=== PATIENT | male | born 1950 | race Caucasian/White ===

== ENCOUNTER 2024-04-28 09:52 | Outpatient (OUT) | payer MEDICARE, SELFPAY ==
--- NOTE | 2024-04-28 10:03 | ECG_ITS ---
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
--- NOTE | 2024-04-28 10:50 | PM.PRESUREVA ---
History of Present Illness History of Present Illness Chief complaint: prostate cancer Narrative: Patient presents for preadmission testing. The patient states he has prostate cancer. He reports incomplete bladder emptying, but denies dysuria, hematuria, abdominal pain, or any other complaints. Review of Systems ROS Narrative REVIEW OF SYSTEMS: Negative except as stated in HPI, ten or more systems reviewed. 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 - Nodules of vocal cords (ICD-10) Encephalitis (1960) ?G04.90 - Encephalitis and encephalomyelitis, unspecified (ICD-10) Seizures ?R56.9 - Unspecified convulsions (ICD-10) Elevated PSA ?R97.20 - Elevated prostate specific antigen [PSA] (ICD-10) BPH (benign prostatic hyperplasia) ?N40.0 - Benign prostatic hyperplasia without lower urinary tract symptoms (ICD-10) Kidney stones ?N20.0 - Calculus of kidney (ICD-10) Hypertension ?I10 - Essential (primary) hypertension (ICD-10) High cholesterol ?E78.00 - Pure hypercholesterolemia, unspecified (ICD-10) Prostate cancer ?C61 - Malignant neoplasm of prostate (ICD-10) Surgical History (Updated 04/28/24 @ 10:48 by Dolores Connell NP) S/P excision of vocal cord nodule ?Z98.890 - Other specified postprocedural states (ICD-10) History of tonsillectomy ?Z90.89 - Acquired absence of other organs (ICD-10) History of arthroplasty of knee ?Z96.659 - Presence of unspecified artificial knee joint (ICD-10) History of colonoscopy ?Z98.890 - Other specified postprocedural states (ICD-10) Hx of prostate biopsy ?Z98.890 - Other specified postprocedural states (ICD-10) Family History (Updated 04/28/24 @ 10:26 by Dolores Connell NP) Other Family history of diabetes mellitus Family history of heart disease Family history of hypertension Family history of myocardial infarction Family history of prostate cancer Social History (Updated 04/28/24 @ 10:18 by Dolores Connell NP) Within the past year, how often did you have a drink containing alcohol: 2-3 times a week Smoking status: Former smoker Non-prescribed substance use: denies use Highest level of school completed/degree received: Master's degree Meds Home Medications and Allergies Home Medications ?Medication ?Instructions ?Recorded ?Confirmed ?Type atorvastatin 20 mg tablet 20 mg PO DAILY 04/28/24 04/28/24 History carbamazepine 200 mg tablet 200 mg PO Q12H 04/28/24 04/28/24 History doxycycline hyclate 20 mg tablet 20 mg PO Q12H 04/28/24 04/28/24 History fosinopril 20 mg tablet 20 mg PO DAILY 04/28/24 04/28/24 History hydrochlorothiazide 25 mg tablet 25 mg PO DAILY 04/28/24 04/28/24 History latanoprost 0.005 % eye drops 1 drp ophthalmic (eye) QPM 04/28/24 04/28/24 History multivitamin (Daily Multi-Vitamin 1 tab PO DAILY 04/28/24 04/28/24 History tablet) tamsulosin 0.4 mg capsule 0.4 mg PO Q24H 04/28/24 04/28/24 History Allergies Allergy/AdvReac Type Severity Reaction Status Date / Time No Known Drug Allergies Allergy Verified 04/28/24 10:15 Exam Narrative Exam Narrative: Constitutional: Awake, alert, comfortable, well-appearing, nontoxic, interactive, vital signs as charted Head: Normocephalic, atraumatic Neck: Supple, normal appearance, normal range of motion, no meningeal signs, no lymphadenopathy Respiratory: No respiratory distress, breath sounds clear Cardiovascular: Regular rate and rhythm, strong and regular heart tones Abdomen: Nontender, normal bowel sounds, soft, no CVA tenderness Musculoskeletal: Normal gait, no swelling or edema Skin: No rashes or induration, no lesions, only visible skin inspected Neuro: No neurological deficits, normal sensation Psychiatric: Oriented ?3, normal affect Assessment and Plan Assessment and Plan (1) Prostate cancer: (2) BPH (benign prostatic hyperplasia): (3) Elevated PSA: Plan [place] seed implant scheduled with Dr. Pacheco May 12, 2024.
--- NOTE | 2024-04-28 11:00 | XR_ITS ---
The [address] [address] Patient Name: LIAM MONTAGUE MRN: [id number] date: 1950 Sex: M Assigned Patient Location: [facility] Current Patient Location: [facility] Accession/Order Number: [id number] Exam Date: 04/28/2024 10:55 Report Date: 04/28/2024 11:13 At the request of: SUJIT VALVERDE Procedure: XR chest 2V PROCEDURE: XR chest 2V DATE: 04/28/2024 9:55 AM CDT COMPARISONS: 06/19/2021 CLINICAL INDICATION: 73 years Male Preop exam FINDINGS: The cardiomediastinal silhouette and pulmonary vasculature are within normal limits. The lungs are clear. There is no evidence of pleural effusion or pneumothorax. XR/XR chest 2V IMPRESSION: Chest radiograph is within normal limits. Electronically authenticated by: PATRICIA GOLDSTEIN Date: 04/28/2024 11:13
[2024-04-28 11:04] LABS: Basophils Percent Auto 0.2 % (0.2-2.0); Eosinophils Absolute Auto 0.1 10^3/uL (0.0-0.7); Eosinophils Percent Auto 3.2 % (0.9-7.0); Hematocrit 39.3 % (42.0-54.0); Hemoglobin 13.4 g/dL (14.0-18.0); Immature Granulocytes Abs Auto 0.01 10^3/uL (0.00-0.03); Immature Granulocytes Pct Auto 0.2 % (0.0-0.5); Lymphocytes Absolute Auto 0.4 10^3/uL (1.2-3.8); Lymphocytes Percent Auto 8.7 % (20.5-60.0); Mean Corpuscular HGB Conc 34.1 g/dL (29.9-35.2); Mean Corpuscular Hemoglobin 31.4 pg (25.9-34.0); Mean Platelet Volume 9.4 fL (9.5-13.5); Monocytes Absolute Auto 0.5 10^3/uL (0.3-0.8); Monocytes Percent Auto 12.6 % (1.7-12.0); Neutrophils Absolute Auto 3.1 10^3/uL (1.4-6.5); Neutrophils Percent Auto 75.1 % (43.0-75.0); Platelet Count 163 10^3/uL (150-450); Red Blood Count 4.27 10^6/uL (4.70-6.10); White Blood Count 4.1 10^3/uL (4.0-11.0)
[2024-04-28 11:11] LABS: INR 1.05; Partial Thromboplastin Time 26.2 sec (22.3-36.2); Prothrombin Time 11.1 sec (9.0-11.6)
[2024-04-28 12:17] LABS: Anion Gap 13.7; Carbon Dioxide 29.7 mmol/L (21.0-32.0); Chloride 100 mmol/L (98-107); Estimated GFR (African America >60 (>=60); Estimated GFR (Non-African Ame >60 (>=60); Glucose 116 mg/dL (74-106); Potassium 3.4 mmol/L (3.5-5.1); Sodium 140 mmol/L (136-145)
== END 2024-04-28 09:53 | disposition home or self-care (01) ==
LOC: PST 09:56
PROVIDERS: PCP Internal Medicine; Visit Provider Urology
DX: Z01.810 Encounter for preprocedural cardiovascular examination (principal); Z01.812 Encounter for preprocedural laboratory examination; Z01.818 Encounter for other preprocedural examination; C61 Malignant neoplasm of prostate
CPT/HCPCS: 71046; 80048; 85025; 85610; 85730; 93005; G0463

== ENCOUNTER 2024-05-12 06:34 | Day surgery (SDC) | payer MEDICARE, SELFPAY ==
[2024-04-28 10:42] VITALS: BP 133/83; PULSE 68; TEMP 36.4; O2SAT 95; BMI 34.7
[2024-05-12] VITALS (8 sets, daily range): BP systolic 123–155; BP diastolic 69–107; PULSE 60–84; TEMP 36.3; O2SAT 95–97; BMI 34.5
--- NOTE | 2024-05-12 | XR_ITS ---
[address] [address] Patient Name: LIAM MONTAGUE MRN: [id number] date: 1950 Sex: M Assigned Patient Location: [facility] Current Patient Location: Accession/Order Number: [id number] Exam Date: 05/12/2024 09:00 Report Date: 05/13/2024 07:58 At the request of: SUJIT VALVERDE Procedure: XR pelvis 1-2V EXAMINATION: XR pelvis 1-2V HISTORY: Prostate seed implant COMPARISON: No relevant comparison available. FINDINGS: 14.09 mgy. A single image BOWEL GAS PATTERN: No abnormal dilation or deviation. CALCIFICATIONS: None significant. OTHER: Prostate brachytherapy implants, normally positioned over the pubic symphysis. Contrast opacification of the urinary bladder XR/XR pelvis 1-2V IMPRESSION: Prostate brachytherapy implants Electronically authenticated by: MISSY OLIVER Date: 05/13/2024 07:58
--- OUTSIDE RECORDS SUMMARY | 2024-05-12 06:39 | XMS_ITS | CCD ---
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 Role Phone MD MATIAS YODER Primary Care MD RAFAEL Berger Attending Unavail MD RAFAEL Chau Attending Unavail MD MATIAS FelicianoONY Primary Care MD MATIAS Cruz [place] Primary Care MD RAFAEL Berger Attending Unavail MD MATIAS Feliciano Consulting MD MATIAS Cruz [place] Primary Care MD RAFAEL Berger Attending Unavail MD MATIAS Feliciano [place] Primary Care MD RAFAEL Berger Attending Unavail MD RAFAEL Chau Admitting Unavail Mady Gilmore Consulting Unavailable MD MATIAS YODERONY Primary Care MD RAFAEL Berger Attending Unavail able MD MATIAS YODER [place] Primary Care MD RAFAEL Berger Admitting Unavail able Anusha Gabriel Consulting Un available MD RAFAEL AVALOS Attending Unavail MD MATIAS Feliciano Consulting MD MATIAS Cruz Consulting MD RAFAEL Berger Attending Unavail able MD MATIAS YODER ROXANNE Primary Care REED Gordillo Primary Care Physician Unavail MD James Antonio Attending Provider [phone] NON STAFF Primary Care Provider UnavailREED Diane Attending Unavailable REED FRITZ Referring Unavailable REED FRITZ Referring Unavailable CHRISTIN BAPTISTE Attending Unavailable MD James Valverde Attending Provider DO Reed Fritz Primary Care Provider [phone] James Valverde Admitting Unavailable Reed Fritz Primary Care Unavailable Valverde, James Attending Unavailable Reed Fritz Primary Care Unavailable Valverde, James Attending Unavailable Valverde, James Admitting Unavailable Valverde, James Admitting Unavailable Reed Fritz Primary Care Unavailable Valverde, James Attending Unavailable Unavailable Primary Care Provider Unavailabl e VALVERDE, James R Attending Unavailable VALVERDE, James R Attending Unavailable VALVERDE, James R Attending Unavailable VALVERDE, James R Attending Unavailable VALVERDE, James R Attending Unavailable VALVERDE, James R Attending Unavailable VALVERDE, James R Attending Unavailable VALVERDE, James R Attending Unavailable VALVERDE, James R Attending Unavailable VALVERDE, James R Attending Unavailable ENGELER, G YVES Attending Unavailable ENGELER, G YVES Referring Unavailable ENGELER, G YVES Attending Unavailable ENGELER, G YVES Referring Unavailable ENGELER, G YVES Referring Unavailable ENGELER, G YVES Referring Unavailable ENGELER, G YVES Referring Unavailable ENGELER, G YVES Referring Unavailable ENGELER, G YVES Referring Unavailable ENGELER, G YVES Referring Unavailable ENGELER, G YVES Referring Unavailable ENGELER, G YVES Referring Unavailable ENGELER, G YVES Referring Unavailable ENGELER, G YVES Referring Unavailable ENGELER, G YVES Referring Unavailable EDMUNDO ANGUIANO Attending Unavailable ENGELER, G YVES Referring Unavailable ENGELER, G YVES Referring Unavailable ENGELER, G YVES Attending Unavailable ENGELER, G YVES Attending Unavailable ENGELER, G YVES Referring Unavailable ENGELER, G YVES Referring Unavailable ENGELER, G YVES Attending Unavailable ENGELER, G YVES Referring Unavailable ENGELER, G YVES Attending Unavailable ENGELER, G YVES Referring Unavailable ENGELER, G YVES Referring Unavailable ENGELER, G YVES Referring Unavailable ENGELER, G YVES Attending Unavailable ENGELER, G YVES Referring Unavailable ENGELER, G YVES Referring Unavailable ENGELER, G YVES Attending Unavailable ENGELER, G YVES Referring Unavailable ENGELER, G VYES Attending Unavailable BOBBY KAT Referring Unavailable ENGELER, G YVES Referring Unavailable ENGELER, G YVES Referring Unavailable Allergies Allergy Classification Reported Allergen(s) Allergy Type Date of Onset Reaction(s) Facility (1 source) No Known Medication Allergies; Translations: [No Known Medication Allergies] Propensity to adverse reactions (disorder) [facility] Repository Medications Current Medications Medication Drug Class(es) Dates Sig (Normalized) Sig (Original) acetaminophen 325 mg / HYDROcodone bitartrate 7.5 mg oral tablet (1 source) Opioid Agonist Start: 05-29-2022 take 1 tablet by mouth once [place] 325 mg-7.5 mg oral tablet 1 tab(s), Oral, Once, 1 tab(s), Refill(s) 0, Take 1 hour prior to procedure, [facility] [id number], 183, cm, 04/23/22 12:16:00 EDT, Height/Length Dosing, 113.3, kg, 04/23/22 12:16:00 EDT, Weight Dosing Start Date: 05/29/22 Status: Ordered atorvastatin 20 mg oral tablet (20 sources) HMG-CoA Reductase Inhibitor Start: 04-23-2022 atorvastatin (LIPITOR) 20 mg tablet once daily. 04/23/2022 Active carBAMazepine 200 mg oral tablet (20 sources) Mood Stabilizer Start: 01-12-2023 take 1 tablet by mouth twice daily carBAMazepine (TEGRETOL) 200 mg tablet Take 200 mg by mouth two times a day. 01/12/2023 Active Start: 04-23-2022 carbamazepine Start Date: 04/23/22 Status: Ordered ciprofloxacin 500 mg oral tablet (2 sources) Quinolone Antimicrobial Start: 04-23-2022 take 1 tablet by mouth twice daily Cipro 500 mg Tab 500 mg = 1 tab(s), Oral, BID, Start 3 days prior to procedure., # 14 tab(s), Refills(s) 0, Pharmacy: [facility] [id number], 183, cm, 04/23/22 12:16:00 EDT, Height/Length Dosing, 113.3, kg, 04/23/22 12:16:00 EDT, Weight Dosing Start Date: 04/23/22 Status: Ordered doxycycline hyclate 20 mg oral tablet (20 sources) Tetracycline-class Drug Start: 01-25-2024 take 1 tablet by mouth twice daily doxycycline 20 mg tablet Take 20 mg by mouth two times a day. 01/25/2024 Active Start: 04-23-2022 take 1 tablet by yaritza th every twelve hours doxycycline 20 mg Tab 20 mg = 1 tab(s), Oral, q12hr Start Date: 04/23/22 Status: Ordered fosinopril sodium 20 mg oral tablet (20 sources) Angiotensin Converting Enzyme Inhibitor Start: 04-23-2022 take 1 tablet by mouth once daily Fosinopril Sodium (MONOPRIL) 20 mg tablet Take 1 tablet by mouth once daily. 06/05/2023 Active hydroCHLOROthiazide 25 mg oral tablet (20 sources) Thiazide Diuretic Start: 04-23-2022 End: 02-24-2024 take 1 tablet by mouth once daily hydroCHLOROthiazide 25 mg tablet Take 25 mg by mouth once daily. 04/23/2022 Active latanoprost 0.05 mg/ml ophthalmic solution (20 sources) Prostaglandin Analog Start: 01-25-2024 take 1 drop(s) into the eye(s) once daily at bedtime Latanoprost Active 1 DROPS EYE-BOTH Daily at bedtime January 25, 2024 12:00am Start: 04-23-2022 take 1 drop(s) into the eye(s) once daily at bedtime LATANOPROST, PF, OPHTHALMIC Use 1 Drop in both eyes daily at bedtime. 04/23/2022 Active Start: 04-23-2022 take 1 drop(s) into the eye(s) once daily at bedtime LATANOPROST, PF, OPHTHALMIC Use 1 Drop in both eyes daily at bedtime. 0 04/23/2022 Active Start: 04-23-2022 latanoprost op hthalmic qPM, Refill(s) 0 Start Date: 04/23/22 Status: Ordered tamsulosin hydrochloride 0.4 mg oral capsule (6 sources) alpha-Adrenergic Esthela Start: 04-11-2024 take 1 capsule by mouth once daily at bedtime tamsulosin (FLOMAX) 0.4 mg Take 1 capsule by mouth daily at bedtime. 30 capsule 2 04/11/2024 Active Problems Problem Classification Problem Date Documented Date Episodic/Chronic Cancer of prostate (13 sources) Malignant neoplasm of prostate; Translations: [Malignant tumor of prostate] Onset: 02-10-20 24 Chronic Disorders of lipid metabolism (7 sources) Hypercholesterolemia 04-23-2022 Chronic Epilepsy; convulsions (7 sources) Seizure 04-23-2022 Episodic Essential hypertension (7 sources) Hypertensive disorder 04-23-2022 Chronic Headache; including migraine (7 sources) Headache 04-23-2022 Episodic Hyperplasia of prostate (11 sources) Benign prostatic hypertrophy without outflow obstruction; Translations: [Benign prostatic hyperplasia without lower urinary tract symptoms] Onset: 04-23-20 Chronic Inflammatory conditions of male genital organs (4 sources) Prostatitis 05-27-2023 Episodic Other gastrointestinal disorders (6 sources) Incontinence of feces; Translations: [Full incontinence of feces] Onset: 05-27-20 Episodic Other screening for suspected conditions (not mental disorders or infectious disease) (10 sources) Raised prostate specific antigen; Translations: [Elevated prostate specific antigen [PSA]] Onset: 04-23-20 Episodic Residual codes; unclassified (6 sources) Family history of cancer; Translations: [Family history of malignant neoplasm of prostate] Onset: 04-23-20 Episodic Residual codes; unclassified (5 sources) Family history of prostate cancer 06-25-2022 Episodic Results Test Name Value Interpretation Reference Range Facil ity CNOVon 04-28-2024 CNOV Office Visit (RADTSA) JAYLEN MONTAGUE ([id number]) 1950 M Date Time Provider Department 04/28/24 9:00 AM Lisa RAUSCH During your visit today, we recorded the following information about you: Lisa Rausch MD 04/28/2024 9:34 AM Signed UNIVERSAL PROTOCOL / SAFETY CHECKLIST Procedure to be Performed: prostate volume study Sign In: A Moment of CARE was completed. Personnel directly involved with the procedure wore the appropriate PPE (Personal Protective Equipment). Patient/Surrogate Stated/Verified: PATIENT VERIFIED(optional for EMERGENT procedures): Patient name, Date of , Relevant allergies, and The intended procedure Time Out Communication: Intended patient and procedure match the source documents. Consent documented and matches the intended procedure. Sign Out: SIGN OUT (optional for EMERGENT procedures): No specimen collected. All instruments, equipment, possible retained foreign bodies accounted for. Lisa Rausch MD Allergies As of Date: 04/28/2024 (No Known Allergies) Date Reviewed: 04/18/2024 Reviewed by: Dolores Green, ARTURO - Fully Assessed Primary Visit Diagnosis:Malignant neoplasm of prostate (HCC) [C61] Prescriptions as of 04/28/2024 - tamsulosin (FLOMAX) 0.4 mg Take 1 capsule by mouth daily at bedtime. - carBAMazepine (TEGRETOL) 200 mg tablet Take 200 mg by mouth two times a day. - Fosinopril Sodium (MONOPRIL) 20 mg tablet Take 1 tablet by mouth once daily. - atorvastatin (LIPITOR) 20 mg tablet once daily. - doxycycline 20 mg tablet Take 20 mg by mouth two times a day. - hydroCHLOROthiazide 25 mg tablet Take 25 mg by mouth once daily. - LATANOPROST, PF, OPHTHALMIC Use 1 Drop in both eyes daily at bedtime. Problem List As Of Date: 04/28/2024 (None) Encounter Status:Closed by Lisa RAUSCH on 04/28/24 [facility] CNOVon 04-18-2024 CNOV Office Visit (RADTSA) JAYLEN MONTAGUE ([id number]) 1950 M Date Time Provider Department 04/18/24 2:30 PM EDMUNDO ANGUIANO During your visit today, we recorded the following information about you: Temperature Pulse Respiration Blood pressure 97.6 degrees 71/minute 16/minute 138/81 Weight 118 kg Edmundo Anguiano MD 04/26/2024 2:25 AM Signed Radiation Oncology - On Treatment Review (OTR) Note PATIENT NAME: Jaylen Montague PATIENT DIAGNOSIS: Prostate adenocarcinoma, initial PSA 12.1, biopsy Mil[place] score 4 + 3 = 7 (grade group 3), clinical stage T2a, N0, M0, stage IIC [T1-T2, N0, M0, PSA <20, GG 3] (AJCC 8th ed.), s/p TRUS Random and MR Targeted biopsy. COURSE: definitive Current dose: 3780 cGy in 21 fx Planned dose: 4500 cGy in 25 fx SUBJECTIVE: Tolerating XRT well denies any burning/discomfort urination and notes nocturia 1-2 times and no difficulty straining or starting his stream or hematuria or incontinence/leakage . He does note occasional incomplete emptying and denies any nausea. Some diarrhea recently and endorses fatigue without hot flashes and has good appetite and hydration with stable weight. PHYSICAL EXAM: KPS: 90 General Appearance: Alert and oriented. No acute distress. IMAGING/LAB RESULTS: None TOXICITY ASSESSMENT (CTC v4.0): Fatigue:grade 1 - Fatigue relieved by rest Radiation Dermatitis: grade 0 - No symptoms Diarrhea:grade 1 - Increase to >4 stools per day over baseline; mild increase in ostomy output compared to baseline Proctitis: grade 0 - No symptoms Urinary frequency: grade 1 - present Dysuria: grade 0 - No symptoms Urinary incontinence: grade 0 (No symptoms) Urinary retention: grade 1 - Urinary, suprapubic or intermittent catheter placement not indicated; able to void with some residual Treatment chart checked: Yes Patient treatment site reviewed and verified:Yes Port films reviewed and current:Yes Medications started: None ASSESSMENT/PLAN: Clinically stable. Toxicity within expected parameters. Continue radiation treatment as planned. Discussed the use of Imodium should his diarrhea persist. Edmundo Anguiano MD Allergies As of Date: 04/18/2024 (No Known Allergies) Date Reviewed: 04/18/2024 Reviewed by: Doloers Green RN - Fully Assessed Reason for Visit: Radiotherapy On-treatment Visit [1722] Primary Visit Diagnosis:Malignant neoplasm of prostate (HCC) [C61] Prescriptions as of 04/26/2024 - tamsulosin (FLOMAX) 0.4 mg Take 1 capsule by mouth daily at bedtime. - carBAMazepine (TEGRETOL) 200 mg tablet Take 200 mg by mouth two times a day. - Fosinopril Sodium (MONOPRIL) 20 mg tablet Take 1 tablet by mouth once daily. - atorvastatin (LIPITOR) 20 mg tablet once daily. - doxycycline 20 mg tablet Take 20 mg by mouth two times a day. - hydroCHLOROthiazide 25 mg tablet Take 25 mg by mouth once daily. - LATANOPROST, PF, OPHTHALMIC Use 1 Drop in both eyes daily at bedtime. Problem List As Of Date: 04/18/2024 (None) Encounter Status:Closed by EDMUNDO ANGUIANO on 04/26/24 [facility] CNOVon 04-11-2024 CNOV Office Visit (RADTSA) JAYLEN MONTAGUE ([id number]) 1950 M Date Time Provider Department 04/11/24 2:30 PM Lisa RAUSCH During your visit today, we recorded the following information about you: Temperature Pulse Respiration Blood pressure 97.4 degrees 64/minute 18/minute 158/93 Weight 112.7 kg Lisa Rausch MD 04/11/2024 2:39 PM Signed Radiation Oncology - On Treatment Review (OTR) Note PATIENT NAME: Jaylen Montague PATIENT DIAGNOSIS: Prostate adenocarcinoma, initial PSA 12.1, biopsy Milford score 4 + 3 = 7 (grade group 3), clinical stage T2a, N0, M0, stage IIC [T1-T2, N0, M0, PSA <20, GG 3] (AJCC 8th ed.), s/p TRUS Random and MR Targeted biopsy. COURSE: definitive Current dose: 2880 cGy in 16 fx Planned dose: 4500 cGy in 25 fx SUBJECTIVE: Doing well, still with mild obstructive issues. No significant bowel issues. PHYSICAL EXAM: 04/11/24 1431 BP: 158/93 Pulse: 64 Resp: 18 Temp: 36.3 ?C (97.4 ?F) SpO2: 99% Weight: 112.7 kg (248 lb 7.3 oz) KPS: 100 General Appearance: Alert and oriented. No acute distress. IMAGING/LAB RESULTS: Hemoglobin (g/dL) Date Value 03/31/2024 14.5 Hematocrit (%) Date Value 03/31/2024 41.6 WBC (k/uL) Date Value 03/31/2024 3.85 Platelet Count (k/uL) Date Value 03/31/2024 173 TOXICITY ASSESSMENT (CTC v4.0): Fatigue:grade 1 - Fatigue relieved by rest Radiation Dermatitis: grade 0 - No symptoms Diarrhea:grade 1 Proctitis: grade 0 - No symptoms Urinary frequency: grade 1 Dysuria: grade 0 - No symptoms Urinary incontinence: grade 0 (No symptoms) Urinary retention: grade 1 Treatment chart checked: Yes Patient treatment site reviewed and verified:Yes Port films reviewed and current:Yes Medications started: None ASSESSMENT/PLAN: Patient doing well. Recommend starting Flomax . Chart and imaging reviewed. Continue radiation as outlined. Lisa Rausch MD Allergies As of Date: 04/11/2024 (No Known Allergies) Date Reviewed: 04/11/2024 Reviewed by: Dolores Green RN - Fully Assessed Reason for Visit: Radiotherapy On-treatment Visit [1722] Primary Visit Diagnosis:Malignant neoplasm of prostate (HCC) [C61] Order(s):tamsulosin (FLOMAX) 0.4 mgTake 1 capsule by mouth daily at bedtime.Disp: 30 capsuleRfl: 2 Prescriptions as of 04/11/2024 - tamsulosin (FLOMAX) 0.4 mg Take 1 capsule by mouth daily at bedtime. - carBAMazepine (TEGRETOL) 200 mg tablet Take 200 mg by mouth two times a day. - Fosinopril Sodium (MONOPRIL) 20 mg tablet Take 1 tablet by mouth once daily. - atorvastatin (LIPITOR) 20 mg tablet once daily. - doxycycline 20 mg tablet Take 20 mg by mouth two times a day. - hydroCHLOROthiazide 25 mg tablet Take 25 mg by mouth once daily. - LATANOPROST, PF, OPHTHALMIC Use 1 Drop in both eyes daily at bedtime. Problem List As Of Date: 04/11/2024 (None) Prescriptions ordered this encounter Disp Refills Start End TAMSULOSIN 0.4 MG CAPSULE 30 c* 2 04/11/2024 Route: ORAL Sig: Take 1 capsule by mouth daily at bedtime. Encounter Status:Closed by Lisa RAUSCH on 04/11/24 [facility] CNOVon 04-04-2024 CNOV Office Visit (RADTSA) JAYLEN MONTAGUE ([id number]) 1950 M Date Time Provider Department 04/04/24 2:45 PM Lisa RAUSCH During your visit today, we recorded the following information about you: Temperature Pulse Respiration Blood pressure 97.4 degrees 66/minute 18/minute 150/86 Weight 117.3 kg Lisa Rausch MD 04/04/2024 3:12 PM Signed Radiation Oncology - On Treatment Review (OTR) Note PATIENT NAME: Jaylen Montague PATIENT DIAGNOSIS: Prostate adenocarcinoma, initial PSA 12.1, biopsy Milford score 4 + 3 = 7 (grade group 3), clinical stage T2a, N0, M0, stage IIC [T1-T2, N0, M0, PSA <20, GG 3] (AJCC 8th ed.), s/p TRUS Random and MR Targeted biopsy. COURSE: definitive Current dose: 1980 cGy in 11 fx Planned dose: 4500 cGy in 25 fx SUBJECTIVE: Doing well, mild issues with obstructive symptoms most of the time emptying well. No dysuria or hematuria. PHYSICAL EXAM: 04/04/24 1441 BP: 150/86 Pulse: 66 Resp: 18 Temp: 36.3 ?C (97.4 ?F) SpO2: 99% Weight: 117.3 kg (258 lb 9.6 oz) KPS: 100 General Appearance: Alert and oriented. No acute distress. IMAGING/LAB RESULTS: Hemoglobin (g/dL) Date Value 03/31/2024 14.5 Hematocrit (%) Date Value 03/31/2024 41.6 WBC (k/uL) Date Value 03/31/2024 3.85 Platelet Count (k/uL) Date Value 03/31/2024 173 TOXICITY ASSESSMENT (CTC v4.0): Fatigue:grade 1 - Fatigue relieved by rest Radiation Dermatitis: grade 0 - No symptoms Diarrhea:grade 1 Proctitis: grade 0 - No symptoms Urinary frequency: grade 1 Dysuria: grade 0 - No symptoms Urinary incontinence: grade 0 (No symptoms) Urinary retention: grade 1 Treatment chart checked: Yes Patient treatment site reviewed and verified:Yes Port films reviewed and current:Yes Medications started: None ASSESSMENT/PLAN: Patient doing well. Discussed adding Flomax patient wants to hold off for now. Chart and imaging reviewed. Continue radiation as outlined. Lisa Rausch MD Allergies As of Date: 04/04/2024 (No Known Allergies) Date Reviewed: 04/04/2024 Reviewed by: Dolores Green RN - Fully Assessed Reason for Visit: Radiotherapy On-treatment Visit [1722] Primary Visit Diagnosis:Malignant neoplasm of prostate (HCC) [C61] Prescriptions as of 04/04/2024 - carBAMazepine (TEGRETOL) 200 mg tablet Take 200 mg by mouth two times a day. - Fosinopril Sodium (MONOPRIL) 20 mg tablet Take 1 tablet by mouth once daily. - atorvastatin (LIPITOR) 20 mg tablet once daily. - doxycycline 20 mg tablet Take 20 mg by mouth two times a day. - hydroCHLOROthiazide 25 mg tablet Take 25 mg by mouth once daily. - LATANOPROST, PF, OPHTHALMIC Use 1 Drop in both eyes daily at bedtime. Problem List As Of Date: 04/04/2024 (None) Encounter Status:Closed by Lisa RAUSCH on 04/04/24 Normal [facility] CBC W Auto Differential pane l (Bld)on 03-31-2024 Basophils (Bld) [#/Vol] [facility] Basophils/100 WBC (Bld) 0.3 % [facility] Differential cell count method Nom (Bld) Auto [facility] Eosinophils (Bld) [#/Vol] 0.07 10*3/uL [facility] Eosinophils/100 WBC (Bld) 1.8 % [facility] Erythrocyte distribution width (RBC) [Ratio] 12.3 % 11.5 - 15.0 % [facility] Hematocrit (Bld) [Volume fraction] 41.6 % 39.0 - 51.0 % [facility] Hemoglobin (Bld) [Mass/Vol] 14.5 g/dL 13.0 - 17.0 g/dL [facility] Immature granulocytes (Bld) [#/Vol] [facility] Immature granulocytes/100 WBC (Bld) 0.3 % [facility] Interpretation and review of laboratory results Abnormal [facility] Lymphocytes (Bld) [#/Vol] 0.59 10*3/uL Low [facility] Lymphocytes/100 WBC (Bld) 15.3 % [facility] MCH (RBC) [Entitic mass] 32.2 pg 26.0 - 34.0 pg [facility] MCHC (RBC) [Mass/Vol] 34.9 g/dL 30.5 - 36.0 g/dL [facility] MCV (RBC) [Entitic vol] 92.2 fL 80.0 - 100.0 fL [facility] Monocytes (Bld) [#/Vol] 0.26 10*3/uL NINF [facility] Monocytes/100 WBC (Bld) 6.8 % [facility] Neutrophils (Bld) [#/Vol] 2.91 10*3/uL [facility] Neutrophils/100 WBC (Bld) 75.5 % [facility] Nucleated RBC (Bld) [#/Vol] NINF [facility] Nucleated RBC/100 WBC (Bld) [Ratio] 0.0 % /100 WBC [facility] Platelet mean volume (Bld) [Entitic vol] 10.5 fL 9.0 - 12.7 fL [facility] Platelets (Bld) [#/Vol] 173 10*3/uL [facility] RBC (Bld) [#/Vol] 4.51 10*6/uL 4.20 - 6.00 m/uL [facility] WBC (Bld) [#/Vol] 3.85 10*3/uL [facility] Basophils (Bld) [#/Vol] 10*3/uL Normal <0.11 [facility] Comment on above: Order Comment: Speci men Type: BLOOD SPECIMENOrdering Facility: [facility] Address: [address] [place] [address] Performed By: #### 5 7021-8 ####[facility] LABCLIA [id number] [place] [address] Basophils/100 WBC (Bld) 0.3 % Normal [facility] Comment on above: Order Comment: Speci men Type: BLOOD SPECIMENOrdering Facility: [facility] Address: [address] [place] [address] Performed By: #### 5 7021-8 ####[facility] LABCLIA [id number] [place] [address] Differential cell count method Nom (Bld) Auto Normal [facility] Comment on above: Order Comment: Speci men Type: BLOOD SPECIMENOrdering Facility: [facility] Address: [address] [place] [address] Performed By: #### 5 7021-8 ####[facility] LABCLIA [id number] [place] [address] Eosinophils (Bld) [#/Vol] 0.07 10*3/uL Normal <0.46 [facility] Comment on above: Order Comment: Speci men Type: BLOOD SPECIMENOrdering Facility: [facility] Address: [address] [place] [address] Performed By: #### 5 7021-8 ####[facility] LABCLIA [id number] [place] [address] Eosinophils/100 WBC (Bld) 1.8 % Normal [facility] Comment on above: Order Comment: Speci men Type: BLOOD SPECIMENOrdering Facility: [facility] Address: [address] [place] [address] Performed By: #### 5 7021-8 ####[facility] LABCLIA [id number] [place] [address] Erythrocyte distribution width (RBC) [Ratio] 12.3 % Normal 11.5-15.0 [facility] Comment on above: Order Comment: Speci men Type: BLOOD SPECIMENOrdering Facility: [facility] Address: [address] [place] [address] Performed By: #### 5 7021-8 ####[facility] LABIA [id number] [place] [address] Hematocrit (Bld) [Volume fraction] 41.6 % Normal 39.0-51.0 [facility] Comment on above: Order Comment: Speci men Type: BLOOD SPECIMENOrdering Facility: [facility] Address: [address] [place] [address] Performed By: #### 5 7021-8 ####[facility] LABCLIA [id number] [place] [address] Hemoglobin (Bld) [Mass/Vol] 14.5 g/dL Normal 13.0-17.0 [facility] Comment on above: Order Comment: Speci men Type: BLOOD SPECIMENOrdering Facility: [facility] Address: [address] [place] [address] Performed By: #### 5 7021-8 ####[facility] LABCLIA [id number] [place] [address] Immature granulocytes (Bld) [#/Vol] 10*3/uL Normal <0.10 [facility] Comment on above: Order Comment: Speci men Type: BLOOD SPECIMENOrdering Facility: [facility] Address: [address] [place] [address] Performed By: #### 5 7021-8 ####[facility] LABCLIA [id number] [place] [address] Immature granulocytes/100 WBC (Bld) 0.3 % Normal [facility] Comment on above: Order Comment: Speci men Type: BLOOD SPECIMENOrdering Facility: [facility] Address: [address] [place] [address] Performed By: #### 5 7021-8 ####[facility] LABCLIA [id number] [place] [address] Lymphocytes (Bld) [#/Vol] 0.59 10*3/uL Low 1.00-4.00 [facility] Comment on above: Order Comment: Speci men Type: BLOOD SPECIMENOrdering Facility: [facility] Address: [address] [place] [address] Performed By: #### 5 7021-8 ####[facility] LABCLIA [id number] [place] [address] Lymphocytes/100 WBC (Bld) 15.3 % Normal [facility] Comment on above: Order Comment: Speci men Type: BLOOD SPECIMENOrdering Facility: [facility] Address: [address] [place] [address] Performed By: #### 5 7021-8 ####[facility] LABCLIA [id number] [place] [address] MCH (RBC) [Entitic mass] 32.2 pg Normal 26.0-34.0 [facility] Comment on above: Order Comment: Speci men Type: BLOOD SPECIMENOrdering Facility: [facility] Address: [address] [place] [address] Performed By: #### 5 7021-8 ####[facility] LABCLIA [id number] [place] [address] MCHC (RBC) [Mass/Vol] 34.9 g/dL Normal 30.5-36.0 [facility] Comment on above: Order Comment: Speci men Type: BLOOD SPECIMENOrdering Facility: [facility] Address: [address] [place] [address] Performed By: #### 5 7021-8 ####[facility] LABCLIA [id number] [place] [address] MCV (RBC) [Entitic vol] 92.2 fL Normal 80.0-100.0 [facility] Comment on above: Order Comment: Speci men Type: BLOOD SPECIMENOrdering Facility: [facility] Address: [address] [place] [address] Performed By: #### 5 7021-8 ####[facility] LABIA [id number] [place] [address] Monocytes (Bld) [#/Vol] 0.26 10*3/uL Normal <0.87 [facility] Comment on above: Order Comment: Speci men Type: BLOOD SPECIMENOrdering Facility: [facility] Address: [address] [place] [address] Performed By: #### 5 7021-8 ####[facility] LABCLIA [id number] [place] [address] Monocytes/100 WBC (Bld) 6.8 % Normal [facility] Comment on above: Order Comment: Speci men Type: BLOOD SPECIMENOrdering Facility: [facility] Address: [address] [place] [address] Performed By: #### 5 7021-8 ####[facility] LABCLIA [id number] [place] [address] Neutrophils (Bld) [#/Vol] 2.91 10*3/uL Normal 1.45-7.50 [facility] Comment on above: Order Comment: Speci men Type: BLOOD SPECIMENOrdering Facility: [facility] Address: [address] [place] [address] Performed By: #### 5 7021-8 ####[facility] LABCLIA [id number] [place] [address] Neutrophils/100 WBC (Bld) 75.5 % Normal [facility] Comment on above: Order Comment: Speci men Type: BLOOD SPECIMENOrdering Facility: [facility] Address: [address] [place] [address] Performed By: #### 5 7021-8 ####[facility] LABCLIA [id number] [place] [address] Nucleated RBC (Bld) [#/Vol] 10*3/uL Normal <0.01 [facility] Comment on above: Order Comment: Speci men Type: BLOOD SPECIMENOrdering Facility: [facility] Address: [address] [place] [address] Performed By: #### 5 7021-8 ####[facility] LABCLIA [id number] [place] [address] Nucleated RBC/100 WBC (Bld) [Ratio] 0.0 /100 WBC Normal [facility] Comment on above: Order Comment: Speci men Type: BLOOD SPECIMENOrdering Facility: [facility] Address: [address] [place] [address] Performed By: #### 5 7021-8 ####[facility] LABCLIA [id number] [place] [address] Platelet mean volume (Bld) [Entitic vol] 10.5 fL Normal 9.0-12.7 [facility] Comment on above: Order Comment: Speci men Type: BLOOD SPECIMENOrdering Facility: [facility] Address: [address] [place] [address] Performed By: #### 5 7021-8 ####[facility] LABCLIA [id number] [place] [address] Platelets (Bld) [#/Vol] 173 10*3/uL Normal 150-400 [facility] Comment on above: Order Comment: Speci men Type: BLOOD SPECIMENOrdering Facility: [facility] Address: [address] [place] [address] Performed By: #### 5 7021-8 ####[facility] LABCLIA [id number] [place] [address] RBC (Bld) [#/Vol] 4.51 10*6/uL Normal 4.20-6.00 [facility] Comment on above: Order Comment: Speci men Type: BLOOD SPECIMENOrdering Facility: [facility] Address: [address] [place] [address] Performed By: #### 5 7021-8 ####[facility] LABCLIA [id number] [place] [address] WBC (Bld) [#/Vol] 3.85 10*3/uL Normal 3.70-11.00 [facility] Comment on above: Order Comment: Speci men Type: BLOOD SPECIMENOrdering Facility: [facility] Address: [address] [place] [address] Performed By: #### 5 7021-8 ####[facility] LABCLIA [id number] [place] [address] FLORAOVon 03-31-2024 CNOV Office Visit (RADTSA) CLARIJAYLEN ([id number]) 1950 M Date Time Provider Department 03/31/24 1:45 PM LAB/PORT RADT SANDY NAVEEN During your visit today, we recorded the following information about you: Jorge Raygoza LPN 03/31/2024 2:14 PM Signed Jaylen Montague presents in office today for: Lab Draw only . Ordering Provider: Yves Rausch M.D. Test (s) ordered: CBC Method for obtaining blood: Phlebotomy was performed, accessing left antecubital vein. Needle removed intact. Dressing secured. Patient denies discomfort, dizziness, light-headedness or weakness and left the department without assist. Jorge Raygoza LPN Allergies As of Date: 03/31/2024 (No Known Allergies) Date Reviewed: 03/28/2024 Reviewed by: Jorge Raygoza LPN - Fully Assessed Visit Diagnosis:Malignant neoplasm of prostate (HCC) [C61] Order(s):COMPLETE BLOOD COUNT AND DIFFERENTIAL [SQCBCDIF] Order #: [id number]. #:[id number] Prescriptions as of 03/31/2024 - carBAMazepine (TEGRETOL) 200 mg tablet Take 200 mg by mouth two times a day. - Fosinopril Sodium (MONOPRIL) 20 mg tablet Take 1 tablet by mouth once daily. - atorvastatin (LIPITOR) 20 mg tablet once daily. - doxycycline 20 mg tablet Take 20 mg by mouth two times a day. - hydroCHLOROthiazide 25 mg tablet Take 25 mg by mouth once daily. - LATANOPROST, PF, OPHTHALMIC Use 1 Drop in both eyes daily at bedtime. Problem List As Of Date: 03/31/2024 (None) Visit Notes: >> Jaret Jorge WENCESLAO Vidya Mar 31, 2024 2:14 PM Status: Signed Jaylen Montague presents in office today for: Lab Draw only . Ordering Provider: Yves Rausch M.D. Test (s) ordered: CBC Method for obtaining blood: Phlebotomy was performed, accessing left antecubital vein. Needle removed intact. Dressing secured. Patient denies discomfort, dizziness, light-headedness or weakness and left the department without assist. Jorge Raygoza WENCESLAO Encounter Status:Closed by JORGE RAYGOZA on 03/31/24 Normal [facility] CNOVon 03-28-2024 CNOV Office Visit (RADTSA) JAYLEN MONTAGUE ([id number]) 1950 M Date Time Provider Department 03/28/24 3:30 PM Lisa RAUSCH During your visit today, we recorded the following information about you: Temperature Pulse Respiration Blood pressure 97.6 degrees 60/minute 16/minute 128/83 Weight 117 kg Lisa Rausch MD 03/28/2024 4:14 PM Signed Radiation Oncology - On Treatment Review (OTR) Note PATIENT NAME: Jaylen Montague PATIENT DIAGNOSIS: Prostate adenocarcinoma, initial PSA 12.1, biopsy Vernon score 4 + 3 = 7 (grade group 3), clinical stage T2a, N0, M0, stage IIC [T1-T2, N0, M0, PSA <20, GG 3] (AJCC 8th ed.), s/p TRUS Random and MR Targeted biopsy. COURSE: definitive Current dose: 1080 cGy in 6 fx Planned dose: 4500 cGy in 25 fx SUBJECTIVE: Doing well mild increased bladder and bowel frequency. PHYSICAL EXAM: 03/28/24 1558 BP: 128/83 Pulse: 60 Resp: 16 Temp: 36.4 ?C (97.6 ?F) SpO2: 98% Weight: 117 kg (257 lb 15 oz) KPS: 100 General Appearance: Alert and oriented. No acute distress. IMAGING/LAB RESULTS: None TOXICITY ASSESSMENT (CTC v4.0): Fatigue:grade 1 - Fatigue relieved by rest Radiation Dermatitis: grade 0 - No symptoms Diarrhea:grade 1 Proctitis: grade 0 - No symptoms Urinary frequency: grade 1 Dysuria: grade 0 - No symptoms Urinary incontinence: grade 0 (No symptoms) Urinary retention: grade 0 - No symptoms Treatment chart checked: Yes Patient treatment site reviewed and verified:Yes Port films reviewed and current:Yes Medications started: None ASSESSMENT/PLAN: Patient doing well. Chart and imaging reviewed. Continue radiation as outlined. Lisa Rausch MD Allergies As of Date: 03/28/2024 (No Known Allergies) Date Reviewed: 03/28/2024 Reviewed by: Jorge Raygoza LPN - Fully Assessed Reason for Visit: Radiotherapy On-treatment Visit [1722] Primary Visit Diagnosis:Malignant neoplasm of prostate (HCC) [C61] Prescriptions as of 03/28/2024 - carBAMazepine (TEGRETOL) 200 mg tablet Take 200 mg by mouth two times a day. - Fosinopril Sodium (MONOPRIL) 20 mg tablet Take 1 tablet by mouth once daily. - atorvastatin (LIPITOR) 20 mg tablet once daily. - doxycycline 20 mg tablet Take 20 mg by mouth two times a day. - hydroCHLOROthiazide 25 mg tablet Take 25 mg by mouth once daily. - LATANOPROST, PF, OPHTHALMIC Use 1 Drop in both eyes daily at bedtime. Problem List As Of Date: 03/28/2024 (None) Encounter Status:Closed by Lisa RAUSCH on 03/28/24 [facility] CNOVon 03-21-2024 CNOV Office Visit (RADTSA) JAYLEN MONTAGUE ([id number]) 1950 M Date Time Provider Department 03/21/24 2:15 PM Lisa RAUSCH During your visit today, we recorded the following information about you: Temperature Pulse Respiration Blood pressure 98 degrees 67/minute 16/minute 136/85 Weight 116.6 kg Lisa Rausch MD 03/21/2024 2:51 PM Signed Radiation Oncology - On Treatment Review (OTR) Note PATIENT NAME: Jaylen Montague PATIENT DIAGNOSIS: Prostate adenocarcinoma, initial PSA 12.1, biopsy Vernon score 4 + 3 = 7 (grade group 3), clinical stage T2a, N0, M0, stage IIC [T1-T2, N0, M0, PSA <20, GG 3] (AJCC 8th ed.), s/p TRUS Random and MR Targeted biopsy. COURSE: definitive Current dose: 180 cGy in 1 fx Planned dose: 4500 cGy in 25 fx SUBJECTIVE: Here to start radiation, doing much better after recent COVID infection. PHYSICAL EXAM: KPS: 100 General Appearance: Alert and oriented. No acute distress. IMAGING/LAB RESULTS: None TOXICITY ASSESSMENT (CTC v4.0): Fatigue:grade 1 - Fatigue relieved by rest Radiation Dermatitis: grade 0 - No symptoms Diarrhea:grade 0 - No symptoms Proctitis: grade 0 - No symptoms Urinary frequency: grade 0 - No symptoms Dysuria: grade 0 - No symptoms Urinary incontinence: grade 0 (No symptoms) Urinary retention: grade 0 - No symptoms Treatment chart checked: Yes Patient treatment site reviewed and verified:Yes Port films reviewed and current:Yes Medications started: None ASSESSMENT/PLAN: Patient starting radiation today. Plan of care and expectations again reviewed. Plan, MU calculations and qa report reviewed. Initial imaging including cone beam ct and verification reviewed and approved. First treatment given. Continue radiation as prescribed. Lisa Rausch MD Allergies As of Date: 03/21/2024 (No Known Allergies) Date Reviewed: 03/21/2024 Reviewed by: Jorge Raygoza LPN - Fully Assessed Reason for Visit: Radiotherapy On-treatment Visit [1722] Primary Visit Diagnosis:Malignant neoplasm of prostate (HCC) [C61] Prescriptions as of 03/21/2024 - carBAMazepine (TEGRETOL) 200 mg tablet Take 200 mg by mouth two times a day. - Fosinopril Sodium (MONOPRIL) 20 mg tablet Take 1 tablet by mouth once daily. - atorvastatin (LIPITOR) 20 mg tablet once daily. - doxycycline 20 mg tablet Take 20 mg by mouth two times a day. - hydroCHLOROthiazide 25 mg tablet Take 25 mg by mouth once daily. - LATANOPROST, PF, OPHTHALMIC Use 1 Drop in both eyes daily at bedtime. Problem List As Of Date: 03/21/2024 (None) Encounter Status:Closed by Lisa RAUSCH on 03/21/24 [facility] 03-21-20[facility] JAYLEN MONTAUGE ([id number]) 1950 M Date Time Provider Department 03/21/24 Lisa RAUSCH [employer] During your visit today, we recorded the following information about you: Jorge Raygoza LPN 03/21/2024 10:04 AM Signed CBC order pending your approval. Jorge Raygoza RN Allergies As of Date: 03/21/2024 (No Known Allergies) Date Reviewed: 02/24/2024 Reviewed by: Coby Rae RN - Fully Assessed Reason for Visit: Orders [681] Primary Visit Diagnosis:Malignant neoplasm of prostate (HCC) [C61] Order(s):COMPLETE BLOOD COUNT AND DIFFERENTIAL [SQCBCDIF] Order #: [id number] FUTURE Prescriptions as of 03/21/2024 - carBAMazepine (TEGRETOL) 200 mg tablet Take 200 mg by mouth two times a day. - Fosinopril Sodium (MONOPRIL) 20 mg tablet Take 1 tablet by mouth once daily. - atorvastatin (LIPITOR) 20 mg tablet once daily. - doxycycline 20 mg tablet Take 20 mg by mouth two times a day. - hydroCHLOROthiazide 25 mg tablet Take 25 mg by mouth once daily. - LATANOPROST, PF, OPHTHALMIC Use 1 Drop in both eyes daily at bedtime. Problem List As Of Date: 03/21/2024 (None) Encounter Status:Closed by JORGE RAYGOZA on 03/21/24 [facility] CNOVon 03-09-2024 CNOV Office Visit (RADTSA) CLARIJAYLEN ([id number]) 1950 M Date Time Provider Department 03/09/24 11:00 AM Lisa RAUSCH During your visit today, we recorded the following information about you: Allergies As of Date: 03/09/2024 (No Known Allergies) Date Reviewed: 02/24/2024 Reviewed by: Coby Rae RN - Fully Assessed Reason for Visit: Simulation Request Form [4065] Primary Visit Diagnosis:Malignant neoplasm of prostate (HCC) [C61] Order(s):RADIATION TREATMENT PER RADIATION ONCOLOGIST PLAN [4155839] Order #: [id number]: 1 CT SIM PLANNING RADIATION ONCOLOGY [2701226] Order #: [id number] PT ED CANCER [9861474] Order #: [id number]: 1 Prescriptions as of 03/14/2024 - carBAMazepine (TEGRETOL) 200 mg tablet Take 200 mg by mouth two times a day. - Fosinopril Sodium (MONOPRIL) 20 mg tablet Take 1 tablet by mouth once daily. - atorvastatin (LIPITOR) 20 mg tablet once daily. - doxycycline 20 mg tablet Take 20 mg by mouth two times a day. - hydroCHLOROthiazide 25 mg tablet Take 25 mg by mouth once daily. - LATANOPROST, PF, OPHTHALMIC Use 1 Drop in both eyes daily at bedtime. Problem List As Of Date: 03/09/2024 (None) Encounter Status:Closed by Lisa RAUSCH on 03/14/24 [facility] CNPAnita 03-08-2024 CNPN Telephone (RADTSA) JAYLEN MONTAGUE ([id number]) 1950 M Date Time Provider Department 03/08/24 Lisa RAUSCH During your visit today, we recorded the following information about you: Dolores Green, ARTURO 03/08/2024 11:58 AM Signed Pt called in to let us know that he tested positive for Covid today. He has a SIM appt today and wanted to let us know as he wasn't sure he was allowed to come in. I did inform him he is able to come in and that we just require him to wear a mask. I also offered the option to postpone simulation for a week. Pt prefers to keep appt and will be seen as scheduled on 03/09. Dolores Green RN Allergies As of Date: 03/08/2024 (No Known Allergies) Date Reviewed: 02/24/2024 Reviewed by: Coby Rae, ARTURO - Fully Assessed Reason for Visit: Covid Positive [4049] Prescriptions as of 03/10/2024 - carBAMazepine (TEGRETOL) 200 mg tablet Take 200 mg by mouth two times a day. - Fosinopril Sodium (MONOPRIL) 20 mg tablet Take 1 tablet by mouth once daily. - atorvastatin (LIPITOR) 20 mg tablet once daily. - doxycycline 20 mg tablet Take 20 mg by mouth two times a day. - hydroCHLOROthiazide 25 mg tablet Take 25 mg by mouth once daily. - LATANOPROST, PF, OPHTHALMIC Use 1 Drop in both eyes daily at bedtime. Problem List As Of Date: 03/08/2024 (None) Encounter Status:Closed by DOLORES GREEN on 03/10/24 [facility] CNOVon 02-24-2024 CNOV Office Visit (RADTSA) JAYLEN MONTAGUE ([id number]) 1950 M Date Time Provider Department 02/24/24 2:00 PM Lisa RAUSCH During your visit today, we recorded the following information about you: Temperature Pulse Respiration Blood pressure 98.1 degrees 63/minute 18/minute 134/82 Weight 120.6 kg Lisa Rausch MD 02/24/2024 2:51 PM Signed Radiation Oncology - Prostate Cancer New Patient/Consult Note PATIENT NAME: Jaylen Montague PATIENT REQUESTING PROVIDER: Dr. Valverde DIAGNOSIS: 73 year old male with prostate adenocarcinoma, initial PSA 12.1, biopsy Vernon score 4 + 3 = 7 (grade group 3), clinical stage T2a, N0, M0, stage IIC [T1-T2, N0, M0, PSA <20, GG 3] (AJCC 8th ed.), s/p TRUS Random and MR Targeted biopsy. HPI: 73 year old male with prostate adenocarcinoma who presents for an opinion regarding the role of radiation therapy in the management of the patient's disease. Final recommendations will be communicated back to the requesting physician by way of the shared medical record, or letter to requesting physician via US mail. The patient was diagnosed with prostate cancer and comes in today to discuss treatment options. Patient presented with an elevated PSA 22 years ago, 6.4. He underwent transrectal ultrasound-guided biopsy May 2022 without obvious findings. He has undergone further surveillance. PSA 04/10/2023 12.3, repeated 12/08/2023 11.56 PSA history: 03/18/2022 6.4 He underwent MRI prostate on 01/20/2024 demonstratin cc gland. No obvious skeletal seminal vesicle or lymph node involvement. Within the prostate and the area of T2 hypointensity involving the posterior right peripheral zone, mid gland, measuring 15 x 10 mm with extracapsular extension described. Prostate biopsy using MRI guidance on February 15, 2024 revealed: Adenocarcinoma, [place] 4+3, left mid, right base lateral, right base medial, right mid medial, right apex lateral, right apex medial. Evidence of extraprostatic extension as well as perineural invasion described Total # of positive biopsy cores: 9 Total # of biopsy cores sampled: 16 Greatest % cancer in any single core: Greater than 50% Staging Studies: MR Results: See HPI PET Scan Results: 02/23/2024:HEAD/NECK: * No PSMA expressing neoplastic process. CHEST: * No PSMA expressing neoplastic process. * Few punctate left pulmonary nodules, below PET resolution and can be followed on subsequent imaging. ABDOMENS/PELVIS: * Intense uptake at the right mid gland posterior peripheral zone, with smaller foci of uptake within the left mid gland posterior peripheral zone and apex, compatible with known malignancy. * No PSMA expressing yi metastases. MUSCULOSKELETAL: * No PSMA expressing neoplastic process. Previous Treatment for Prostate Cancer: None Genomic Testing: None The patient reports the following pertinent history: Urinary frequency (D/N): 4-6/1 Dysuria: No Incontinence: 1- No pads Hematuria: No - Total AUA Score: 5 Bowel Movement Frequency: 1/day Bowel Movement Quality: Normal Blood per Rectum: No Last Colonoscopy: 2014, no polyps at the time, 10-year interval colonoscopy recommended Androgen Deprivation: Yes he was started Lupron Prior Radiation Therapy, Collagen Vascular Disease, or Inflammatory Bowel Disease: No Any implanted or external electric devices? No Currently on Anticoagulation: No History of Hip Replacement: No History of Prior TURP: No ALLERGIES No Known Allergies carBAMazepine (TEGRETOL) 200 mg tablet Take 200 mg by mouth two times a day. Fosinopril Sodium (MONOPRIL) 20 mg tablet Take 1 tablet by mouth once daily. atorvastatin (LIPITOR) 20 mg tablet once daily. doxycycline 20 mg tablet Take 20 mg by mouth two times a day. hydroCHLOROthiazide 25 mg tablet Take 25 mg by mouth once daily. LATANOPROST, PF, OPHTHALMIC Use 1 Drop in both eyes daily at bedtime. No past medical history on file. No past surgical history on file. No family history on file. REVIEW OF SYSTEMS: GENERAL: feeling well without fatigue, no recent change in weight NECK: denies swelling or pain in neck RESPIRATORY: no cough, no wheezing or shortness of breath CARDIOVASCULAR: no chest pain, no palpitations SKIN: no rash NEURO: no numbness or paresthesias and no weakness of the extremities As noted in HPI PHYSICAL EXAM: VS: BP 134/82 Pulse 63 Temp 36.7 ?C (98.1 ?F) Resp 18 Wt 120.6 kg (265 lb 14 oz) SpO2 95% KARNOFSKY PERFORMANCE STATUS: 100 General Appearance: Alert and oriented. No acute distress. HEENT: NCAT. Sclera anicteric. PERRL. EOMI. Neck: Normal ROM. No palpable cervical or supraclavicular adenopathy. Chest: No respiratory distress. Lungs clear to auscultation bilaterally. Heart: Regular rate and rhythm. Abdomen: Soft. Nontender. Nondistended. Musculoskeletal: (more content not included)... Normal [facility] PET/CT PROSTATE WBon 07-0 IA PET/CT PROSTATE WB * * *Final Report* * * DATE OF EXAM: Feb 23 2024 3:31PM NRN 0093 - IA PET/CT PROSTATE WB / PROCEDURE REASON: prostate cancer * * * * Physician Interpretation * * * * RESULT: EXAMINATION: PSMA PET-CT CLINICAL HISTORY: 73 year old man with a history of prostate cancer. TECHNIQUE: Radiopharmaceutical was administered IV followed about 60 minutes later by PET imaging from proximal thighs to skull vertex. Free breathing, low dose CT of the same body region was acquired without IV contrast for attenuation correction and anatomic localization. * CT Dose-Length Product (DLP): 376 mGy*cm * CT Dose Reduction Employed: Yes * Radiopharmaceutical Activity: 8.8 mCi * Radiopharmaceutical: F-18 PSMA (Posluma) * All reported standardized uptake values represent maximum SUV (SUVmax) per body weight, unless otherwise specified. COMPARISON: No previous PSMA PET/CT available CORRELATION: No relevant imaging available RESULT: REFERENCES: SUV reference values: * Background salivary gland activity: SUVmax 18.7 * Blood pool (descending aorta) activity: SUVmax 2.1 * Background liver activity: SUVmax 7.9 Appeals Examiner (topogram) images: No additional findings. Notes and limitations: * Standardized uptake values indicate the highest activity concentration (SUVmax) at a given location but can be variable and are not absolute. * Physiologic/non-path ologic uptake is common in salivary glands, lacrimal glands, neural ganglia, liver, spleen, GI tract, and urinary tract. Certain organ systems can have more intense activity, which could confound or obscure some pathology. * Unenhanced imaging is limited for the evaluation of some pathology and the acquired CT was not designed to produce or replace diagnostic CT quality. * PET-CT is often not sensitive for solid pulmonary nodules less than 8 mm. HEAD AND NECK: Head: No abnormal uptake. Bilateral maxillary sinus mucosal thickening. Neck and Lymph Nodes: No abnormal uptake. Thyroid: No abnormal uptake. CHEST: Lungs and Airways: No abnormal uptake. Few punctate left pulmonary nodules, below PET resolution. Pleura and Pericardium: No abnormal uptake. Cardiovascular: No abnormal uptake. Mediastinum and Lymph Nodes: No abnormal uptake. ABDOMEN AND PELVIS: Hepatobiliary: No abnormal uptake. Cholelithiasis. Spleen: No abnormal uptake. Pancreas: No abnormal uptake. Adrenals: No abnormal uptake. Urinary Tract: No abnormal uptake. GI Tract: No abnormal uptake. No dilated bowel. Colonic diverticulosis. Peritoneum: No abnormal uptake. Vasculature: No abnormal uptake. Mild atherosclerotic calcifications. Lymph Nodes: * Abdomen (including common iliac): No abnormal uptake. * Pelvis (below common iliac): No abnormal uptake. Prostate and Seminal Vesicles: Intense uptake at the right mid gland posterior peripheral zone measures SUV max 18.9, with smaller foci of uptake within the left mid gland posterior peripheral zone (SUV max 3.5) and apex (SUV max 7.0). No abnormal uptake in the bilateral seminal vesicles. Pelvis (other): No abnormal uptake. MUSCULOSKELETAL: Osseous: No abnormal uptake. Degenerative changes, including degenerative/inflamm atory uptake localizing to a prominent L4 vertebral body anterior osteophyte. 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 Soft Tissues: No abnormal uptake. IMPRESSION: HEAD/NECK: * No PSMA expressing neoplastic process. CHEST: * No PSMA expressing neoplastic process. * Few punctate left pulmonary nodules, below PET resolution and can be followed on subsequent imaging. ABDOMENS/PELVIS: * Intense uptake at the right mid gland posterior peripheral zone, with smaller foci of uptake within the left mid gland posterior peripheral zone and apex, compatible with known malignancy. * No PSMA expressing yi metastases. MUSCULOSKELETAL: * No PSMA expressing neoplastic process. Transcribe Date/Time: Feb 23 2024 3:51P Dictated by: PINEDA MARTIN MD This examination was interpreted and the report reviewed and electronically signed by: PINEDA MARTIN MD on Feb 23 2024 4:08PM EST Thank you for allowing us to participate in the care of your patient. Should there be any questions regarding this interpretation, please call [phone]. If you are unable to reach us at the number above, please feel free to contact [facility] at [phone]. [id number] CN [facility] CNPNon 02-18-2024 CNPN Telephone (NCCAP) JAYLEN MONTAGUE ([id number]) 1950 M Date Time Provider Department 02/18/24 Lisa RAUSCH [facility] During your visit today, we recorded the following information about you: Alexia Cai 02/18/2024 7:27 AM Signed This form is used for MAIN CAMPUS APPOINTMENTS ONLY. Is this request for a [facility] [place] PET scan appointment? Yes: Chair Springer: Alexia Aparicio Requesting Person (Last Name, First Name): Dr Valverde Area Code + Phone/Pager: [phone] Who do we call to schedule this appointment? Other Contact: [facility] please route to Juliane gan in [place] Requesting Staff Dr Valverde Area Code + Phone/Pager: [phone] PET Orders (A delay in scheduling will result if the orders are not present at time of review): External. Has the External Clinical Order been scanned into [facility]? Yes ADDITIONAL ACTION MAY BE REQUIRED IF PATIENTS OON INSURANCE OR SELF PAY COVERAGE HAS NOT BEEN CLEARED FOR REQUESTED APPOINTMENT. Scheduling: GEMMA: As soon as insurance will allow What account will this PET appointment be linked to? P/F Type of PET: Oncology: Are there additional diagnostic CT scans required to be done at time of PET scan? No Is the request for a PET MR ? No What account will diagnostic testing appointment be linked to? P/F Will the patient need anesthesia? 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 Primary Insurance: [employer] Diagnosis: Prostate Cancer C61 Initial/Subsequent: Initial Pathology: 01-29-24 OSH Adenocarcinoma 3+4= 7 GS Labs: 10 months ago PSA 12.1 1 year ago PSA 6.49 Clinical Notes Reviewed: 02-10-24 OSH Date of last: na Additional Information/Imaging: na REV 02.08.24 Initial: Yes if yes, please schedule as requested by patient or office. Subsequent: No If yes, Date of Last Image: Positive Scan: or Negative Scan: , Please answer Yes or No. Isotope used: Positive or Negative Scan? (+) = Schedule at Place of last DOS (-) =Schedule at ANY PSMA site Isotope used: 18F / F18: Please schedule in the Region. GA68: Please schedule at . Auth#: [id number] Date Range 02-10-24 to 08-08-24 for 1 dos NPI: Member ID: Online: Case/Ref#: Notes: Called mesha Lawler corrected place of service and removed name Dr Antelmo Hyman as site name, changed to [facility]. PSMA PET 43403/ Locametz (GALLIUM GA-68 GOZETOTIDE) (6 mCi), A9800- Posluma (FLOTUFOLASTAT F18) (8 mCi), U2696-Trefvv Alexia Cai 02/18/2024 1:54 PM Signed Patient is scheduled. Allergies As of Date: 02/18/2024 (Not on File) Date Reviewed: Never Reviewed Reason for Visit: Nm Pet Request [6473] Problem List As Of Date: 02/18/2024 (None) Encounter Status:Closed by ALEXIA CAI on 02/19/24 [facility] Ambulatory Visit Summaryon 0 02-17-2024 Ambulatory Visit Summary JAYLEN MONTAGUE :1950 Visit Date:02/17/2024 Ambulatory Visit Instructions Your Diagnosis Prostate cancer BPH (benign prostatic hyperplasia) Family history of prostate cancer in father Your Care Team Attending Physician - James VALVERDE MD Primary Care Physician - REED FRITZ DO This Is Your Medications List Contact prescribing physician if questions or concerns atorvastatin (atorvastatin 20 mg Tab) carbamazepine fosinopril (fosinopril 20 mg Tab) hydrochlorothiazide (hydrochlorothiazide 25 mg Tab) latanoprost ophthalmic Procedures Performed MRI-US fusion guided transperineal biopsy of prostate (06/11/2022), Colonoscopy, Knee replacement, Tonsillectomy. Discharge Vitals Temperature (Temporal Artery) 37 ?C Heart Rate (Peripheral) 63 Respiratory Rate 16 Blood Pressure 137/76 Height 183 cm Height 72 in Weight 113 kg Weight 248.6 lb BMI 33.74 What to do next Scheduled Follow-Up Appointments Thursday 2:45 PM EST With: James VALVERDE MD Where: [facility] [address] [place] [address]- \.br\ You Need to Schedule the Following Appointments\.br\ Follow Up with James VALVERDE MD, URL When: \.br\ Where:\.br\ [facility] [address]\.br\ [place] [address]-\.br\ Medications\.br\ What How Much When Instructions\.br\ Unchanged atorvastatin (atorvastatin 20 mg Tab) 1 Tablets By Mouth Every day Contact prescribing physician if questions or concerns \.br\ Unchanged carbamazepine Contact prescribing physician if questions or concerns \.br\ Unchanged fosinopril (fosinopril 20 mg Tab) 1 Tablets By Mouth Every day Contact prescribing physician if questions or concerns \.br\ Unchanged hydrochlorothiazide (hydrochlorothiazide 25 mg Tab) 1 Tablets By Mouth Every day Contact prescribing physician if questions or concerns \.br\ Unchanged latanoprost ophthalmic Once a day (in the evening) Contact prescribing physician if questions or concerns \.br\ Medications and Immunizations Administered\.br\ Given\.br\ Eligard 45 mg/6 months subcutaneous injection, extended release, 45 mg, SubCutaneous. For: Prostate cancer\.br\ Allergies\.br\ No Known Medication Allergies\.br\ Problems\.br\ Ongoing - Any problem that you are currently receiving treatment for.\.br\ BPH (benign prostatic hyperplasia)\.br\ Elevated PSA\.br\ Family history of prostate cancer in father\.br\ Fecal incontinence\.br\ Headache\.br\ High cholesterol\.br\ Hypertension\.br\ Prostate cancer\.br\ Prostatitis\.br\ Seizures\.br\ Patient Survey\.br\ You may receive a survey via text or e-mail asking about your office visit. Please share your experience with us by completing your survey. We appreciate your feedback and thank you for choosing us for your care.\.br\ Education Materials\.br\ Hormone Suppression Therapy for Prostate Cancer\.br\ \.br\ Hormone suppression therapy is a treatment for prostate cancer that can help slow the growth of cancer cells in the prostate gland. It is also called androgen deprivation therapy (ADT) or androgen suppression therapy. Hormone suppression therapy targets male sex hormones (androgens) in the body that help cancer cells grow.\.br\ Hormone suppression therapy alone will not cure prostate cancer, but it can slow the growth of cancer cells and may shrink tumors over time. Your health care provider can help you find the best treatment that fits your lifestyle. Hormone suppression therapy may be used in the following cases:\.br\ ? \.br\ When prostate cancer has spread too far to other places in the body and cannot be cured by surgery or radiation.\.br\ ? \.br\ When a person has health problems that prevent the use of surgery or radiation.\.br\ ? \.br\ Before radiation to help shrink the size of the cancer and make the radiation treatment more effective.\.br\ ? \.br\ If the prostate cancer remains or comes back following treatment with surgery or radiation.\.br\ What are the types of hormone suppression therapy?\.br\ Orchiectomy\.br\ Orchiectomy, also called surgical castration, is a surgery to remove one or both testicles. The testicles make the two main androgens?testostero ne and dihydrotestosterone (DHT). This surgery reduces the levels of testosterone in the blood, leading to decreased androgen production.\.br\ Medicine therapy\.br\ Medicine therapy, also called medical or chemical castration, involves taking medicines to keep your body from making or using androgens. Medicines can do this in one of three ways:\.br\ 1. \.br\ Reducing androgen production by the testicles.\.br\ ? \.br\ Luteinizing hormone-releasing hormone (LHRH) agonists. These medicines are injected or implanted under your skin to lower the amount of androgens that your testicles make. Depending on the medicine, they can be given monthly or up to every 3 to 6 months. If you take these medicines, you may also be prescribed other medicines to help with side effects.\.br\ ? \.br\ LHRH antagonists. These medicines also work to lower the amount of androgens made in the testicles, but they work faster than LHRH agonist medicines and have less severe side effects. They are given as a monthly injection under the skin, and they are used when prostate cancer is in an advanced stage.\.br\ ? \.br\ Estrogens. These medicines are female hormones that help to reduce androgen production by the testicles. Estrogens are not used as commonly as other types of hormone suppression therapy due to their side effects. However, they may be used if other treatments do not work.\.br\ 2. \.br\ Blocking androgen attachment throughout the body.\.br\ ? \.br\ Anti-androgen medicines, also called androgen receptor antagonists, block areas on the body where androgens attach. These are pills that are usually used in combination with other types of hormone suppression therapy, like orchiectomy and other medicines.\.br\ 3. \.br\ Blocking androgen production throughout the body.\.br\ ? \.br\ Androgen synthesis inhibitor medicines. These medicines help to stop other areas of the body from making androgens. They are taken as pills. They may be used if the prostate cancer is advanced and has not gotten better with surgery or other medicines. A steroid medicine may be given with this type of medicine to help with side effects.\.br\ What are the risks?\.br\ Hormone suppression therapy may cause side effects, including:\.br\ ? \.br\ Hot flashes.\.br\ ? \.br\ Diarrhea and nausea.\.br\ ? \.br\ Itching.\.br\ ? \.br\ Sexual side effects, such as:\.br\ ? \.br\ Decrease or lack of sexual desire.\.br\ ? \.br\ Decrease in size of the penis or testicles.\.br\ ? \.br\ Inability to get an erection (erectile dysfunction, or impotence).\.br\ ? \.br\ Breast tenderness or increase in breast size.\.br\ ? \.br\ Fatigue.\.br\ ? \.br\ Weight gain.\.br\ ? \.br\ Anemia.\.br\ ? \.br\ Thinning of the bones (osteoporosis) and loss of muscle mass.\.br\ ? \.br\ Depression, mood swings, and trouble with thinking or focusing.\.br\ Hormone suppression therapy may also increase your risk of high blood pressure, increased cholesterol levels, stroke, heart attack, or diabetes.\.br\ What are the benefits?\.br\ One of the main benefits of hormone suppression therapy is having additional treatment options. You may have only one type of treatment, or two or more types at the same time. Treatments may be combined to:\.br\ ? \.br\ Help with side effects.\.br\ ? \.br\ Treat advanced cancer.\.br\ Where to find more information\.br\ ? \.br\ [place] [employer] Society: www.cancer.org\.br\ ? \.br\ National Cancer [place]: www.cancer.gov\.br\ Contact a health care provider if:\.br\ ? \.br\ You have pain or side effects that do not get better with treatment.\.br\ ? \.br\ You have trouble urinating.\.br\ ? \.br\ You have new side effects that do not go away.\.br\ Get help right away if:\.br\ ? \.br\ You have severe chest pain.\.br\ ? \.br\ You have trouble breathing.\.br\ ? \.br\ You have an irregular heartbeat.\.br\ ? \.br\ You have numbness or paralysis in the lower half of your body.\.br\ ? \.br\ You are confused.\.br\ ? \.br\ You have trouble talking or understanding speech.\.br\ These symptoms may be an emergency. Do not wait to see if the symptoms will go away. Get medical help right away. Call your local emergency services (911 in the [place] Do not drive yourself to the hospital.\.br\ Summary\.br\ [facility] Patient Educationon 02-17-20 Patient Education Oncology Hormone Suppression Therapy for Prostate Cancer Hormone suppression therapy is a treatment for prostate cancer that can help slow the growth of cancer cells in the prostate gland. It is also called androgen deprivation therapy (ADT) or androgen suppression therapy. Hormone suppression therapy targets male sex hormones (androgens) in the body that help cancer cells grow. Hormone suppression therapy alone will not cure prostate cancer, but it can slow the growth of cancer cells and may shrink tumors over time. Your health care provider can help you find the best treatment that fits your lifestyle. Hormone suppression therapy may be used in the following cases: ? When prostate cancer has spread too far to other places in the body and cannot be cured by surgery or radiation. ? When a person has health problems that prevent the use of surgery or radiation. ? Before radiation to help shrink the size of the cancer and make the radiation treatment more effective. ? If the prostate cancer remains or comes back following treatment with surgery or radiation. What are the types of hormone suppression therapy? Orchiectomy Orchiectomy, also called surgical castration, is a surgery to remove one or both testicles. The testicles make the two main androgens?testostero ne and dihydrotestosterone (DHT). This surgery reduces the levels of testosterone in the blood, leading to decreased androgen production. Medicine therapy Medicine therapy, also called medical or chemical castration, involves taking medicines to keep your body from making or using androgens. Medicines can do this in one of three ways: 1. Reducing androgen production by the testicles. ? Luteinizing hormone-releasing hormone (LHRH) agonists. These medicines are injected or implanted under your skin to lower the amount of androgens that your testicles make. Depending on the medicine, they can be given monthly or up to every 3 to 6 months. If you take these medicines, you may also be prescribed other medicines to help with side effects. ? LHRH antagonists. These medicines also work to lower the amount of androgens made in the testicles, but they work faster than LHRH agonist medicines and have less severe side effects. They are given as a monthly injection under the skin, and they are used when prostate cancer is in an advanced stage. ? Estrogens. These medicines are female hormones that help to reduce androgen production by the testicles. Estrogens are not used as commonly as other types of hormone suppression therapy due to their side effects. However, they may be used if other treatments do not work. 2. Blocking androgen attachment throughout the body. ? Anti-androgen medicines, also called androgen receptor antagonists, block areas on the body where androgens attach. These are pills that are usually used in combination with other types of hormone suppression therapy, like orchiectomy and other medicines. 3. Blocking androgen production throughout the body. ? Androgen synthesis inhibitor medicines. These medicines help to stop other areas of the body from making androgens. They are taken as pills. They may be used if the prostate cancer is advanced and has not gotten better with surgery or other medicines. A steroid medicine may be given with this type of medicine to help with side effects. What are the risks? Hormone suppression therapy may cause side effects, including: ? Hot flashes. ? Diarrhea and nausea. ? Itching. ? Sexual side effects, such as: ? Decrease or lack of sexual desire. ? Decrease in size of the penis or testicles. ? Inability to get an erection (erectile dysfunction, or impotence). ? Breast tenderness or increase in breast size. ? Fatigue. ? Weight gain. ? Anemia. ? Thinning of the bones (osteoporosis) and loss of muscle mass. ? Depression, mood swings, and trouble with thinking or focusing. Hormone suppression therapy may also increase your risk of high blood pressure, increased cholesterol levels, stroke, heart attack, or diabetes. What are the benefits? One of the main benefits of hormone suppression therapy is having additional treatment options. You may have only one type of treatment, or two or more types at the same time. Treatments may be combined to: ? Help with side effects. ? Treat advanced cancer. Where to find more information ? [place] [employer]: www.cancer.org ? National Cancer [place]: www.cancer.gov Contact a health care provider if: ? You have pain or side effects that do not get better with treatment. ? You have trouble urinating. ? You have new side effects that do not go away. Get help right away if: ? You have severe chest pain. ? You have trouble breathing. ? You have an irregular heartbeat. ? You have numbness or paralysis in the lower half of your body. ? You are confused. ? You have trouble talking or understanding speech. These symptoms may be an emergenc (more content not included)... [facility] Urology Office/Clinic Noteon 02-17-2024 Urology Office/Clinic Note Chief Complaint prostate cancer HPI Staff Pt is here for 1st Eligard injection. Dx: prostate cancer, BPH and family hx of prostate cancer (father) PSA: 03/19/22 - 6.49 04/10/23 - 12.3 12/08/23 - 11.56 S/p MRI fusion TRUS bx 01/29/24 - Op note: 6 biopsies taken from [facility]. 6 biopsies were taken from L side base to apex. 6 biopsies were taken from R side base to apex. Total of 18 biopsies from 13 regions. Pathology: 9/16 cores, GG3, GS7 (4+3). PNI identified. EPE identified. All biopsies taken from [facility] are positive. No urinary complaints at this time. History of Present Illness Tests reviewed: reviewed UA I have reviewed the previous health record information and history for this patient from Dr. Valverde. I have reviewed and verified the staff HPI to be accurate for this encounter. There have been no associated fever, chills, flank pain, or blood in the urine. Denies any urinary infections since last encounter. Review of Systems PHQ Score Initial Depression Screen Score: 0 SCORE ROS - Provider Constitutional: denies weight loss, denies hot flashes. Eyes: denies eye problems. Gastrointestinal: denies nausea, denies vomiting. Cardiovascular: denies chest pain or angina. Integumentary: no dryness Musculoskeletal: denies musculoskeletal symptoms. ENMT: denies otolaryngeal symptoms. Respiratory: no shortness of breath. Heme/Lymph: denies easy bleeding tendency, denies easy bruising tendency. Psychiatric: no confusion, no anxiety. Genitourinary: See HPI. Physical Exam Vitals & Measurements T: 37 ?C(Temporal Artery) HR: 63(Peripheral) RR: 16 BP: 137/76 HT: 72 in HT: 183 cm WT: 113 kg WT: 248.6 lb BMI: 33.74 General Appearance: alert, no distress, well nourished, well developed male. Genitourinary: normal scrotum, normal testes, normal urethra, normal epididymis, normal vas deferens/spermatic cord. Flank Pain: none. Bladder: nonpalpable. Assessment/Plan 1. Prostate cancer (C61: Malignant neoplasm of prostate) PSA: 03/19/22 - 6.49 04/10/23 - 12.3 12/08/23 - 11.56 MRI prostate 05/13/22 [facility] [place] PI-RADS 4, posterior aspect of the R peripheral zone at the mid gland measuring 11 x 7 mm. No evidence of gross extraprostatic extension. Prostate volume 40 cc. S/p MRI prostate fusion bx 06/11/22 - All benign. FAY 12/23/23 35 g, no nodules. [1] MRI of prostate 01/20/24 - Previously id'd focal area involving the posterior aspect of the R peripheral zone at the level of the mid gland appears to have increased in size now measuring 15 x 10 mm, once measuring 11 x 7 mm. PI-RADS 5. There appears to be extracapsular extension present. Prostate volume 35 cc. S/p MRI fusion TRUS bx 01/29/24 - Op note: 6 biopsies taken from [facility]. 6 biopsies were taken from L side base to apex. 6 biopsies were taken from R side base to apex. Total of 18 biopsies from 13 regions. Pathology: 05/09 cores, GG3, GS7 (4+3). PNI identified. EPE identified. All biopsies taken from [facility]I are positive. PSMA PET was approved but pt is still waiting for a call to schedule it. Has appt with Dr. Rausch next Thu02/24/24. Discussed pt is expected to respond well to Eligard injections. First Eligard 45 mgIM injection given today with no complications. Left glute. Pt. denies side effects at this time. Follow up 6 mos Eligard, PSA or sooner if needed. Pt understands and agrees with plan. 2. BPH (benign prostatic hyperplasia) (N40.0: Benign prostatic hyperplasia without lower urinary tract symptoms) UA today negative for blood and infection. Not taking any BPH meds. IPSS not completed (7). 3. Family history of prostate cancer in father (Z80.42: Family history of malignant neoplasm of prostate) Follow-up With When Contact Information NICOLLE ALBERTS, James Valente, URL [facility] [address], [place] [address]- Additional Instructions: 6 mos Eligard, PSA Patient Education Hormone Suppression Therapy for Prostate Cancer I, Stephie Ontiveros, personally scribed for Dr. Valverde on 02/17/2024 15:39:04. . Documentation recorded by the scribe, Stephie Ontiveros, accurately reflects the services(s) I performed and decisions made by me. Authenticated by Dr. Valverde on 02/17/2024 15:42:38. Problem List/Past Medical History Ongoing BPH (benign prostatic hyperplasia) Elevated PSA Family history of prostate cancer in father Fecal incontinence Headache High cholesterol Hypertension Prostate cancer Prostatitis Seizures Historical No qualifying data Procedure/Surgical History MRI-US fusion guided transperineal biopsy of prostate (06/11/2022), Colonoscopy, Knee replacement, Tonsillectomy. Medications atorvastatin 20 mg Tab, 20 mg= 1 tab(s), Oral, Daily carbamazepine fosinopril 20 mg Tab, 20 mg= 1 tab(s), Oral, Daily hydrochlorothiazide 25 mg Tab, 25 mg= 1 tab(s), Oral, Daily latanoprost ophthalmic, qPM Allergies No Known Medication Allergies Social History (more content not included)... [facility] Comment on above: Result Comment: Elec tronically Signed By: NICOLLE ALBERTS, James Valente\.br\Date and Time Signed: 02/17/24 15:42 EDT\.br\Electronically Co-Signed By: Stephie Ontiveros\.br\Date and Time Co-Signed: 02/17/24 15:39 EDT Insurance Correspondenceon 0 02-11-2024 Insurance Correspondence [id number] 5#1.00TIFF [facility] Insurance Correspondence [id number] #1.00TIFF [facility] Physician Orderon 02-11-2024 Physician Order [id number] #1.00TIFF [facility] Screenson 02-11-2024 Screens [id number] 9#1.00TIFF [facility] Ambulatory Visit Summaryon 0 02-10-2024 Ambulatory Visit Summary JAYLEN MONTAGUE :1950 Visit Date:02/10/2024 Ambulatory Visit Instructions Your Diagnosis Prostate cancer BPH (benign prostatic hyperplasia) Family history of prostate cancer in father Your Care Team Attending Physician - James VALVERDE MD Primary Care Physician - REED FRITZ DO This Is Your Medications List Contact prescribing physician if questions or concerns atorvastatin (atorvastatin 20 mg Tab) carbamazepine fosinopril (fosinopril 20 mg Tab) hydrochlorothiazide (hydrochlorothiazide 25 mg Tab) latanoprost ophthalmic Procedures Performed MRI-US fusion guided transperineal biopsy of prostate (06/11/2022), Colonoscopy, Knee replacement, Tonsillectomy. Discharge Vitals Heart Rate (Peripheral) 62 Respiratory Rate 16 Blood Pressure 134/70 Height 183 cm Height 72 in Weight 113 kg Weight 248.6 lb BMI 33.74 What to do next Scheduled Follow-Up Appointments Thursday. 2024 1:15 PM EDT With: NICOLLE ALBERTS, James Valente Where: [facility] Insurance Correspondenceon 0 02-10-2024 Insurance Correspondence [id number] #1.00TIFF [facility] Patient Educationon 02-10-20 24 Patient Education Oncology Hormone Suppression Therapy for Prostate Cancer Hormone suppression therapy is a treatment for prostate cancer that can help slow the growth of cancer cells in the prostate gland. It is also called androgen deprivation therapy (ADT) or androgen suppression therapy. Hormone suppression therapy targets male sex hormones (androgens) in the body that help cancer cells grow. Hormone suppression therapy alone will not cure prostate cancer, but it can slow the growth of cancer cells and may shrink tumors over time. Your health care provider can help you find the best treatment that fits your lifestyle. Hormone suppression therapy may be used in the following cases: ? When prostate cancer has spread too far to other places in the body and cannot be cured by surgery or radiation. ? When a person has health problems that prevent the use of surgery or radiation. ? Before radiation to help shrink the size of the cancer and make the radiation treatment more effective. ? If the prostate cancer remains or comes back following treatment with surgery or radiation. What are the types of hormone suppression therapy? Orchiectomy Orchiectomy, also called surgical castration, is a surgery to remove one or both testicles. The testicles make the two main androgens?testostero ne and dihydrotestosterone (DHT). This surgery reduces the levels of testosterone in the blood, leading to decreased androgen production. Medicine therapy Medicine therapy, also called medical or chemical castration, involves taking medicines to keep your body from making or using androgens. Medicines can do this in one of three ways: 1. Reducing androgen production by the testicles. ? Luteinizing hormone-releasing hormone (LHRH) agonists. These medicines are injected or implanted under your skin to lower the amount of androgens that your testicles make. Depending on the medicine, they can be given monthly or up to every 3 to 6 months. If you take these medicines, you may also be prescribed other medicines to help with side effects. ? LHRH antagonists. These medicines also work to lower the amount of androgens made in the testicles, but they work faster than LHRH agonist medicines and have less severe side effects. They are given as a monthly injection under the skin, and they are used when prostate cancer is in an advanced stage. ? Estrogens. These medicines are female hormones that help to reduce androgen production by the testicles. Estrogens are not used as commonly as other types of hormone suppression therapy due to their side effects. However, they may be used if other treatments do not work. 2. Blocking androgen attachment throughout the body. ? Anti-androgen medicines, also called androgen receptor antagonists, block areas on the body where androgens attach. These are pills that are usually used in combination with other types of hormone suppression therapy, like orchiectomy and other medicines. 3. Blocking androgen production throughout the body. ? Androgen synthesis inhibitor medicines. These medicines help to stop other areas of the body from making androgens. They are taken as pills. They may be used if the prostate cancer is advanced and has not gotten better with surgery or other medicines. A steroid medicine may be given with this type of medicine to help with side effects. What are the risks? Hormone suppression therapy may cause side effects, including: ? Hot flashes. ? Diarrhea and nausea. ? Itching. ? Sexual side effects, such as: ? Decrease or lack of sexual desire. ? Decrease in size of the penis or testicles. ? Inability to get an erection (erectile dysfunction, or impotence). ? Breast tenderness or increase in breast size. ? Fatigue. ? Weight gain. ? Anemia. ? Thinning of the bones (osteoporosis) and loss of muscle mass. ? Depression, mood swings, and trouble with thinking or focusing. Hormone suppression therapy may also increase your risk of high blood pressure, increased cholesterol levels, stroke, heart attack, or diabetes. What are the benefits? One of the main benefits of hormone suppression therapy is having additional treatment options. You may have only one type of treatment, or two or more types at the same time. Treatments may be combined to: ? Help with side effects. ? Treat advanced cancer. Where to find more information ? [place] [employer]: www.cancer.org ? National Cancer [place]: www.cancer.gov Contact a health care provider if: ? You have pain or side effects that do not get better with treatment. ? You have trouble urinating. ? You have new side effects that do not go away. Get help right away if: ? You have severe chest pain. ? You have trouble breathing. ? You have an irregular heartbeat. ? You have numbness or paralysis in the lower half of your body. ? You are confused. ? You have trouble talking or understanding speech. These symptoms may be an emergenc (more content not included)... Normal [facility] Urology Office/Clinic Noteon 02-10-2024 Urology Office/Clinic Note Chief Complaint Follow up to MRI fusion bx HPI Staff F/u to fusion bx. MRI of prostate 01/20/24. Previous DX: BPH, elevated PSA, family history of prostate cancer. S/P MRI fusion biopsy 06/11/22. S/p MRI fusion TRUS bx 01/29/24 - 05/09 cores, GG3, GS7 (4+3). Dysuria: denies pain or burning Incomplete bladder emptying: denies Hematuria: denies visible blood Frequency: denies Urgency: denies Nocturia: denies Stream: denies hesitancy, denies weak stream Leaking: denies Post void dripping: denies Wearing pads/ Depends: denies Urge incontinence: denies Stress incontinence: denies Incontinence without Sensory Awareness: denies Abdominal pain: denies Flank pain: denies Sexual complaints: denies History of Present Illness Tests reviewed: reviewed UA I have reviewed the previous health record information and history for this patient from Dr. Valverde. I have reviewed and verified the staff HPI to be accurate for this encounter. There have been no associated fever, chills, flank pain, or blood in the urine. Denies any urinary infections since last encounter. Review of Systems PHQ Score Initial Depression Screen Score: 0 SCORE ROS - Provider Constitutional: denies weight loss, denies hot flashes. Eyes: denies eye problems. Gastrointestinal: denies nausea, denies vomiting. Cardiovascular: denies chest pain or angina. Integumentary: no dryness Musculoskeletal: denies musculoskeletal symptoms. ENMT: denies otolaryngeal symptoms. Respiratory: no shortness of breath. Heme/Lymph: denies easy bleeding tendency, denies easy bruising tendency. Psychiatric: no confusion, no anxiety. Genitourinary: See HPI. Physical Exam Vitals & Measurements HR: 62(Peripheral) RR: 16 BP: 134/70 HT: 72 in HT: 183 cm WT: 113 kg WT: 248.6 lb BMI: 33.74 General Appearance: alert, no distress, well nourished, well developed male. Genitourinary: normal scrotum, normal testes, normal urethra, normal epididymis, normal vas deferens/spermatic cord. Flank Pain: none. Bladder: nonpalpable. Assessment/Plan Pt accompanied by an adult female today. 1. Prostate cancer (C61: Malignant neoplasm of prostate) PSA: 03/19/22 - 6.49 04/10/23 - 12.3 12/08/23 - 11.56 MRI prostate 05/13/22 [facility] [place] PI-RADS 4, posterior aspect of the R peripheral zone at the mid gland measuring 11 x 7 mm. No evidence of gross extraprostatic extension. Prostate volume 40 cc. S/p MRI prostate fusion bx 06/11/22 - All benign. FAY 12/23/23 35 g, no nodules. [1] MRI of prostate 01/20/24 - Previously id'd focal area involving the posterior aspect of the R peripheral zone at the level of the mid gland appears to have increased in size now measuring 15 x 10 mm, once measuring 11 x 7 mm. PI-RADS 5. There appears to be extracapsular extension present. Prostate volume 35 cc. S/p MRI fusion TRUS bx 01/29/24 - Op note: 6 biopsies taken from [facility]. 6 biopsies were taken from L side base to apex. 6 biopsies were taken from R side base to apex. Total of 18 biopsies from 13 regions. Pathology: 9/16 cores, GG3, GS7 (4+3). PNI identified. EPE identified. All biopsies taken from ERMI are positive. The pathology report, which shows the presence of prostate cancer, was disclosed to the patient in detail today. Explained Vernon scoring system. Though pt has mid-grade ca, he does have significant volume of ca present given all cores from REMI were positive, this does warrant tx. Given pt's advanced age, surgery is not recommended. Stressed the significance of this pathology, if ca is not treated, it will be fatal. Therefore, I discussed the radiation therapy options including a combination of prostate brachytherapy, EBRT, and ADT was also discussed. I went over the pros and cons of each therapy today. Discussed proceeding with PSMA PET scan for staging. [employer] prostate cancer book was provided. Follow up after below or sooner if needed. Pt understands and agrees with plan. -Schedule PSMA PET scan. -Refer to rad onc. 2. BPH (benign prostatic hyperplasia) (N40.0: Benign prostatic hyperplasia without lower urinary tract symptoms) No sample provided for UA today. Not taking any BPH meds. IPSS 7 (7). 3. Family history of prostate cancer in father (Z80.42: Family history of malignant neoplasm of prostate) Follow-up With When Contact Information NICOLLE ALBERTS, James Valente, URL [facility] [address] [place] [address]- Additional Instructions: schedule PSMA PET scan, f/u after scan and referral Patient Education Hormone Suppression Therapy for Prostate Cancer Brachytherapy for Prostate Cancer Prostate Cancer Stephie Allison, personally scribed for Dr. Valverde on 02/10/2024 11:36:37. . Documentation recorded by the scribe, Stephie Ontiveros, accurately reflects the services(s) I performed and decisions made by me. Authenticated by Dr. Valverde on 02/10/2024 11:45:17. Problem List/Past Medical Histo (more content not included)... Normal [facility] Comment on above: Result Comment: Elec tronically Signed By: NICOLLE ALBERTS, James Valente\natalia\Date and Time Signed: 02/10/24 11:45 EDT\.br\Electronically Co-Signed By: Stephie Ontiveros\.br\Date and Time Co-Signed: 02/10/24 11:37 EDT Pathology Noteon 02-04-2024 Pathology Note [id number]# 1.00TIFF Normal [facility] Operative Reporton Operative Report [id number] #1.00TIFF Normal [facility] [place] 01-29-2024 L Specimen: [id number] Received: 01/29/24 Status: YUDI Patiño Num: [id number] Spec Type: Surgical Subm Dr: James Valverde MD Tissues: A Prostate - Needle Biopsy (LT BASE LATERAL) B Prostate - Needle Biopsy (LT BASE MEDIAL) C Prostate - Needle Biopsy (LT MID LATERAL) D Prostate - Needle Biopsy (LT MID MEDIAL) E Prostate - Needle Biopsy (LT APEX LATERAL) F Prostate - Needle Biopsy (LT APEX MEDIAL) G Prostate - Needle Biopsy (RT BASE LATERAL) H Prostate - Needle Biopsy (RT BASE MEDIAL) I Prostate - Needle Biopsy (RT MID LATERAL) J Prostate - Needle Biopsy (RT MID MEDIAL) K Prostate - Needle Biopsy (RT APEX LATERAL) L Prostate - Needle Biopsy (RT APEX MEDIAL) M Prostate - Needle Biopsy (REMI #1) Procedures: HE/26, Gross/Micro L4/13, PIN Cocktail/4 Age/ Patient Sex Location Account Attending Physician Jaylen Montague 73/M [place] [id number] James Valverde MD SPEC NUM: [id number] RECD: 01/29/24 STATUS: YUDI PATIÑO NUM: [id number] [place]ED[place]: 01/29/24- SUBM DR: James Valverde MD ENTERED: 01/29/[address] [facility] [address]: SPEC TYPE: Surgical DEPT: S ORDERED: HE/26, Gross/Micro L4/13, PIN Cocktail/4 ORDERED: HE/26, Gross/Micro L4/13, PIN Cocktail/4, USS/22 Pathological Diagnosis Prostate Case Summary Result Summary Cores Involved Vernon Group Vernon Score Perineural Invasion (PNI) Extraprostatic Extension (EPE) Malignant 9 of 16 Group 3 4+3 identified identified Positive Core Summary Vernon Group Number of Cores Specimen: [id number] Received: 01/29/24 Status: YUDI Patiño Num: [id number] Spec Type: Surgical Subm Dr: James Valverde MD Tissues: A Prostate - Needle Biopsy (LT BASE LATERAL) B Prostate - Needle Biopsy (LT BASE MEDIAL) C Prostate - Needle Biopsy (LT MID LATERAL) D Prostate - Needle Biopsy (LT MID MEDIAL) E Prostate - Needle Biopsy (LT APEX LATERAL) F Prostate - Needle Biopsy (LT APEX MEDIAL) G Prostate - Needle Biopsy (RT BASE LATERAL) H Prostate - Needle Biopsy (RT BASE MEDIAL) I Prostate - Needle Biopsy (RT MID LATERAL) J Prostate - Needle Biopsy (RT MID MEDIAL) K Prostate - Needle Biopsy (RT APEX LATERAL) L Prostate - Needle Biopsy (RT APEX MEDIAL) M Prostate - Needle Biopsy (REMI #1) Procedures: HE/26, Gross/Micro L4/13, PIN Cocktail/4 Patient: Jaylen Montague [id number] (Continued) Specimen: [id number] Received: 01/29/24 (Continued) Pathological Diagnosis (Continued) Signed (signature on file) Rui Marte MD 02/03/241929 Specimen: [id number] Received: 01/29/24 Status: YUDI Patiño Num: [id number] Spec Type: Surgical Subm Dr: James Valverde MD Tissues: A Prostate - Needle Biopsy (LT BASE LATERAL) B Prostate - Needle Biopsy (LT BASE MEDIAL) C Prostate - Needle Biopsy (LT MID LATERAL) D Prostate - Needle Biopsy (LT MID MEDIAL) E Prostate - Needle Biopsy (LT APEX LATERAL) F Prostate - Needle Biopsy (LT APEX MEDIAL) G Prostate - Needle Biopsy (RT BASE LATERAL) H Prostate - Needle Biopsy (RT BASE MEDIAL) I Prostate - Needle Biopsy (RT MID LATERAL) J Prostate - Needle Biopsy (RT MID MEDIAL) K Prostate - Needle Biopsy (RT APEX LATERAL) L Prostate - Needle Biopsy (RT APEX MEDIAL) M Prostate - Needle Biopsy (REMI #1) Procedures: /, Gross/Micro L4/13, PIN Cocktail/4 Patient: Jaylen Montague [id number] (Continued) Specimen: [id number] Received: 01/29/24 (Continued) Pathological Diagnosis (Continued) I 0 of 16 II 5 of 16 III 4 of 16 IV 0 of 16 V 0 of 16 0 of 16 A, prostate biopsy, left base lateral -Benign prostate tissue with focal mild chronic atrophic change with associated glandular dilatation B, prostate biopsy, left base medial -Benign prostatic tissue with mild nodular glandular hyperplasia, and minute foci of low-grade PIN -PIN cocktail immunostain with appropriate control also show findings supporting the above interpretation C, prostate biopsy, left mid lateral -Benign prostate tissue with focal nodular glandular hyperplasia D, prostate biopsy, left mid medial Specimen: [id number] Received: 01/29/24 Status: YUDI Herreramilka Num: [id number] Spec Type: Surgical Subm Dr: James Valverde MD Tissues: A Prostate - Needle Biopsy (LT BASE (more content not included)... Normal [facility] Lab Reportson 01-26-2024 Lab Reports [id number]# 1.00TIFF Normal [facility] Lab Reports [id number]# 1.00TIFF Normal [facility] RAD - MISCon 01-26-2024 RAD - MISC [id number] #1.00TIFF Normal [facility] Activated partial thrombopla stin time (aPTT) in platelet poor plasma by coagulation aOrdered By: James Valverde on 01-25-2024 aPTT Coag (PPP) [Time] 28.7 s 25.1-36.5 [facility] Comment on above: A hematocrit value g reater than 55% may lead to inaccurate results in coagulation testing. Patients having hematocrit values >55% require a special collection tube for coagulation studies. Please contact the laboratory at [phone] for redraw instructions. Automated basophil %Ordered By: James Valverde on 01-25-2024 Basophils/100 WBC (Bld) 0.5 % Normal . [facility] Comment on above: Performed By: #### C BC, BMP, PTT, PT #### [facility] [address] [place] [address] Automated basophil countOrde red By: James Valverde on 01-25-2024 Basophils (Bld) [#/Vol] 0.0 10*3/uL Normal 0.0-0.2 [facility] Comment on above: Result Comment: PERF ORMED BY: [place] [address] PATHOLOGIST SCREEN EXAMINER IHSAN ZARAGOZA M.D. Performed By: #### C BC, BMP, PTT, PT #### [address] Automated blood monocyte cou ntOrdered By: James Valverde on 01-25-2024 Monocytes (Bld) [#/Vol] 0.4 10*3/uL Normal 0.0-0.8 [facility] Comment on above: Performed By: #### C BC, BMP, PTT, PT #### [facility] [address] [place] [address] Automated eosinophil %Ordere d By: James Valverde on 01-25-2024 Eosinophils/100 WBC (Bld) 3.6 % Normal . [facility] Comment on above: Performed By: #### C BC, BMP, PTT, PT #### [facility] [address] [place] [address] Automated eosinophil countOr dered By: James Valverde on 01-25-2024 Eosinophils (Bld) [#/Vol] 0.2 10*3/uL Normal 0.0-0.45 [facility] Comment on above: Performed By: #### C BC, BMP, PTT, PT #### [address] Automated monocyte %Ordered By: James Valverde on 01-25-2024 Monocytes/100 WBC (Bld) 9.1 % Normal . [facility] Comment on above: Performed By: #### C BC, BMP, PTT, PT #### [address] Automated neutrophil %Ordere d By: James Valverde on 01-25-2024 Neutrophils/100 WBC (Bld) 57.7 % Normal . [facility] Comment on above: Performed By: #### C BC, BMP, PTT, PT #### [address] Basic Metabolic Panelon 06 GFR/1.73 sq M.predicted MDRD (S/P/Bld) [Vol rate/Area] mL/min/{1.73_m2} Normal [facility] Comment on above: Performed By: #### C BC, BMP, PTT, PT #### [address] Calcium [Mass/volume] in Ser um or PlasmaOrdered By: James Valverde on 01-25-2024 Calcium [Mass/Vol] 9.0 mg/dL Normal 8.6-10.3 [facility] Comment on above: Result Comment: PERF ORMED BY: [place] [address] PATHOLOGIST SCREEN EXAMINER IHSAN ZARAGOZA M.D. Performed By: #### C BC, BMP, PTT, PT #### [address] Carbon dioxide, total [Moles /volume] in Serum or PlasmaOrdered By: James Valverde on 01-25-2024 CO2 [Moles/Vol] 27.4 mmol/L Normal 21.0-31.0 [facility] Comment on above: Performed By: #### C BC, BMP, PTT, PT #### [facility] [address] [place] [address] Chloride [Moles/volume] in S davon or PlasmaOrdered By: James Valverde on 01-25-2024 Chloride [Moles/Vol] 103 mmol/L Normal 98-107 [facility] Comment on above: Performed By: #### C BC, BMP, PTT, PT #### [facility] [address] [place] [address] Complete Blood Count Auto Di ffon 01-25-2024 Mean Corpuscular HGB Conc 34.0 g/dL Normal 32.5-35.6 [facility] Comment on above: Performed By: #### C BC, BMP, PTT, PT #### [address] NRBC% 0.1 /100{WBC} Normal 0-0.5 [facility] Comment on above: Performed By: #### C BC, BMP, PTT, PT #### [facility] [address] [place] [address] Creatinine [Mass/volume] in Serum or PlasmaOrdered By: James Valverde on 01-25-2024 Creatinine [Mass/Vol] 0.85 mg/dL Normal 0.70-1.30 [facility] Comment on above: Performed By: #### C BC, BMP, PTT, PT #### [facility] [address] [place] [address] ECG 12 lead ECGon 01-25-2024 ECG 12 lead ECG [facility] [place] [address] Electrocardiograph Report Signed Patient: Jaylen Montague MR#: [id number] : 1950 Acct:[id number] Age/Sex: 73 / M ADM Date: 01/25/24 Loc: Room: Type: [facility] Attending Dr: James Valverde MD Ordering Provider: James Valverde MD Date of Service: 01/25/2411/15/1255 ECG/ECG 12 lead ECG: PST urology orders/ HTN Copies to: Test Reason : Blood Pressure : / mmHG Vent. Rate : 056 BPM Atrial Rate : 056 BPM P-R Int : 182 ms QRS Dur : 082 ms QT Int : 422 ms P-R-T Axes : 054 008 013 degrees QTc Int : 407 ms Sinus bradycardia Low voltage QRS Borderline ECG No previous ECGs available Confirmed by SAY CHURCHILL MD ([id number]) on 01/25/2024 3:05:48 PM Referred By: NICOLLE Electronically Signed By:SAY CHURCHILL MD Transcribed By: MUS Signed By Say Churchill MD 0 01/25/24 1505 Normal [facility] Erythrocyte distribution wid th [Ratio] by Automated countOrdered By: James Valverde on 01-25-2024 Erythrocyte distribution width (RBC) [Ratio] 13.5 % Normal 12.0-14.8 [facility] Comment on above: Performed By: #### C BC, BMP, PTT, PT #### [facility] [address] Erythrocytes [#/volume] in B lood by Automated countOrdered By: James Valverde on 01-25-2024 RBC (Bld) [#/Vol] 4.81 10*6/uL Normal 3.90-5.60 [facility] Comment on above: Performed By: #### C BC, BMP, PTT, PT #### [facility] [address] [place] [address] [place] Glucose [Mass/volume] in Ser um or PlasmaOrdered By: James Valverde on 01-25-2024 Glucose [Mass/Vol] 105 mg/dL High 70-100 [facility] Comment on above: ADA recommended refe rence rangeRandom Glucose Reference Range is dependent on time and content of last meal. Glucose of more than 200 mg/dL in a nonstressed, ambulatory subject supports the diagnosis of Diabetes Mellitus. Result Comment: O'Brien om Glucose Reference Range is dependent on time and content of last meal. Glucose of more than 200 mg/dL in a nonstressed, ambulatory subject supports the diagnosis of Diabetes Mellitus. ADA recommended reference range Performed By: #### C BC, BMP, PTT, PT #### [address] Hematocrit [Volume Fraction] of Blood by Automated countOrdered By: James Valverde on 01-25-2024 Hematocrit (Bld) [Volume fraction] 44.2 % Normal 38.8-50.0 [facility] Comment on above: Performed By: #### C BC, BMP, PTT, PT #### [facility] [address] Hemoglobin [Mass/volume] in BloodOrdered By: James Valverde on 01-25-2024 Hemoglobin (Bld) [Mass/Vol] 15.0 g/dL Normal 13.0-17.0 [facility] Comment on above: Performed By: #### C BC, BMP, PTT, PT #### [address] INR in Platelet poor plasma by Coagulation assayOrdered By: James Valverde on 01-25-2024 INR Coag (PPP) [Relative time] 1.0 {INR} Normal [facility] Comment on above: INR Therapeutic Rang e A) Pre- and Peroperative OAT started two weeks before surgery. NOT HIP SURGERY: 1.5 - 2.5 HIP SURGERY: 2 - 3B) Primary and secondary prevention of venous THROMBOSIS: 2 - 3C) Active venous thrombosis, pulmonary embolismand prevention of recurrent venous thrombosis: 2 - 3D) Prevention of arterial thromboembolismincluding patients with mechanical heart valves: 3 - 4.5 Result Comment: INR Therapeutic Range A) Pre- and Peroperative OAT started two weeks before surgery. NOT HIP SURGERY: 1.5 - 2.5 HIP SURGERY: 2 - 3 B) Primary and secondary prevention of venous THROMBOSIS: 2 - 3 C) Active venous thrombosis, pulmonary embolism and prevention of recurrent venous thrombosis: 2 - 3 D) Prevention of arterial thromboembolism including patients with mechanical heart valves: 3 - 4.5 Performed By: #### C BC, BMP, PTT, PT #### [address] Leukocytes [#/volume] correc jaiden for nucleated erythrocytes in Blood by Automated counOrdered By: James Valverde on 01-25-2024 WBC corrected for nucl RBC Auto (Bld) [#/Vol] 4.3 10*3/uL 4.1-10.5 [facility] Leukocytes [#/volume] in Blo od by Automated countOrdered By: James Valverde on 01-25-2024 WBC (Bld) [#/Vol] 4.3 10*3/uL Normal 4.1-10.5 [facility] Comment on above: Performed By: #### C BC, BMP, PTT, PT #### [facility] [address] [place] [address] [place] Lymphocytes [#/volume] in Bl ood by Automated countOrdered By: James Valverde on 01-25-2024 Lymphocytes (Bld) [#/Vol] 1.3 10*3/uL Normal 1.00-4.8 [facility] Comment on above: Performed By: #### C BC, BMP, PTT, PT #### [facility] [address] [place] [address] [place] Lymphocytes/100 leukocytes i n Blood by Automated countOrdered By: James Valverde on 01-25-2024 Lymphocytes/100 WBC (Bld) 29.1 % Normal . [facility] Comment on above: Performed By: #### C BC, BMP, PTT, PT #### [facility] [address] [place] [address] [place] MCH [Entitic mass] by Automa jaiden countOrdered By: James Valverde on 01-25-2024 MCH (RBC) [Entitic mass] 31.2 pg Normal 27.5-35.2 [facility] Comment on above: Performed By: #### C BC, BMP, PTT, PT #### [facility] [address] [place] [address] MCHC Auto (RBC) [Mass/Vol]Or dered By: James Valverde on 01-25-2024 MCHC (RBC) [Mass/Vol] 34.0 g/dL 32.5-35.6 [facility] MCV [Entitic volume] by Auto mated countOrdered By: James Valverde on 01-25-2024 MCV (RBC) [Entitic vol] 92.0 fL Normal 83.5-101 [facility] Comment on above: Performed By: #### C BC, BMP, PTT, PT #### [facility] [address] [place] [address] Neutrophils [#/volume] in Bl ood by Automated countOrdered By: James Valverde on 01-25-2024 Neutrophils (Bld) [#/Vol] 2.5 10*3/uL Normal 1.8-7.7 [facility] Comment on above: Performed By: #### C BC, BMP, PTT, PT #### [facility] [address] [place] [address] No Panel InformationOrdered By: James Valverde on 01-25-2024 Estimated GFR (CKD-EPI) > 60.0 mL/Min [facility] Creatinine Clearance (Chem N/A [facility] Nucleated erythrocytes [Pres ence] in Blood by Automated countOrdered By: James Valverde on 01-25-2024 Nucleated RBC Auto Ql (Bld) 0.1 /100{WBC} 0-0.5 [facility] Partial Thromboplastin Timeo n 01-25-2024 aPTT Coag (Bld) [Time] 28.7 s Normal 25.1-36.5 [facility] Comment on above: Result Comment: A he matocrit value greater than 55% may lead to inaccurate results in coagulation testing. Patients having hematocrit values >55% require a special collection tube for coagulation studies. Please contact the laboratory at [phone] for redraw instructions. PERFORMED BY: [place] [address] PATHOLOGIST SCREEN EXAMINER IHSAN ZARAGOZA M.D. Performed By: #### C BC, BMP, PTT, PT #### [facility] [address] [place] [address] Platelet mean volume [Entiti c volume] in Blood by Automated countOrdered By: James Valverde on 01-25-2024 Platelet mean volume (Bld) [Entitic vol] 8.4 fL Normal 6.6-10.1 [facility] Comment on above: Performed By: #### C BC, BMP, PTT, PT #### [facility] [address] Platelets [#/volume] in Bloo d by Automated countOrdered By: James Valverde on 01-25-2024 Platelets (Bld) [#/Vol] 178 10*3/uL Normal 150-450 [facility] Comment on above: Performed By: #### C BC, BMP, PTT, PT #### [address] Potassium [Moles/volume] in Serum or PlasmaOrdered By: James Valverde on 01-25-2024 Potassium [Moles/Vol] 4.0 mmol/L Normal 3.5-5.1 [facility] Comment on above: Performed By: #### C BC, BMP, PTT, PT #### [address] Prothrombin time (PT)Ordered By: James Valverde on 01-25-2024 PT Coag (PPP) [Time] 11.2 s Normal 9.0-12.9 [facility] Comment on above: A hematocrit value g reater than 55% may lead to inaccurate results in coagulation testing. Patients having hematocrit values >55% require a special collection tube for coagulation studies. Please contact the laboratory at [phone] for redraw instructions. Result Comment: A he matocrit value greater than 55% may lead to inaccurate results in coagulation testing. Patients having hematocrit values >55% require a special collection tube for coagulation studies. Please contact the laboratory at [phone] for redraw instructions. Performed By: #### C BC, BMP, PTT, PT #### [address] Serum or plasma anion gap de terminationOrdered By: James Valverde on 01-25-2024 Anion gap [Moles/Vol] 10.6 mmol/L Normal 6.0-15.0 [facility] Comment on above: Performed By: #### C BC, BMP, PTT, PT #### [address] Sodium [Moles/volume] in Ser um or PlasmaOrdered By: James Valverde on 01-25-2024 Sodium [Moles/Vol] 137 mmol/L Normal 136-145 [facility] Comment on above: Performed By: #### C BC, BMP, PTT, PT #### [facility] [address] [place] [address] [place] Urea nitrogen [Mass/volume] in Serum or PlasmaOrdered By: James Valverde on 01-25-2024 Urea nitrogen [Mass/Vol] 14 mg/dL Normal 7-25 [facility] Comment on above: Performed By: #### C BC, BMP, PTT, PT #### [facility] [address] [place] [id number] [facility] XR chest 2V*on 01-25-2024 XR chest 2V* [facility] [place] [address] [place] [address] XRay Report Signed Patient: Jaylen Montague MR#: [id number] : 1950 Acct:[id number] Age/Sex: 73 / M ADM Date: 01/25/24 Loc: Room: Type: [facility] Attending Dr: James Valverde MD Copies to: James Valverde MD Ordering Provider: James Valverde MD Date of Service: 01/25/24 XR/XR chest 2V*: PST Urology orders Plain film chest 2 view HISTORY: Presurgical testing for prostate biopsy COMPARISON: None FINDINGS: SUPPORT DEVICES: None POSTSURGICAL CHANGES: None HEART: Within normal limits PULMONARY CHANELL: Within normal limits MEDIASTINUM: Unremarkable LUNGS AND PLEURA: No acute lung process, pleural effusion or pneumothorax identified. BONY STRUCTURES: Thoracic hyperostosis ADDITIONAL FINDINGS None XR/XR chest 2V* IMPRESSION: No acute process. Impression dictated by: Reed Prince M.D.01/25/2024 5:41 PM Dictation Location: [place] [address] Transcribed By: [facility] 01/25/241740 Dictated By: Reed Prince DO 01/25/241740 Signed By: 01/25/24 174 [facility] Consent for Procedure/Surger yon 01-22-2024 Consent for Procedure/Surgery [id number]# 1.00TIFF Normal [facility] MR prostate wo/w conon 01-20 MR prostate wo/w con [facility] [place] [address] [place], [place] [id number] MRI Report Signed Patient: Jaylen Montague MR#: [id number] : 1950 Acct:[id number] Age/Sex: 73 / M ADM Date: 01/20/24 Loc: MR Room: Type: [facility] Attending Dr: James Valverde MD Copies to: James Valverde MD Ordering Provider: James Valverde MD Date of Service: 01/20/24 MR/MR prostate wo/w con: R97.20, N40.0 EXAMINATION: MR prostate wo/w con HISTORY: Elevated PSA. COMPARISON: Prostate MRI 05/13/2022 TECHNIQUE: Multiparametric imaging of the prostate gland was performed with IV contrast. FINDINGS: Prostate Dimensions: 4.3 x 3.5 x 4.5 cm. Prostate Volume: 35 mL Peripheral Zone: Heterogenous inT2 signal suggestive of prior prostatitis. The previously identified focal area of T2 hypointensity involving the posterior aspect of the right peripheral zone at the level of the mid gland appears to have increased in size now measuring 15 x 10 mm, once measuring 11 x 7 mm. There appears to be extracapsular extension present. There is associated restricted diffusion and low ADC value. Please see series 5 image 20, series 650 image 20 and series 600 image 20. Central/Transitional Zone: BPH changes. Seminal Vesicles: Unremarkable Neurovascular bundles: Unremarkable. Lymphadenopathy: No evidence of lymphadenopathy. Bladder: No focal lesion. Bowel: The visualized bowel is without acute abnormality. Peritoneal Cavity: No free fluid. Bones: No suspicious bony lesion. MR/MR prostate wo/w con IMPRESSION: The previously identified focal area of T2 hypointensity involving the posterior aspect of the right peripheral zone at the level of the mid gland appears to have increased in size now measuring 15 x 10 mm, once measuring 11 x 7 mm. There appears to be extracapsular extension present. There is associated restricted diffusion and low ADC value. Please see series 5 image 20, series 650 image 20 and series 600 image 20.PI-RADS 5. If biopsy is being considered, targeting of this area is recommended. Impression dictated by: Trey Philippe Jr., D.O.01/21/2024 8:50 AM Dictation Location: [place] [address] Transcribed By: [facility] 01/21/24 0850 Dictated By: Trey Philippe Jr DO 01/21/24 0842 Signed By: 01/21/24 0850 Normal [facility] RAD - MRI Reporton RAD - MRI Report [id number] #1.00TIFF Normal [facility] ISTAT XRay CREon 01-20-2024 ISTAT GFR > 60.0 Normal [facility] Comment on above: Result Comment: PERF ORMED BY: [place] [address] PATHOLOGIST SCREEN EXAMINER IHSAN ZARAGOZA M.D. Performed By: #### I SCRE #### [facility] [address] [place] [address] No Panel InformationOrdered By: James Valverde on 01-20-2024 Bedside Estimated GFR (eGFR) > 60.0 [facility] Whole blood creatinine measu rementOrdered By: James Valverde on 01-20-2024 Creatinine [Mass/Vol] 0.9 mg/dL Normal 0.6-1.3 [facility] Comment on above: ER/ESD physician is notified/shown all ISTAT results.Critical values may be confirmed by laboratory testing ifdeemed necessary by ER attending doctor. Result Comment: ER/E SD physician is notified/shown all ISTAT results. Critical values may be confirmed by laboratory testing if deemed necessary by ER attending doctor. Performed By: #### I SCRE #### [facility] [address] [place] [address] [place] Insurance Correspondenceon 0 12-30-2023 Insurance Correspondence [id number] #1.00TIFF Normal [facility] Screenson 12-24-2023 Screens [id number] 1#1.00TIFF [facility] Ambulatory Visit Summaryon 0 12-23-2023 Ambulatory Visit Summary JALYEN MONTAGUE :1950 Visit Date:12/23/2023 Ambulatory Visit Instructions Your Diagnosis Elevated PSA BPH (benign prostatic hyperplasia) Fecal incontinence Family history of prostate cancer in father Tests Performed MRI Pelvis (Soft Tissue) w/ + w/o contrast -- Results Pending -- Please visit your patient portal for your results or contact your primary care physician. Your Care Team Attending Physician - James VALVERDE MD Primary Care Physician - REED FRITZ DO This Is Your Medications List Contact prescribing physician if questions or concerns atorvastatin (atorvastatin 20 mg Tab) carbamazepine fosinopril (fosinopril 20 mg Tab) hydrochlorothiazide (hydrochlorothiazide 25 mg Tab) latanoprost ophthalmic Procedures Performed MRI-US fusion guided transperineal biopsy of prostate (06/11/2022), Colonoscopy, Knee replacement, Tonsillectomy. Discharge Vitals Temperature (Temporal Artery) 37 ?C Respiratory Rate 14 Blood Pressure 130/74 Height 183 cm Height 72 in Weight 113 kg Weight 248.6 lb BMI 33.74 What to do next Scheduled Follow-Up Appointments Thursday. 2024 1:15 PM EDT With: NICOLLE ALBERTS, James Valente Where: [facility] Patient Educationon 12-23-19 24 Patient Education Oncology Prostate Cancer Screening Prostate cancer screening is testing that is done to check for the presence of prostate cancer in men. The prostate gland is a walnut-sized gland that is located below the bladder and in front of the rectum in males. The function of the prostate is to add fluid to semen during ejaculation. Prostate cancer is one of the most common types of cancer in men. Who should have prostate cancer screening? Screening recommendations vary based on age and other risk factors, as well as between the professional organizations who make the recommendations. In general, screening is recommended if: ? You are age 50 to 70 and have an average risk for prostate cancer. You should talk with your health care provider about your need for screening and how often screening should be done. Because most prostate cancers are slow growing and will not cause , screening in this age group is generally reserved for men who have a 10- to 15-year life expectancy. ? You are younger than age 50, and you have these risk factors: ? Having a father, brother, or uncle who has been diagnosed with prostate cancer. The risk is higher if your family member's cancer occurred at an early age or if you have multiple family members with prostate cancer at an early age. ? Being a male who is Black or is of [place] or sub-Saharan descent. In general, screening is not recommended if: ? You are younger than age 40. ? You are between the ages of 40 and 49 and you have no risk factors. ? You are 70 years of age or older. At this age, the risks that screening can cause are greater than the benefits that it may provide. If you are at high risk for prostate cancer, your health care provider may recommend that you have screenings more often or that you start screening at a younger age. How is screening for prostate cancer done? The recommended prostate cancer screening test is a blood test called the prostate-specific antigen (PSA) test. PSA is a protein that is made in the prostate. As you age, your prostate naturally produces more PSA. Abnormally high PSA levels may be caused by: ? Prostate cancer. ? An enlarged prostate that is not caused by cancer (benign prostatic hyperplasia, or BPH). This condition is very common in older men. ? A prostate gland infection (prostatitis) or urinary tract infection. ? Certain medicines such as male hormones (like testosterone) or other medicines that raise testosterone levels. A rectal exam may be done as part of prostate cancer screening to help provide information about the size of your prostate gland. When a rectal exam is performed, it should be done after the PSA level is drawn to avoid any effect on the results. Depending on the PSA results, you may need more tests, such as: ? A physical exam to check the size of your prostate gland, if not done as part of screening. ? Blood and imaging tests. ? A procedure to remove tissue samples from your prostate gland for testing (biopsy). This is the only way to know for certain if you have prostate cancer. What are the benefits of prostate cancer screening? ? Screening can help to identify cancer at an early stage, before symptoms start and when the cancer can be treated more easily. ? There is a small chance that screening may lower your risk of dying from prostate cancer. The chance is small because prostate cancer is a slow-growing cancer, and most men with prostate cancer from a different cause. What are the risks of prostate cancer screening? The main risk of prostate cancer screening is diagnosing and treating prostate cancer that would never have caused any symptoms or problems. This is called overdiagnosisand overtreatment. PSA screening cannot tell you if your PSA is high due to cancer or a different cause. A prostate biopsy is the only procedure to diagnose prostate cancer. Even the results of a biopsy may not tell you if your cancer needs to be treated. Slow-growing prostate cancer may not need any treatment other than monitoring, so diagnosing and treating it may cause unnecessary stress or other side effects. Questions to ask your health care provider ? When should I start prostate cancer screening? ? What is my risk for prostate cancer? ? How often do I need screening? ? What type of screening tests do I need? ? How do I get my test results? ? What do my results mean? ? Do I need treatment? Where to find more information ? The [place] [employer]: www.cancer.org ? [place] [employer]: www.auanet.org Contact a health care provider if: ? You have difficulty urinating. ? You have pain when you urinate or ejaculate. ? You have blood in your urine or semen. ? You have pain in your back or in the area of your prostate. Summary ? Prostate cancer is a common type of cancer in men. The prostate gland is located below the bladder and in front of the rectum. This gland adds flu (more content not included)... Normal [facility] Urology Office/Clinic Noteon 12-23-2023 Urology Office/Clinic Note Chief Complaint 6 month follow up w/ PSA HPI Staff 6 month follow up w/PSA Previous DX: BPH, elevated PSA, family history of prostate cancer. S/P MRI fusion biopsy done on 06/11/22. PSA 03/19/22- 6.49 04/10/23 - 12.3 12/08/23 - 11.56 Dysuria: denies pain and burning Incomplete bladder emptying: denies Hematuria: denies visible blood Frequency: every few hours Urgency: denies Nocturia: not for a while Stream: denies hesitancy Leaking: denies Post void dripping: denies Wearing pads/ Depends: denies Urge incontinence: denies Stress incontinence: denies Incontinence without Sensory Awareness: denies Abdominal pain: denies Flank pain: denies Sexual complaints: _ History of Present Illness Tests reviewed: reviewed PSA I have reviewed the previous health record information and history for this patient from Dr. Valverde. I have reviewed and verified the staff HPI to be accurate for this encounter. There have been no associated fever, chills, flank pain, or blood in the urine. Denies any urinary infections since last encounter. Review of Systems PHQ Score Initial Depression Screen Score: 0 SCORE ROS - Provider Constitutional: denies weight loss, denies hot flashes. Eyes: denies eye problems. Gastrointestinal: denies nausea, denies vomiting. Cardiovascular: denies chest pain or angina. Integumentary: no dryness Musculoskeletal: denies musculoskeletal symptoms. ENMT: denies otolaryngeal symptoms. Respiratory: no shortness of breath. Heme/Lymph: denies easy bleeding tendency, denies easy bruising tendency. Psychiatric: no confusion, no anxiety. Genitourinary: See HPI. Physical Exam Vitals & Measurements T: 37 ?C(Temporal Artery) RR: 14 BP: 130/74 HT: 72 in HT: 183 cm WT: 113 kg WT: 248.6 lb BMI: 33.74 General Appearance: alert, no distress, well nourished, well developed male. Genitourinary: normal scrotum, normal testes, normal urethra, normal epididymis, normal vas deferens/spermatic cord. Flank Pain: none. Bladder: nonpalpable. Prostate: normal prostate, estimated weight 35 gms, no hard nodule observed. Assessment/Plan Pt accompanied by an adult female today. 1. Elevated PSA (R97.20: Elevated prostate specific antigen [PSA]) PSA: 03/19/22 - 6.49 04/10/23 - 12.3 12/08/23 - 11.56 MRI prostate 05/13/22 [facility] [place] PI-RADS 4, posterior aspect of the R peripheral zone at the mid gland measuring 11 x 7 mm. No evidence of gross extraprostatic extension. Prostate volume 40 cc. S/p MRI prostate fusion bx 06/11/22 - All benign. PSA relatively stable, still overall high. Will cont to monitor. Discussed repeating MRI of prostate since PSA remains very high. FAY 35 g, no nodules. Follow up pending MRI of prostate results or sooner if needed. Pt understands and agrees with plan. 2. BPH (benign prostatic hyperplasia) (N40.0: Benign prostatic hyperplasia without lower urinary tract symptoms) Pt unable to provide urine sample today. IPSS 7 (9). Not taking any BPH meds. 3. Fecal incontinence (R15.9: Full incontinence of feces) Shares that it takes him a while to clean himself and when he goes to the bathroom later he finds [place] in his underwear. Onset sometime after the bx. Sounds like a sphincter incompintence. Advised pt to see a general surgeon. 4. Family history of prostate cancer in father (Z80.42: Family history of malignant neoplasm of prostate) Cont screening above (see #1). Follow-up With When Contact Information NICOLLE ALBERTS, James Valente, URL [facility] [address], [place] [address]- Additional Instructions: f/u pending MRI of prostate results Patient Education Prostate Cancer Screening I, Stephie Ontiveros, personally scribed for Dr. Valverde on 12/23/2023 13:44:50. . Documentation recorded by the scribe, Stephie Ontiveros, accurately reflects the services(s) I performed and decisions made by me. Authenticated by Dr. Valverde on 12/23/2023 13:50:39. Problem List/Past Medical History Ongoing BPH (benign prostatic hyperplasia) Elevated PSA Family history of prostate cancer in father Fecal incontinence Headache High cholesterol Hypertension Prostatitis Seizures Historical No qualifying data Procedure/Surgical History MRI-US fusion guided transperineal biopsy of prostate (06/11/2022), Colonoscopy, Knee replacement, Tonsillectomy. Medications atorvastatin 20 mg Tab, 20 mg= 1 tab(s), Oral, Daily carbamazepine fosinopril 20 mg Tab, 20 mg= 1 tab(s), Oral, Daily hydrochlorothiazide 25 mg Tab, 25 mg= 1 tab(s), Oral, Daily latanoprost ophthalmic, qPM Allergies No Known Medication Allergies Social History Tobacco Former smoker, quit more than 30 days ago Tobacco Use:. Never Smokeless Tobacco Use:. Cigarettes, 12/23/2023 Family History Arthritis: Father. Diabetes: Father. Heart disease: Father. Hyperlipidemia: Father. Hypertension: Father. Prostate cance (more content not included)... Normal [facility] Comment on above: Result Comment: Elec tronically Signed By: NICOLLE ALBERTS, James Valente\.br\Date and Time Signed: 12/23/23 13:50 EDT\.br\Electronically Co-Signed By: Stephie Ontiveros\.br\Date and Time Co-Signed: 12/23/23 13:46 EDT Lab Reportson 12-11-2023 Lab Reports [id number] #1.00TIFF Normal [facility] XR CHEST 2 VIEWSon XR CHEST 2 VIEWS EXAMINATION/TECHNIQU E: XR CHEST 2 VIEWS HISTORY: Cough. COMPARISON: None RESULT: No consolidation. No pleural effusion. No pneumothorax. Normal cardiomediastinal silhouette. No acute osseous findings. Degenerative changes. IMPRESSION: No acute radiographic findings. ELECTRONICALLY SIGNED BY: aNzario Real MD Normal Not Available Physician Referralon 023 Physician Referral [id number] #1.00TIFF [facility] Lab Reportson 06-01-2023 Lab Reports [id number] 2#1.00TIFF [facility] 05-28-2023 Screens [id number] #1.00CD:127 Normal [facility] Ambulatory Visit Summaryon 1 Ambulatory Visit Summary JAYLEN MONTAGUE :1950 Visit Date:05/27/2023 Ambulatory Visit Instructions Your Diagnosis Elevated PSA BPH (benign prostatic hyperplasia) Fecal incontinence Family history of prostate cancer Your Care Team Attending Physician - NICOLLE ALBERTS, James Valente Primary Care Physician - REED FRITZ DO This Is Your Medications List Contact prescribing physician if questions or concerns atorvastatin (atorvastatin 20 mg Tab) carbamazepine fosinopril (fosinopril 20 mg Tab) hydrochlorothiazide (hydrochlorothiazide 25 mg Tab) latanoprost ophthalmic Procedures Performed MRI-US fusion guided transperineal biopsy of prostate (06/11/2022), Colonoscopy, Knee replacement, Tonsillectomy. Discharge Vitals Heart Rate (Peripheral) 60 Blood Pressure 128/73 Height 183 cm Height 72 in Weight 113 kg Weight 248.6 lb BMI 33.74 What to do next You Need to Schedule the Following Appointments Follow Up with NICOLLE ALBERTS, MARII Roland When: In 6 months Comments: w/ PSA Where: [facility] [address] [place] [address] [phone] Medications What How Much When Instructions Unchanged atorvastatin (atorvastatin 20 mg Tab) 1 Tablets By Mouth Every day Contact prescribing physician if questions or concerns Unchanged carbamazepine Contact prescribing physician if questions or concerns Unchanged fosinopril (fosinopril 20 mg Tab) 1 Tablets By Mouth Every day Contact prescribing physician if questions or concerns Unchanged hydrochlorothiazide (hydrochlorothiazide 25 mg Tab) 1 Tablets By Mouth Every day Contact prescribing physician if questions or concerns Unchanged latanoprost ophthalmic Once a day (in the evening) Contact prescribing physician if questions or concerns Allergies No Known Medication Allergies Problems Ongoing - Any problem that you are currently receiving treatment for. BPH (benign prostatic hyperplasia) Elevated PSA Family history of prostate cancer Fecal incontinence Headache High cholesterol Hypertension Prostatitis Seizures Education Materials Prostate Cancer Screening Prostate cancer screening is testing that is done to check for the presence of prostate cancer in men. The prostate gland is a walnut-sized gland that is located below the bladder and in front of the rectum in males. The function of the prostate is to add fluid to semen during ejaculation. Prostate cancer is one of the most common types of cancer in men. Who should have prostate cancer screening? Screening recommendations vary based on age and other risk factors, as well as between the professional organizations who make the recommendations. In general, screening is recommended if: ? You are age 50 to 70 and have an average risk for prostate cancer. You should talk with your health care provider about your need for screening and how often screening should be done. Because most prostate cancers are slow growing and will not cause , screening in this age group is generally reserved for men who have a 10- to 15-year life expectancy. ? You are younger than age 50, and you have these risk factors: ? Having a father, brother, or uncle who has been diagnosed with prostate cancer. The risk is higher if your family member's cancer occurred at an early age or if you have multiple family members with prostate cancer at an early age. ? Being a male who is Black or is of [place] or sub-Saharan descent. In general, screening is not recommended if: ? You are younger than age 40. ? You are between the ages of 40 and 49 and you have no risk factors. ? You are 70 years of age or older. At this age, the risks that screening can cause are greater than the benefits that it may provide. If you are at high risk for prostate cancer, your health care provider may recommend that you have screenings more often or that you start screening at a younger age. How is screening for prostate cancer done? The recommended prostate cancer screening test is a blood test called the prostate-specific antigen (PSA) test. PSA is a protein that is made in the prostate. As you age, your prostate naturally produces more PSA. Abnormally high PSA levels may be caused by: ? Prostate cancer. ? An enlarged prostate that is not caused by cancer (benign prostatic hyperplasia, or BPH). This condition is very common in older men. ? A prostate gland infection (prostatitis) or urinary tract infection. ? Certain medicines such as male hormones (like testosterone) or other medicines that raise testosterone levels. A rectal exam may be done as part of prostate cancer screening to help provide information about the size of your prostate gland. When a rectal exam is performed, it should be done after the PSA level is drawn to avoid any effect on the results. Depending on the PSA results, you may need more tests, such as: ? A physical (more content not included)... Normal [facility] Patient Educationon 05-27-20 Patient Education Oncology Prostate Cancer Screening Prostate cancer screening is testing that is done to check for the presence of prostate cancer in men. The prostate gland is a walnut-sized gland that is located below the bladder and in front of the rectum in males. The function of the prostate is to add fluid to semen during ejaculation. Prostate cancer is one of the most common types of cancer in men. Who should have prostate cancer screening? Screening recommendations vary based on age and other risk factors, as well as between the professional organizations who make the recommendations. In general, screening is recommended if: ? You are age 50 to 70 and have an average risk for prostate cancer. You should talk with your health care provider about your need for screening and how often screening should be done. Because most prostate cancers are slow growing and will not cause , screening in this age group is generally reserved for men who have a 10- to 15-year life expectancy. ? You are younger than age 50, and you have these risk factors: ? Having a father, brother, or uncle who has been diagnosed with prostate cancer. The risk is higher if your family member's cancer occurred at an early age or if you have multiple family members with prostate cancer at an early age. ? Being a male who is Black or is of [place] or sub-Saharan descent. In general, screening is not recommended if: ? You are younger than age 40. ? You are between the ages of 40 and 49 and you have no risk factors. ? You are 70 years of age or older. At this age, the risks that screening can cause are greater than the benefits that it may provide. If you are at high risk for prostate cancer, your health care provider may recommend that you have screenings more often or that you start screening at a younger age. How is screening for prostate cancer done? The recommended prostate cancer screening test is a blood test called the prostate-specific antigen (PSA) test. PSA is a protein that is made in the prostate. As you age, your prostate naturally produces more PSA. Abnormally high PSA levels may be caused by: ? Prostate cancer. ? An enlarged prostate that is not caused by cancer (benign prostatic hyperplasia, or BPH). This condition is very common in older men. ? A prostate gland infection (prostatitis) or urinary tract infection. ? Certain medicines such as male hormones (like testosterone) or other medicines that raise testosterone levels. A rectal exam may be done as part of prostate cancer screening to help provide information about the size of your prostate gland. When a rectal exam is performed, it should be done after the PSA level is drawn to avoid any effect on the results. Depending on the PSA results, you may need more tests, such as: ? A physical exam to check the size of your prostate gland, if not done as part of screening. ? Blood and imaging tests. ? A procedure to remove tissue samples from your prostate gland for testing (biopsy). This is the only way to know for certain if you have prostate cancer. What are the benefits of prostate cancer screening? ? Screening can help to identify cancer at an early stage, before symptoms start and when the cancer can be treated more easily. ? There is a small chance that screening may lower your risk of dying from prostate cancer. The chance is small because prostate cancer is a slow-growing cancer, and most men with prostate cancer from a different cause. What are the risks of prostate cancer screening? The main risk of prostate cancer screening is diagnosing and treating prostate cancer that would never have caused any symptoms or problems. This is called overdiagnosisand overtreatment. PSA screening cannot tell you if your PSA is high due to cancer or a different cause. A prostate biopsy is the only procedure to diagnose prostate cancer. Even the results of a biopsy may not tell you if your cancer needs to be treated. Slow-growing prostate cancer may not need any treatment other than monitoring, so diagnosing and treating it may cause unnecessary stress or other side effects. Questions to ask your health care provider ? When should I start prostate cancer screening? ? What is my risk for prostate cancer? ? How often do I need screening? ? What type of screening tests do I need? ? How do I get my test results? ? What do my results mean? ? Do I need treatment? Where to find more information ? The [place] [employer]: www.cancer.org ? [place] [employer]: www.auanet.org Contact a health care provider if: ? You have difficulty urinating. ? You have pain when you urinate or ejaculate. ? You have blood in your urine or semen. ? You have pain in your back or in the area of your prostate. Summary ? Prostate cancer is a common type of cancer in men. The prostate gland is located below the bladder and in front of the rectum. This gland adds flu (more content not included)... Normal [facility] Urology Office/Clinic Noteon 05-27-2023 Urology Office/Clinic Note Chief Complaint 11 month follow up w/ PSA [facility] Staff Jaylen is a 72 y.o. male here for 11 month follow up w/ PSA. Previous DX: BPH, elevated PSA, family history of prostate cancer. S/P MRI fusion biopsy done on 06/11/22. Current PSA 12.1 done 04/10/23. Previous PSA 6.49 done on 03/19/22. Pt unable to give urine sample today. IPSS SCORE 9. Dysuria: denies pain and burning Incomplete bladder emptying: denies Hematuria: denies visible blood Frequency: 4-5x a day Urgency: denies Nocturia: sometimes once a night Stream: sometimes hesitancy, medium stream Leaking: denies Post void dripping: denies Wearing pads/ Depends: denies Urge incontinence: denies Stress incontinence: denies Incontinence without Sensory Awareness: denies Abdominal pain: denies Flank pain: denies Sexual complaints: denies History of Present Illness Tests reviewed: reviewed UA, PSA I have reviewed the previous health record information and history for this patient from Dr. Valverde. I have reviewed and verified the staff HPI to be accurate for this encounter. There have been no associated fever, chills, flank pain, or blood in the urine. Denies any urinary infections since last encounter. Review of Systems PHQ Score Initial Depression Screen Score: 0 ROS - Provider Constitutional: denies weight loss, denies hot flashes. Eyes: denies eye problems. Gastrointestinal: denies nausea, denies vomiting. Cardiovascular: denies chest pain or angina. Integumentary: no dryness Musculoskeletal: denies musculoskeletal symptoms. ENMT: denies otolaryngeal symptoms. Respiratory: no shortness of breath. Heme/Lymph: denies easy bleeding tendency, denies easy bruising tendency. Psychiatric: no confusion, no anxiety. Genitourinary: See HPI. Physical Exam Vitals & Measurements HR: 60(Peripheral) BP: 128/73 HT: 72 in HT: 183 cm WT: 113 kg WT: 248.6 lb BMI: 33.74 General Appearance: alert, no distress, well nourished, well developed male. Genitourinary: normal scrotum, normal testes, normal urethra, normal epididymis, normal vas deferens/spermatic cord. Flank Pain: none. Bladder: nonpalpable. Prostate: normal prostate, estimated weight 35 gms, no hard nodule observed. Assessment/Plan 1. Elevated PSA (R97.20: Elevated prostate specific antigen [PSA]) MRI prostate 05/13/22 [facility] [place] 40mL prostate volume, PI-RADS 4. MRI prostate fusion bx 06/11/22 - neg. PSA 03/19/22- 6.49 04/10/23 - 12.[address] Busby had not been checking his PSA so he had it checked. Discussed recent PSA results. Likely increased due to chronic prostate inflammation. No sample provided for UA today. Pt to try to provide sample before he leaves our office. FAY: 35 gms, no hard nodules Follow up with PSA in 6 months or sooner if needed. All questions/concerns were discussed. Pt to call the office if he encounters any issues prior. Pt acknowledges understanding. -if PSA is elevated, will repeat MRI or possible repeat bx 2. BPH (benign prostatic hyperplasia) (N40.0: Benign prostatic hyperplasia without lower urinary tract symptoms) IPSS 9. Not currently taking any BPH medications. Denies any bothersome urinary sxs at this time. 3. Fecal incontinence (R15.9: Full incontinence of feces) Began since MRI fusion bx 06/11/22. States he wipes after a BM and will later have streaks in his underwear. Discussed that we are uncertain about the cause of his bowel streaing. Admits his BMs began to improve recently. 4. Family history of prostate cancer (Z80.42: Family history of malignant neoplasm of prostate) Father. Follow-up With When Contact Information NICOLLE ALBERTS, James Valente, URL In 6 months [facility] [address], [place] [address] [phone] Additional Instructions: w/ PSA Patient Education Prostate Cancer Screening I, Noemy Metz, personally scribed for Dr. Valverde on 05/27/2023 11:51:00. . Documentation recorded by the scribe, Noemy Metz, accurately reflects the services(s) I performed and decisions made by me. Authenticated by Dr. Valverde on 05/27/2023 11:55:10. Problem List/Past Medical History Ongoing BPH (benign prostatic hyperplasia) Elevated PSA Family history of prostate cancer Fecal incontinence Headache High cholesterol Hypertension Prostatitis Seizures Historical No qualifying data Procedure/Surgical History MRI-US fusion guided transperineal biopsy of prostate (06/11/2022), Colonoscopy, Knee replacement, Tonsillectomy. Medications atorvastatin 20 mg Tab, 20 mg= 1 tab(s), Oral, Daily carbamazepine fosinopril 20 mg Tab, 20 mg= 1 tab(s), Oral, Daily hydrochlorothiazide 25 mg Tab, 25 mg= 1 tab(s), Oral, Daily latanoprost ophthalmic, qPM Allergies No Known Medication Allergies Social History Tobacco Former smoker, quit more than 30 days ago Tobacco Use:. Never Smokeless Tobacco Use:. Cigarettes, 05/27/2023 Family History Arthritis: (more content not included)... Normal [facility] Comment on above: Result Comment: Elec tronically Signed By: James VALVERDE MD\.br\Date and Time Signed: 05/27/23 11:55 EDT\.br\Electronically Co-Signed By: Noemy Metz\.br\Date and Time Co-Signed: 05/27/23 11:51 EDT Creatinine (Bld) [Mass/Vol]O rdered By: James Valverde on 05-13-2022 Creatinine [Mass/Vol] 0.8 mg/dL 0.6-1.3 [facility] Comment on above: ER/ESD physician is notified/shown all ISTAT results. Critical values may be confirmed by laboratory testing if deemed necessary by ER attending doctor. No Panel InformationOrdered By: James Valverde on 05-13-2022 POC Estimated GFR > 60 [facility] Comment on above: GFR estimated refere nce range: According to KDOQI guidelines, <60 ml/min/1.73m2 is sufficient to diagnose a patient with chronic kidney disease. POC Estimated GFR Non- Amer > 60 [facility] OR Trackon 01-13-2022 Pl Red # 1 Normal [facility] Comment on above: Performed By: #### P TT #### [facility] [address] [place] [address] Tegretolon 01-13-2022 Tegretol Level 6.4 mcg/mL Normal 4.0-12.0 [facility] Comment on above: Performed By: #### P TT #### [facility] [address] [place] [address] Coding Summaryon 07-25-2021 Coding Summary HTMLBase 64 YdppycsoAXx2nEz+PGhl YWQ+OP1NQZZhW43fpPFd gF6UA0fMUS9YSYQNTUVV NV2RAY5iyFH8EUzpO2Nx biAv YszenBTlNY04ROm5SSZ7 eCtiZWwqoB2mgNVtY0q5 IdBcQN54uT86LRisHNUy UkK4OoNftbhatRHf A7wnQcLctDVlAmm+PHRh YmxlIHdpZHRoPScxMDAl UpYrfQmcOZ7aKp7kQIEp LWNvbGxhcHNlOiBj h8fyJOGsERwiCH4wfUqx D9MhgOT8JFKmn2v3Da50 dHI+ZPIrEMY2mKwzQUck y118TwWic9lgZKC3 tUXyJYpsXTC5Y30nf9C6 TZTqMMYfPZT2hTQ3bF6v vLfmnszmL5GxiBQrWlN4 FLV0iIXwkL2cxOlk bvkvtO1mAuc+E37ADP6K CTAGAC5ZDcp2P2YuLfif dHI+NK62ISWoQP71zHTo mISlm1bzyHs1ViWi RNUgIWR9gAqaFZvox7Gq YXHaR44dwXSue2M9QKNq qTmhbNFuSvLqyUP9yB6q KTnrvrzjh5bbtwes Lucec3oyds09gX79M82w VHlsBBQeOXK2XMUcAJOz kJgopu9axC5hLi3+IDxj p4rjy8kcrLp5QxKe THXmhtJqyXqrZDY6s0Go Nv59D2DeoLedh8KrZjd0 pb36dPSoc9V9nDS2OZrd VPTmuD9lEMyjQxG7 STOeOtOksN02qCKdLNze Up3oyBwolBryYV2qUXHd kfqoOPEajF2cWPXviYJk vDjaVY3pZXRhzjoy z684XvVwABM1KFWluLQq L0AwbR3xVeIlELNfROMm I2BulFCuUQvyZ491TStp AmS7LISrcrVrT7Xr SFYwkGwcLxT6x4K3Nl9T t9SjryzuPQA9XYwqRYOv FrHjWfLyRuP2M8UxIud2 QJXasIvmAS0fX0Nn FYSuqfybqbltcIY9UCSb KDUcjO06aEKtMMmgEz2o k1A5o392MEMiHDTtjV17 Wq6ngJbkXSRrnKPP zJ1bshffs2ljsrixJlNz LCOaNFe4GSn2TXOoyLvq WuLnFPY4HrL6FER3hDRb qJ3urLrqipmxhH3b Oyc+I50ocN5nLPS1BFK5 xtfsCGCafuNxBF92HP62 L7KuDknceWLtbBA+PGRp hcFrmGfhKO8hJmDx t2szu1JcENwuG5IiMGIt YMnkSiq2HGQxLFO8rSC8 cM5iKJUvMRrhf4P1aYM2 X4JwzjFmed7ir0cq BGTkJGxwV35eeUCzk9S9 LDQxqVF0MUXmlUbpOnWt vL15Txg+VMNjcOjmt2Ct Nqtyy8avl3gojBy9 IjMwJSIgdmFsaWduPSJ0 g8UmKr94L20vWYvdNAMw RIYsTUJrHIFqnAcjub6x qX6iTa5+PGNvbCB3 bTX7mP3ePZRpFsC6VXxu U716AnAtrKOgIonci6tz e6gmvFu3VvElCCNegnBf mYbpEHY6i7IbOt56 B57rNLbuGWGoSICwJBGy IPMlaVbqnh9lsH0bUi3+ SA8jy5ctot25mV99tJB+ HEKgCWG9qOuxLXoy TKHicJ2oLDxtDzJ0ILQs EvNmpB05zAVdIToiSr7r zCgxqXkpEV9lWCKpuqgq u641MtXrs7mxDMFt nKGeQNxnOOL4E04zh7G7 XKZyTLVtOJQ6cMF5lU2p bGlnbjogbGVmdDsgdmVy tRhoDLewRCwpL204 IHRvcDsnPlBhdGllbnQg ZiVlDLq4L4XwUhy0CHKk iVxwJT1gvIBvLXyoAa7s vXlxvRjtTF1tBZFq yzbbd146YnOve8yhOEEg sYAwDEgmAWE4L27dh4T3 ZVGdCAOzGFY7nKZ5kG4h bGlnbjogbGVmdDsg pvLqmIbcACcbRAehO532 IHRvcDsnPkJpcnRoIERh iBF9DG33AP18sLIxg0V7 eDF5J0HtYHQadwax poivqIQ1LQRkABIqoL30 Zf4tfLgiBe5iYIZlWWT0 IEDsiPTpC9AhzT3lYkWt NMVsBQEmI2QusXMg CJpaJ123LAdzSsG2DKBt joNxE3PxHFWtbBoaKfH0 s6Q7Qb9YG5G9GB93IF94 qCUbm4R9mXN9B1Or RYHmfnuvxehhcVE4BMOe ZNSkyF47Ni6ccBbzRr2o ESAbKHO6SGMzkEOpC3Um wX7lZuTxSAZmCYUf Q5KxdPPaYKjeC724BQjj ZmV5MTThlhHpS8CpVTUw jJtvMnU2c5J0Gx8KOJo5 NF09HH49kXIgl1M5 aXE6H6ObVGKenenkpdnm pMW1WTReMMMvcR56Cw2r xFcrWb2vXLBkYJZ7BAAh aAKcC8SngL7lWeWg XEGtBLGgH3CqaCBiRGtk D411GFfvIkD5NRFnzhGr Q2IaNDIkfAruTqY8n8C5 Vb1CQHEjWD17XGP5 dII6ZW15NA51L1SsMcbd dGFibGU+PHRhYmxlIHdp ZHRoPScxMDAlJyBzdHls SS4lKt6bJSZqWBPs mRsvfBYfVzCfp9dyDGPk FCesMQ1erPbaI7TuaID8 ZFIsc5r0Ll74N76mD4Lu dXA+XKXipTF9iXT1 qV9bPxTmGdS1PAzfE135 RiUyeWHdEwqyz5ohy8wo sDf6TmD9XQWczeNumCef JVI0b1QdUy34B73m IHdpZHRoPSIxNSUiIHZh yJtlzq9peF6wTn0+PGNv kHL8nJA8lG6cNyLoHbL1 EZmtM266JrYiaCSk Etofq6qwh7alnSr0MdUe SXHylhZnkGrdFLT2s1Hb Ly87X8WwbMrnr8VvSix2 ix48lTYpe0J5dPM3 K8RcKGFudfjnrMLbdIae VV8pFFAjkbfxKQOvsJ4t ZBUnK7b0RwNjPsX7EVku M6OgjcV9HUSwpCMt SPbiUOY7V75gu6C9CUIe UHHdWYT9vHZ3kY8csQtb bjogbGVmdDsgdmVydGlj UXkdCLdtV245CIPq yVjvBFSnhL2yONCgeJZu lCnlXI8rDHMkzavaUeKM RScjQKUJBUUDNM2lIQoc dGQ+ODPuKQO8tSub HTcaANBqbI2eMZGzL8w2 HxXkNaR2VShwW9IcOXRk rfedHz61bW0vKrCwDbW7 KMlvE4QcioO8SWJn yDWxIJfiBTJ8H23xn7Y7 FWKrCBAnTTB1gJE5pD0p bGlnbjogbGVmdDsgdmVy mOmfLBzjDWumG673 FDHuaJbpNnZuHbR4BxK0 RLj5P7XaAqt7KJUxcEef VL3tuSOiXFefEl4rqIzv dJnfZV7qADWnrobg WLKbhV5lHIZyvEUnoRmo UO9hJQDrvzlcg686VhUm XPM5DLHjjCTuK7OsmK2f RcLwVSLfHQXnS7Bl eDTdRIacZ798SVpsYnW9 OVZzxzGhC4HmGWCcgPiu YxY4y8Z1Eo67BsKOMZXy czwvdGQ+PHRkIHN0 eTpeKYuoNKKsbV6yYHAp K2e6BgQeBhO5QUqxE3Sv AFRkirzgDq04jP8eKvAm IoO6MDksY1EfvnM4 LNUfrYTqTEiaZYB2A98x l5L7SAGhGHHuHNL8jZZ7 mY3vkCicfunteEVevRxm dmVydGljYWwtYWxp D562WDHmyWvdEi4LNEB1 C4QuIpv1ZRWveMwaMT1p jTSfNYhiUy4ctFopfOye EI4zPPZvgkxuQFOk kR7pCINrpKBkaLckFY4p CQXilliit977QxWbPUC7 ZJGoqFSlM9QxmZ6bIqCn YLCdUDVxF2FtbXFu OStfT112FCjyAmW0FAAo gtHdA7RpRBDufCrdSjB0 z7E5Zo6YUOgpjGH+PC90 et69U2ZwDpgyWwq2 SRGfDUK2tBS4bH8wYMZa GJjlw6A3eRY0K6XwbmGh ft1kq4miFFAcQQoaF44a mXBai5B3HUTohZZ1 WTSfrPpqJrRdqI64Jyp+ TTOqaCslt3UcTlvwt7zi v2rpbKf0ZxXbFRIqjwQy qCrnOJN7y9MgJx72 X73rJSvkPFNeGQEaJVYq DVEmgGfjui4sxA6yKz7+ SQNqqDS0tCW0dR2pOnUa QhI0EJczI678VoWk cXOzNtxyc3dun9tehLv7 IjIwJSIgdmFsaWduPSJ0 z0AnOv38F7RihNucn5Wp Xbd7jm86kLDbp5M5 fET4S4ExWHBzapzclDSx sNqfNZ8hAKZfohppSTTp jQ4fQBEaQ0r0EnFoIpZ6 YMwxI3OmjtT2JIDx jJBuDUNzzNKYoF6gioaa j8xbdfgyInMdRYRxJPq2 RYc7GHEbtCseRwXjLNW6 TdL5YZF9pNOntY8i eZtzdlfjdR3wCzp+UGh5 l8btsJDiIT9xrFD6NT57 ZS86nLRel1W2wHE5E6Ag ZGRpbmctcmlnaHQ6 XQXrVUIaoV15Kh9imVsc Ki1gGIHqYAP2RUSzePCf U0OilK7kVnFeRRKnTAKf R9XguAXyYJkuP844 DEmjZwK8DQFawkFeC3Yv SPSynNzvZvW7e6R9Tq7E UT75VB85DS92eIUvd8B5 kFK1K2LgDKSzjtem ruwquDD1UUWtRINaiN52 Ds7lmUxwRa7fDQYoTXB2 WHGcxTCuS6IhlM7zKsTm UYQbIYMzU9YxdKEq UCewR100YQndSlO4ZCVx jsWjT5WcBOOgoLgvZnK0 t5L0Pe9DWr16PJ90JO88 tHXdl7X1iNG2Y2Fv EKIqyffjymqdbKO1KOYh ULDpgR07Ls8elOttGo4x RCKrHZM8EKQrxKPlH8Cr yV0qOfOcHFZtRSYj P8NadDMhDTotK441LHcc YrT2MTEfgiIuT5SuAGVa uYumRwV0r3A2Nt8UOYcw nbm5B6PfTrkijYW+ KJ28OVVsTI24eCEjrFOz g3trjFk9AiKeRDCrFOL4 jGntMLxre5YzJHIpD45s xGHbh0Z1MGCmgSrv cHN (more content not included)... [facility] .eGFRon 07-12-2021 eGFR AA >60 Normal >=60 [facility] Comment on above: Result Comment: See comment. Performed By: #### M RSAPC #### [address] [address] eGFR Non-AA >60 Normal >=60 [facility] Comment on above: Result Comment: Stag es of Chronic Kidney Disease GFR Stage 3a Mild to moderate loss of kidney function 59 to 45 Stage 3b Moderate to severe loss of kidney function 44 to 33 Stage 4 Severe loss of kidney function 29 to 15 Stage 5 Kidney failure Less than 15 GFR calculated using the CKD-EPI Creatinine Equation (2009): eGFR = 141 X min(SCr/?, 1)? X max(SCr /?, 1)-1.209 X 0.993Age X 1.018 [if female] X 1.159 [if Black] Abbreviations/Units: eGFR (estimated glomerular filtration rate) = mL/min/1.73 m2 SCr (standardized serum creatinine) = mg/dL ? = 0.7 (females) or 0.9 (males) ? = -0.329 (females) or -0.411 (males) min = indicates the minimum of SCr/? or 1 max = indicates the maximum of SCr/? or 1 age = years Performed By: #### M RSAPC #### [address] [address] Basic Metabolic Profileon Anion gap [Moles/Vol] 13 mmol/L Normal 7-17 [facility] Comment on above: Performed By: #### M RSAPC #### [address] [address] Calcium [Mass/Vol] 8.7 mg/dL Normal 8.5-10.3 [place] Comment on above: Performed By: #### M RSAPC #### [address] [address] Chloride [Moles/Vol] 103 mmol/L Normal 98-110 [facility] Comment on above: Performed By: #### M RSAPC #### [address] [address] CO2 [Moles/Vol] 29 mmol/L Normal 22-32 [facility] Comment on above: Performed By: #### M RSAPC #### [address] [address] Creatinine [Mass/Vol] 0.81 mg/dL Normal 0.61-1.24 [facility] Comment on above: Performed By: #### M RSAPC #### [address] [address] Glucose [Mass/Vol] 146 mg/dL High 70-99 [place] Comment on above: Performed By: #### M RSAPC #### [address] [address] Potassium [Moles/Vol] 4.1 mmol/L Normal 3.4-4.8 [facility] Comment on above: Performed By: #### M RSAPC #### [address] [address] Sodium [Moles/Vol] 141 mmol/L Normal 133-142 [place] Comment on above: Performed By: #### M RSAPC #### [address] [address] Urea nitrogen [Mass/Vol] 17 mg/dL Normal 8-26 [facility] Comment on above: Performed By: #### M RSAPC #### [address] [address] Urea nitrogen/Creatinine [Mass ratio] 21.0 mg/mg High 10.0-20.0 [facility] Comment on above: Performed By: #### M RSAPC #### [address] [address] Hgb & Hcton 07-12-2021 Hematocrit (Bld) [Volume fraction] 39.2 % Low 41.0-53.0 [facility] Comment on above: Performed By: #### P TT #### [address] [address] Hemoglobin (Bld) [Mass/Vol] 13.4 g/dL Low 13.5-17.5 [facility] Comment on above: Performed By: #### P TT #### [facility] [address] [place] [address] Inpatient Clinical Summaryon 07-12-2021 Inpatient Clinical Summary [facility] [address] [place] [address] [address] Clinical Summary Person Information Name: Jaylen Montague Age: 71 Years : 1950 Sex: Male PCP: Matias Yoder MD Marital Status: Phone: PCP: [phone] Race: White Ethnicity: Unknown/Declined Language: Salvadorean Visit Id: Visit Reason: Speciality: Acuity: Enc Type: Observation Med Service: Surgery Arrival: 07/11/2021 09:48:52 Discharge: Dispo Type: Address: [address] [place] [id number] Diagnosis: 1:Primary osteoarthritis of left knee Discharged To: Home Treatments: Devices/Equipment: Professional Skilled Services: Special Services and Community Resources: Mode of Discharge Transportation: Discharge Orders Activity Restrictions Weight bearing status as tolerated Activity Restrictions Continue to use your walker, crutches or cane as instructed by your physical therapist. Your therapist will tell you when you can discontinue use of walking aids. For many patients walking aids are needed only for the first few days after surgery. Activity Restrictions Exercise twice a day using the exercises on the therapy instructions sheet. It is good to continue this exercise regimen indefinitely. Activity Restrictions Gradually increase your activity. Swimming and bike riding are great forms of exercise and are encouraged 3 to 4 weeks after surgery. Activity Restrictions Walking is the best form of exercise. Begin with 15 minutes 3-4 times per day. Increase your walking time as tolerated. Activity Restrictions Elevate leg on pillow at the ankle, above the level of the heart. Do not place anything under the knee for elevation. Activity Restrictions Continue to wear the anti-embolic (JAIDEN) stockings 22-24 hours per day for 4 weeks as tolerable. Discharge Patient Education Review and attach ORTHO Discharge Instructions Inpatient Discharge Special Instructions Bruising may occur in the thigh for knee replacement patients. Do not be alarmed if this occurs. Discharge Special Instructions Common symptoms after total joint replacement surgery include: redness, bruising, drainage, or swelling at the incision site. If there symptoms progressively worsen and do not subside after rest, elevating and icing, please contact your doctor. Discharge Special Instructions Apply ice to operative area 20 minutes per hour while awake. Apply cloth between ice and skin for protection. Discharge Special Instructions Maintain a reasonable weight to avoid stress on your hip or knee and other joints. Discharge Special Instructions Inform all doctors who are treating you, including your dentist that you have a total joint implant. Some long-term precautions may need to be taken. Discharge Special Instructions Antibiotic therapy is needed when dental work and some surgical procedures are done. Call your doctor before any dental or surgical appointments for instructions and prescription antibiotic. Discharge Special Instructions Your total joint implant may set off metal detectors. Inform appropriate security personnel that you have an implant. You will be able to obtain an appropriate card from your doctor's office (ask the nurse at your follow-up appointment). Discharge Special Instructions Avoid all dental procedures and cleanings for 90 days after your surgery. Discharge Special Instructions If your dentist feels manipulation of your gum/teeth may introduce bacteria into your blood, they will need to prescribe antibiotics. Discharge Special Instructions Watch for these warning sign/symptoms and call your doctor if any occurs: Trouble breathing or shortness of breath; Prolonged nausea or vomiting; Chills or fever above 101 degrees F; Pain getting worse or not being helped by pain medication. Discharge Wound Care Leave the Aquacel bandage in place for one week after your surgery (replace only as necessary for drainage with the replacement from the hospital) Discharge Wound Care After 1 week apply a light dressing daily until your sutures/kathy have been removed Follow up 07/12/21 8:17:00 EST, Provider: Rafael Avalos MD, 1 to 2 weeks Allergies No Known Allergies Functional Status: Sensory Deficits: None History of Falls: None Mobility Assistance Prior to Admission: ADLs: Independent Gait: Steady Ambulation Assist: Assistive Device: Special Orthopedic Devices: Current Level of Assistance for Self-Care/Mobility: Cognitive Status: Orientation: Orientation Assessment Oriented x 4 Level of Consciousness: Alert Characteristics of Speech: Clear Aspiration Risk: None Affect/Behavior: Appropriate, Cooperative Laboratory or Other Results This Visit (last charted value for your 07/11/2021 visit) Hematology 07/12/2021 6:13 AM Hct: 39.2 % -- Normal range between ( 41.0 and 53.0 ) Hgb: 13.4 g/dL -- Adri (more content not included)... Normal [facility] XR Knee 1 or 2 Views Lefton 07-12-2021 XR Knee 1 or 2 Views Left KNEE RADIOGRAPHS CLINICAL HISTORY: Left total knee arthroplasty. COMPARISON: None. TECHNIQUE: Left knee 2 views. FINDINGS: There is a left total knee arthroplasty which is well seated without periprosthesis lucency or fracture. Alignment appears normal. Gas is present within the surgical bed. Skin kathy are present. IMPRESSION: Uncomplicated left total knee arthroplasty with expected postoperative change. Final Dictated by: Daiana Reyes DO Dictated DT/TM: 07/12/2021 9:25 am Signed by: Daiana Reyes DO Signed (Electronic Signature): 07/12/2021 9:27 am (If Report Is Signed, Electronically Signed in Other Vendor System) Normal [facility] Operative Reporton Operative Report Indication for Surgery The patient is a 71-year-old female with endstage tricompartmental arthritis of bilateral knees. Underwent R TKA over the summer. Doing well with this. Patient has failed conservative management in the form of physical therapy, bracing, nonsteroidal anti-inflammatory, and previous injections. Patient has been having significant difficulty with activities of daily living due to his bilateral knee pain. I had a long discussion with them about treatment including total knee arthroplasty and the risks, benefits, and alternatives to surgery. After consideration of the options the patient has elected to proceed with left total knee arthroplasty. Informed consent was obtained in clinic. Preoperative Diagnosis Left knee djd Postoperative Diagnosis Left knee djd Operation Arthroplasty Knee Total Replacement-MIS, Left Surgeon(s) Britney ALBERTS, Rafael Yadav (Surgeon - Primary) Header Boss Lulú JUSTIN, Mady Fagan (Stock Chaser) Anesthesia Spinal Christine ALBERTS, Veronica Rosario (Software Programmer) Nery Gutierrez (Provider) Jessy Lozano (Provider) Estimated Blood Loss 30.0 mL Findings Severe L knee djd Specimen(s) None Complications None Technique Procedure Note: The patient was seen in the preoperative holding area at that location the operative site was signed by an operative surgeon. Risks, benefits, and alternatives to surgery are again were reviewed and informed consent was ensured. The patient was seen by anesthesia and appropriate anesthesia was provided. The patient was taken into the operating room, spinal anesthesia was provided. All bony prominences were padded. After anesthesia was ready the left lower extremity was prepped and draped in the usual sterile fashion a timeout was performed, insuring correct patient and extremity, and preoperative antibiotics were given. The left lower extremity was elevated and Esmarch was used for exsanguination and the tourniquet was placed. Began with a standard anterior approach to the knee in flexion. Skin was incised followed by Bovie electrocautery for superficial bleeders. Full-thickness medial and lateral flaps were developed. The location of the medial parapatellar arthrotomy was then marked and was completed using Bovie electrocautery. The contents were suctioned out. Normal-appearing synovial fluid was seen. We then began with a proximal medial tibial peel using a Garcia and electrocautery. The knee was then placed in extension. We then proceeded up to the suprapatellar pouch where synovial tissue was excised. We then proceeded around laterally where the lateral patellofemoral ligament was released. We then proceeded up to the anterior fat pad which was and divided and then electrocautery used to excise. At that point the patella was everted and the knee was flexed. We began that the distal femur. The anterior cruciate ligament and PCL were removed. [place]'s line was marked. The visionaire cut block guide was then pinned dialing the appropriate resection and rotation based off preoperative MRI. This fit anatomically on the distal end of the femur. Soft tissues are protected using medial and lateral Homans. The distal femur was then cut. The femur was then measured to be a size 7. This coordinated with our preoperative templating. The size 7, 5 in 1 cut block was then placed with dialed and rotation. Soft tissues were protected and the cuts were made. After this was done we then proceeded to the proximal tibia. A 2 prong retractor was placed to sublux the tibia anteriorly. We then excised the remaining medial and lateral meniscus. We then placed the visionaire tibial guide and this fit anatomically over the tibia. This was pinned in place. A drop lindsay was then used to ensure excellent alignment. This was centered on the second metatarsal and divided the malleoli. Esmeralda was ensured to be correct. After this was done the soft tissues again were protected and a proximal tibial cut was completed. The soft tissue protection was removed and the knee was placed in extension. A symmetric flexion and extension gap was then measured. We then proceeded with a laminar upholsterer inside both on the medial and lateral side any excess bone was removed and posterior osteophytes are removed at that time. Local anesthetic was injected around the posterior capsule. The tibia was then trialed with the tibial tray lined up along the medial third of the tubercle in appropriate rotation. Initially a size 6 was trialed- excellent proximal tibial coverage. Once the size was deemed appropriate the tray was placed and pinned followed by a drop lindsay to ensure excellent alignment followed by application of the femoral trial. Femoral trial was placed followed by drill and mallet for the box cut. A trial articular insert was then placed and the knee was placed through range of motion. Full flexion and extension was achieved. Once we were happy with the size of the articular insert and stability of the kne (more content not included)... Normal [facility] CoV2 Agon 07-10-2021 Employed in healthcare? No [facility] Comment on above: Performed By: #### C [id number] #### [place] [address] Group care resident? Unknown [facility] Comment on above: Performed By: #### C [id number] #### [place] [address] In ICU? No Normal [facility] Comment on above: Performed By: #### C [id number] #### [place] [id number] status? Not Applicable [facility] Comment on above: Performed By: #### C [id number] #### [place] [address] SARS-CoV-2 (COVID-19) RNA KAYA+probe Ql (Unsp spec) Normal Negative [facility] Comment on above: Result Comment: * Ne gative (Non-Reactive) * Negative results from patients with symptom onset outside of one to six days should be treated as presumptive. A false-negative test result may occur if the level of viral antigen in a sample is below the detection limit of the test or if the sample was collected or transported improperly; therefore, a negative test result does not eliminate the possibility of SARS-CoV-2 infection. Negative results should not be used as the sole basis for treatment or patient management decisions, including infection control decisions. Negative results should be considered in the context of a patient?s recent exposures, history and the presence of clinical signs and symptoms consistent with COVID-19. Negative ADDITIONAL INFORMATION: Testing performed on the [employer]00 using the SARS-CoV-2 Antigen test. Results are for the identification of SARS-CoV-2 nucleocapsid antigen. The [employer] SARS-CoV-2 Antigen test can detect both viable and non-viable SARS-CoV-2 material. The [employer] SARS-CoV-2 Antigen test performance depends on antigen load and may not correlate with other diagnostic methods performed on the same specimen. The performance of this test has not been evaluated for use in patients without signs and symptoms of respiratory infection. Test results should be considered in the context of all available clinical and diagnostic information, including patient history and other test results. In the [place], the [employer] SARS-CoV-2 Antigen test is only for use under the Food and Drug Administration?s Emergency Use Authorization. HCP Fact Sheet: https://www.fda.gov/media/032525/download Patient Fact Sheet: https://www.fda.gov/media/920925/download Performed By: #### C [id number] #### [address] [address] SARS-CoV-2 (COVID-19) RNA KAYA+probe Ql (Unsp spec) No Normal [facility] Comment on above: Performed By: #### C [id number] #### [address] [address] SARS-CoV-2 (COVID-19) RNA KAYA+probe Ql (Unsp spec) Unknown Normal [facility] Comment on above: Performed By: #### C [id number] #### [facility] [address] [place] [address] Symptomatic as defined by CDC? No Normal [facility] Comment on above: Performed By: #### C [id number] #### [facility] [address] [place] [address] Outside Recordson 06-26-2021 Outside Records [id number] #1.00OTGTIFF Normal [facility] C MRSA Screenon 06-20-2021 C MRSA Screen Negative [facility] Comment on above: Performed By: #### 1 [id number] #### [facility] (DEFAULT) [address] [place] [address] Provider Orderson 06-20-2021 Provider Orders [id number] #1.00OTGTIFF Normal [facility] .Auto Diff 1on 06-19-2021 Auto Quay % 9 % Normal -[address] [facility] Comment on above: Performed By: #### 2 404004, 21314344, 2406497, 5887928577, 4269985735, 1735392, 9329104 #### [facility] (DEFAULT) [address] [place] [address] Baso Abs# 0.0 x10 Normal 0.0-0.[address] [facility] Comment on above: Performed By: #### 2 650911, 19495030, 5775335, 4588821781, 2068200159, 7123199, 3517685 #### [facility] (DEFAULT) [address] [place] [address] Basophils/100 WBC (Bld) 0.1 % Low 0.2-2.[address] [facility] Comment on above: Performed By: #### 2 102812, 31619763, 2994169, 2109458041, 1909461808, 5829839, 1753179 #### [facility] (DEFAULT) [address] [place] [address] Eos Abs# 0.1 x10 Normal 0.0-0.[address] [facility] Comment on above: Performed By: #### 2 128296, 78763997, 8716543, 8722137617, 8219686406, 1826237, 9818674 #### [facility] (DEFAULT) [address] [place] [address] Eosinophils/100 WBC (Bld) 1.0 % Normal 0.9-4.[address] [facility] Comment on above: Performed By: #### 2 063599, 16428526, 0600726, 8064155870, 4501680786, 5629042, 1763801 #### [facility] (DEFAULT) [address] [place] [address] Lymph Abs# 1.0 x10 Low 1.3-2.[address] [facility] Comment on above: Performed By: #### 2 304408, 71262724, 4390307, 5957540092, 4389482337, 7240508, 3965748 #### [facility] (DEFAULT) [address] [place] [address] Lymphocytes/100 WBC (Bld) 14 % Normal 14-[address] [facility] Comment on above: Performed By: #### 2 184320, 37779442, 4240607, 0229345969, 2708808751, 4907809, 4803197 #### [facility] (DEFAULT) [address] [place] [address] Quay Abs# 0.6 x10 Normal 0.0-0.[address] [facility] Comment on above: Performed By: #### 2 596986, 97154243, 4952672, 6937923752, 3276221653, 1565196, 7320795 #### [facility] (DEFAULT) [address] [place] [address] Neut Abs# 5.4 x10 Normal 1.5-9.[address] [facility] Comment on above: Performed By: #### 2 231864, 67329655, 4639562, 0989948959, 3453858568, 6141017, 5222737 #### [facility] (DEFAULT) [address] [place] [address] Neutrophils/100 WBC (Bld) 76 % Normal 44-[address] [facility] Comment on above: Performed By: #### 2 722509, 40630351, 2653057, 9824592685, 4002120266, 1598359, 9161363 #### [facility] (DEFAULT) [address] [place] [address] CBC w/ Auto Diffon Erythrocyte distribution width (RBC) [Ratio] 13.7 % Normal 11.5-15.[address] [facility] Comment on above: Performed By: #### 2 748193, 76384639, 8892623, 8245853932, 7858930251, 7365858, 1879824 #### [facility] (DEFAULT) [address] [place] [address] Hematocrit (Bld) [Volume fraction] 41.9 % Normal 34.8-51.[address] [facility] Comment on above: Performed By: #### 2 803205, 59970418, 2471138, 3966319136, 7184448554, 6683769, 5337521 #### [facility] (DEFAULT) [address] [place] [address] Hemoglobin (Bld) [Mass/Vol] 13.8 g/dL Normal 11.8-17.[address] [facility] Comment on above: Performed By: #### 2 721270, 20744820, 2899430, 1577999652, 8712692908, 5592157, 8836864 #### [facility] (DEFAULT) [address] [place] [address] Instr WBC 7.1 x10 Invalid Interpretation Code [facility] Comment on above: Performed By: #### 2 720046, 74137764, 9356826, 3456024243, 6304224508, 0980234, 6097057 #### [facility] (DEFAULT) [address] [place] [address] Man Diff? Auto Normal [facility] Comment on above: Performed By: #### 2 127595, 58429646, 7418218, 1702225155, 3081969819, 8476285, 8981085 #### [facility] (DEFAULT) [address] [place] [address] MCH (RBC) [Entitic mass] 30 pg Normal 24-[address] [facility] Comment on above: Performed By: #### 2 606873, 04208672, 9924261, 7020788822, 8158414139, 2020591, 7203242 #### [facility] (DEFAULT) [address] [place] [address] MCHC (RBC) [Mass/Vol] 33 g/dL Normal 26-[address] [facility] Comment on above: Performed By: #### 2 045501, 10039729, 4368961, 6711342873, 4122875392, 4707498, 6567882 #### [facility] (DEFAULT) [address] [place] [address] MCV (RBC) [Entitic vol] 92 fL Normal 81-[address] [facility] Comment on above: Performed By: #### 2 719272, 43314764, 8852116, 4912713039, 3555899439, 7260837, 2294162 #### [facility] (DEFAULT) [address] [place] [address] Platelet 201 x10 Normal 138-[address] [facility] Comment on above: Performed By: #### 2 800463, 13282176, 3795608, 4382909458, 0165739259, 7865261, 4292097 #### [facility] (DEFAULT) [address] [place] [address] Platelet mean volume (Bld) [Entitic vol] 9.7 fL Normal 6.3-10.[address] [facility] Comment on above: Performed By: #### 2 683793, 91093886, 1148568, 3578600821, 5546406473, 2885899, 1075451 #### [facility] (DEFAULT) [address] [place] [address] RBC 4.58 x10 Normal 3.70-5.[address] [facility] Comment on above: Performed By: #### 2 377900, 52847134, 0348137, 9772027807, 1333424302, 1642281, 2186233 #### [facility] (DEFAULT) [address] [place] [address] WBC 7.1 x10 Normal 3.5-10.[address] [facility] Comment on above: Performed By: #### 2 196777, 20250172, 8486496, 8231567029, 1669108039, 7432860, 6048081 #### [facility] (DEFAULT) [address] [place] [address] CMP Standardon 06-19-2021 eGFR Non AA >60 Invalid Interpretation Code [facility] Comment on above: Performed By: #### 2 324882, 85199302, 7299961, 9920889625, 4450047199, 5883221, 4043769 #### [facility] (DEFAULT) [address] [place] [address] eGFR AA >60 Invalid Interpretation Code [facility] Comment on above: Result Comment: Cafeteria Helper jesse Kidney disease could be indicated at eGFRs of less than 60 ml/min/1.73m2. Kidney Failure is indicated at less than 15 ml/min/1.73m2 Performed By: #### 2 365709, 77407512, 5724573, 3738361491, 0521690473, 5484360, 6838435 #### [facility] (DEFAULT) [address] [place], [place] [address] Albumin [Mass/Vol] 4.3 g/dL Normal 3.5-5.0 [facility] Comment on above: Performed By: #### 2 230542, 24999661, 3392151, 9799241637, 8905995915, 9359457, 4558047 #### [facility] (DEFAULT) [address] [place] [address] Albumin/Globulin [Mass ratio] 1.5 {ratio} Normal 1.4-2.[address] [facility] Comment on above: Performed By: #### 2 313004, 40020274, 2360291, 1952350475, 2294018970, 1664425, 4529645 #### [facility] (DEFAULT) [address] [place] [address] Alk Phos 91 IU/L Normal 32-[address] [facility] Comment on above: Performed By: #### 2 094219, 29491235, 7708806, 5107308802, 9932562909, 8872717, 7382979 #### [facility] (DEFAULT) [address] [place] [address] ALT [Catalytic activity/Vol] 20.0 U/L Normal 17.0-63.[address] [facility] Comment on above: Performed By: #### 2 241273, 34447767, 0287376, 8485050862, 8196658295, 4808385, 6772680 #### [facility] (DEFAULT) [address] [place] [address] Anion gap [Moles/Vol] 17.0 mmol/L Normal 5.0-19.[address] [facility] Comment on above: Performed By: #### 2 914533, 04861587, 9521597, 1692952639, 7667914083, 6498762, 0704492 #### [facility] (DEFAULT) [address] [place] [address] AST [Catalytic activity/Vol] 20 U/L Normal 15-[address] [facility] Comment on above: Performed By: #### 2 381753, 60288016, 4737079, 6592802688, 4814947747, 2049601, 4579924 #### [facility] (DEFAULT) [address] [place] [address] Bili Total 0.6 mg/dL Normal 0.3-1.[address] [facility] Comment on above: Performed By: #### 2 733540, 53768733, 3594805, 9748766068, 7746308211, 1059752, 1827822 #### [facility] (DEFAULT) [address] [place] [address] Calcium [Mass/Vol] 9.1 mg/dL Normal 8.9-10.3 [facility] Comment on above: Performed By: #### 2 411327, 55349873, 8766339, 5148978047, 6374158179, 9955984, 1377670 #### [facility] (DEFAULT) [address] [place] [address] Chloride [Moles/Vol] 98 mmol/L Low 101-111 [facility] Comment on above: Performed By: #### 2 815922, 57632466, 3763243, 0867619869, 6725261832, 7646327, 6307486 #### [facility] (DEFAULT) [address] [place] [address]91 CO2 [Moles/Vol] 26 mmol/L Normal 21-[address] [facility] Comment on above: Performed By: #### 2 286513, 66839048, 4797666, 4263005384, 5687034889, 1323824, 1560069 #### [facility] (DEFAULT) [address] [place] [address] Creatinine [Mass/Vol] 0.80 mg/dL Low 0.90-1.[address] [facility] Comment on above: Performed By: #### 2 494166, 42093467, 9410943, 1550676015, 5704908824, 0376156, 2445897 #### [facility] (DEFAULT) [address] [place] [address] Globulin (S) [Mass/Vol] 2.8 g/dL Normal 1.5-4.[address] [facility] Comment on above: Performed By: #### 2 125813, 08169355, 9698525, 2939195348, 7933730795, 8351534, 4690478 #### [facility] (DEFAULT) [address] [place] [address] Glucose [Mass/Vol] 121.0 mg/dL High 74.0-118.0 [facility] Comment on above: Performed By: #### 2 330170, 87855102, 3380061, 3452729596, 8780398295, 7527913, 7633579 #### [facility] (DEFAULT) [address] [place] [address] Osmolality 277 mOsm/L Invalid Interpretation Code [facility] Comment on above: Performed By: #### 2 020004, 42794170, 9463895, 1039644246, 9884892545, 6963842, 7998834 #### [facility] (DEFAULT) [address] [place] [address] Potassium [Moles/Vol] 3.6 mmol/L Normal 3.6-5.[address] [facility] Comment on above: Performed By: #### 2 810870, 53545852, 9469713, 1888080261, 3510890217, 3101306, 8600483 #### [facility] (DEFAULT) [address] [place] [address] Protein [Mass/Vol] 7.1 g/dL Normal 6.5-8.1 [facility] Comment on above: Performed By: #### 2 876373, 44150905, 0935919, 5872147992, 1265683183, 1933469, 9967006 #### [facility] (DEFAULT) [address] [place] [address] Sodium [Moles/Vol] 137.0 mmol/L Normal 136.0-144.0 [facility] Comment on above: Performed By: #### 2 667261, 87062267, 4604154, 1364876559, 9597210465, 4129678, 9434725 #### [facility] (DEFAULT) [address] [place] [address] 50591 Urea nitrogen [Mass/Vol] 17 mg/dL Normal 8-[address] [facility] Comment on above: Performed By: #### 2 114447, 30809483, 0474464, 2936083624, 5992008795, 2945937, 6474786 #### [facility] (DEFAULT) [address] [place] [address] 96681 Urea nitrogen/Creatinine [Mass ratio] 21.0 mg/mg High 4.6-16.[address] [facility] Comment on above: Performed By: #### 2 889068, 26920968, 3051296, 9572624228, [id number], [id number], [id number] #### [facility] (DEFAULT) [address] [place] [address] CRPon 06-19-2021 CRP 2.2 mg/dL High <=0.[address] [facility] Comment on above: Performed By: #### 2 118071, [id number], 7660592, [id number], [id number], 8209195, 3188439 #### [facility] (DEFAULT) [address] [place] [address] HgbA1c Standardon 06-19-2021 .Hb 13.9 Invalid Interpretation Code [facility] Comment on above: Performed By: #### 2 410307, 38163143, 8044244, [id number], [id number], 2535542, 8216283 #### [facility] (DEFAULT) [address] [place] [address] .Hgb A1c 0.55 g/dL Invalid Interpretation Code [facility] Comment on above: Performed By: #### 2 781201, 54769825, 8327895, 9121770079, 1689332465, 3287203, 5560868 #### [facility] (DEFAULT) [address] [place] [address] Glucose [Mass/Vol] 119 mg/dL Invalid Interpretation Code [facility] Comment on above: Performed By: #### 2 964570, 24033606, 5093997, 1623922236, 3768256189, 5583214, 8319375 #### [facility] (DEFAULT) [address] [place] [address] HbA1c (Bld) [Mass fraction] 5.8 % Normal 4.6-6.[address] [facility] Comment on above: Performed By: #### 2 142465, 22309034, 9716642, 4129279677, 2248345921, 6968602, 1078384 #### [facility] (DEFAULT) [address] [place] [address] PT/PTTon 06-19-2021 INR Coag (PPP) [Relative time] 0.98 {INR} Normal 0.91-1.[address] [facility] Comment on above: Performed By: #### 2 300494, 35777577, 3028408, 3747749404, 4156985589, 8528624, 6239840 #### [facility] (DEFAULT) [address] [place] [address] PT 10.6 second(s) Normal 9.7-11.[address] [facility] Comment on above: Performed By: #### 2 982002, 70308100, 6110403, 9706284490, 4750208621, 9439445, 6961091 #### [facility] (DEFAULT) [address] [place] [address] PTT 25 second(s) Normal 25-[address] [facility] Comment on above: Performed By: #### 2 298425, 97006278, 6005302, 2381517884, 4900088863, 2199852, 9229317 #### [facility] (DEFAULT) [address] [place] [address] Sed Rateon 06-19-2021 Sed Rate 10 mm/hr Normal 0-[address] [facility] Comment on above: Performed By: #### 2 386287, 14192426, 3830878, 6710153995, 1303359526, 8828344, 9214350 #### [facility] (DEFAULT) [address] [place] [address] UA Standardon 06-19-2021 Breakpoint UA Normal [facility] Comment on above: Performed By: #### 2 842089, 01927009, 0070722, 3000956151, 0628492553, 4610065, 1737712 #### [facility] (DEFAULT) [address] [place] [address] Color (U) Yellow Normal [facility] Comment on above: Performed By: #### 2 473162, 51279911, 9890967, 4083092652, 0252576795, 2385551, 4483072 #### [facility] (DEFAULT) [address] [place] [address] Glucose (U) [Mass/Vol] Negative Normal [facility] Comment on above: Performed By: #### 2 958789, 38220966, 4533634, 1939527840, 5235040414, 5983404, 0551092 #### [facility] (DEFAULT) [address] [place] [address] Ketones Ql (U) TRACE Normal [facility] Comment on above: Performed By: #### 2 039794, 49886217, 5995581, 0306232999, 8837916286, 3891489, 3472725 #### [facility] (DEFAULT) [address] [place] [address] UA Bilirubin Negative [facility] Comment on above: Performed By: #### 2 605206, 08691038, 8147308, 8908122151, 4187179115, 9508566, 4541043 #### [facility] (DEFAULT) [address] [place] [address] UA Blood Negative Normal NEGATIVE [facility] Comment on above: Performed By: #### 2 121627, 56769622, 5655513, 7084606288, 2525332665, 2404715, 7948679 #### [facility] (DEFAULT) [address] [place] [address] UA Clarity CLEAR Normal CLEAR [facility] Comment on above: Performed By: #### 2 260518, 63600250, 4538024, 2341292203, 2838127794, 3575615, 1359126 #### [facility] (DEFAULT) [address] [place] [address] UA Leuk Est Negative Normal NEGATIVE [facility] Comment on above: Performed By: #### 2 967210, 38624733, 0026242, 9258274070, 2614770042, 8088938, 9000429 #### [facility] (DEFAULT) [address] [place] [address] UA Nitrite Negative Normal NEGATIVE [facility] Comment on above: Performed By: #### 2 747466, 13768415, 7634961, 2347441062, 6281133827, 4357291, 4974289 #### [facility] (DEFAULT) [address] [place] [address] UA pH 5.5 Normal 5-[address] [facility] Comment on above: Performed By: #### 2 079481, 16067505, 1630748, 9613527443, 0204660310, 1491387, 9273409 #### [facility] (DEFAULT) [address] [place] [address] UA Protein Negative Normal NEGATIVE [facility] Comment on above: Performed By: #### 2 734059, 26835733, 1681531, 1255267356, 5119473061, 4814948, 6516779 #### [facility] (DEFAULT) [address] [place] [address] UA Spec Grav 1.025 Normal 1.001-1.[address] [facility] Comment on above: Performed By: #### 2 383207, 86530224, 2579785, 5223162021, 8076929494, 9541958, 1968731 #### [facility] (DEFAULT) [address] [place] [address] UA Urobilinogen 0.2 mg/dL Normal 0.2-1.[address] [facility] Comment on above: Performed By: #### 2 010228, 08588357, 2531678, 2345056661, 2679620206, 7288954, 6242925 #### [facility] (DEFAULT) [address] [place] [address] Urine Source Voided Normal [facility] Comment on above: Performed By: #### 2 519946, 20106496, 9359207, 2603781259, 8508931313, 8260461, 8213031 #### [facility] (DEFAULT) [address] [place] [address] XR Chest 2 Viewson 1 XR Chest 2 Views EXAM: XR CHEST 2 VIEWS HISTORY: Unilateral primary osteoarthritis, left knee COMPARISON: None. TECHNIQUE: Frontal and lateral films are done chest. FINDINGS: Trachea, mediastinum and heart size are unremarkable. The lungs are clear and well aerated. No infiltrate or nodule or effusion or pneumothorax is noted. Mild degenerative changes noted of the lower thoracic spine. IMPRESSION: Nonacute two-view chest. Final Dictated by: Harry Brown Dictated DT/TM: 06/19/21 3:48 Signed (Electronic Signature): Harry Brown 06/19/21 3:49 pm Technologist: KODAK [facility] .eGFRon 03-01-2021 eGFR Non-AA >60 Normal >=60 [facility] Comment on above: Result Comment: Stag es of Chronic Kidney Disease GFR Stage 3a Mild to moderate loss of kidney function 59 to 45 Stage 3b Moderate to severe loss of kidney function 44 to 33 Stage 4 Severe loss of kidney function 29 to 15 Stage 5 Kidney failure Less than 15 GFR calculated using the CKD-EPI Creatinine Equation (2009): eGFR = 141 X min(SCr/?, 1)? X max(SCr /?, 1)-1.209 X 0.993Age X 1.018 [if female] X 1.159 [if Black] Abbreviations/Units: eGFR (estimated glomerular filtration rate) = mL/min/1.73 m2 SCr (standardized serum creatinine) = mg/dL ? = 0.7 (females) or 0.9 (males) ? = -0.329 (females) or -0.411 (males) min = indicates the minimum of SCr/? or 1 max = indicates the maximum of SCr/? or 1 age = years Performed By: #### E GFR #### [address] [address] eGFR AA >60 Normal >=60 [facility] Comment on above: Result Comment: See comment. Performed By: #### E GFR #### [address] [address] Basic Metabolic Profileon Anion gap [Moles/Vol] 14 mmol/L Normal 7-17 [facility] Comment on above: Performed By: #### M RSAPC #### [address] [address] Calcium [Mass/Vol] 8.2 mg/dL Low 8.5-10.3 [place] Comment on above: Performed By: #### M RSAPC #### [address] [address] Chloride [Moles/Vol] 100 mmol/L Normal 98-110 [facility] Comment on above: Performed By: #### M RSAPC #### [address] [address] CO2 [Moles/Vol] 26 mmol/L Normal 22-32 [facility] Comment on above: Performed By: #### M RSAPC #### [address] [address] Creatinine [Mass/Vol] 0.72 mg/dL Normal 0.61-1.24 [facility] Comment on above: Performed By: #### M RSAPC #### [address] [address] Glucose [Mass/Vol] 134 mg/dL High 70-99 [place] Comment on above: Performed By: #### M RSAPC #### [address] [address] Potassium [Moles/Vol] 4.2 mmol/L Normal 3.4-4.8 [facility] Comment on above: Performed By: #### M RSAPC #### [address] [address] Sodium [Moles/Vol] 136 mmol/L Normal 133-142 [place] Comment on above: Performed By: #### M RSAPC #### [address] [address] Urea nitrogen [Mass/Vol] 12 mg/dL Normal 8-26 [facility] Comment on above: Performed By: #### M RSAPC #### [address] [address] Urea nitrogen/Creatinine [Mass ratio] 16.7 mg/mg Normal 10.0-20.0 [facility] Comment on above: Performed By: #### M RSAPC #### [place] [id number] Hgb & Hcton 03-01-2021 Hematocrit (Bld) [Volume fraction] 37.5 % Low 41.0-53.0 [facility] Comment on above: Performed By: #### M RSAPC #### [place] [address]5340 Hemoglobin (Bld) [Mass/Vol] 13.1 g/dL Low 13.5-17.5 [facility] Comment on above: Performed By: #### M RSAPC #### [place] [id number] Inpatient Clinical Summaryon 03-01-2021 Inpatient Clinical Summary [address] [address] [place] [address] Clinical Summary Person Information Name: Jaylen Montague Age: 70 Years : 1950 Sex: Male PCP: Matias Yoder MD Marital Status: Phone: PCP: [phone] Race: White Ethnicity: Unknown/Declined Language: Salvadorean Visit Id: Visit Reason: Speciality: Acuity: Enc Type: Observation Med Service: Surgery Arrival: 02/28/2021 09:25:14 Discharge: Dispo Type: Address: [address] [place] [address] Diagnosis: Unilateral primary osteoarthritis, right knee Discharged To: Home Treatments: Devices/Equipment: Professional Skilled Services: Special Services and Community Resources: Mode of Discharge Transportation: Discharge Orders Activity Restrictions Weight bearing status as tolerated. Activity Restrictions Continue to use your walker, crutches or cane as instructed by your physical therapist. Your therapist will tell you when you can discontinue use of walking aids. For many patients walking aids are needed only for the first few days after surgery. Activity Restrictions Exercise twice a day using the exercises on the therapy instructions sheet. It is good to continue this exercise regimen indefinitely. Activity Restrictions Gradually increase your activity. Swimming and bike riding are great forms of exercise and are encouraged 3 to 4 weeks after surgery. Activity Restrictions Walking is the best form of exercise. Begin with 15 minutes 3-4 times per day. Increase your walking time as tolerated. Activity Restrictions Elevate leg on pillow at the ankle, above the level of the heart. Do not place anything under the knee for elevation. Activity Restrictions Continue to wear the anti-embolic (JAIDEN) stockings 22-24 hours per day for 4 weeks as tolerable. Discharge Patient Education Review and attach ORTHO Discharge Instructions Inpatient Discharge Special Instructions Bruising may occur in the thigh for knee replacement patients. Do not be alarmed if this occurs. Discharge Special Instructions Common symptoms after total joint replacement surgery include: redness, bruising, drainage, or swelling at the incision site. If there symptoms progressively worsen and do not subside after rest, elevating and icing, please contact your doctor. Discharge Special Instructions Apply ice to operative area 20 minutes per hour while awake. Apply cloth between ice and skin for protection. Discharge Special Instructions Maintain a reasonable weight to avoid stress on your hip or knee and other joints. Discharge Special Instructions Inform all doctors who are treating you, including your dentist that you have a total joint implant. Some long-term precautions may need to be taken. Discharge Special Instructions Antibiotic therapy is needed when dental work and some surgical procedures are done. Call your doctor before any dental or surgical appointments for instructions and prescription antibiotic. Discharge Special Instructions Your total joint implant may set off metal detectors. Inform appropriate security personnel that you have an implant. You will be able to obtain an appropriate card from your doctor's office (ask the nurse at your follow-up appointment). Discharge Special Instructions Avoid all dental procedures and cleanings for 90 days after your surgery. Discharge Special Instructions If your dentist feels manipulation of your gum/teeth may introduce bacteria into your blood, they will need to prescribe antibiotics. Discharge Special Instructions Watch for these warning sign/symptoms and call your doctor if any occurs: Trouble breathing or shortness of breath; Prolonged nausea or vomiting; Chills or fever above 101 degrees F; Pain getting worse or not being helped by pain medication. Discharge Wound Care Leave the Aquacel bandage in place for one week after your surgery (replace only as necessary for drainage with the replacement from the hospital) Discharge Wound Care After 1 week apply a light dressing daily until your sutures/kathy have been removed Allergies No Known Allergies Functional Status: Sensory Deficits: None History of Falls: None Mobility Assistance Prior to Admission: ADLs: Independent Gait: Unable to assess Ambulation Assist: Assistive Device: Gait belt, Walker Special Orthopedic Devices: Current Level of Assistance for Self-Care/Mobility: Cognitive Status: Orientation: Orientation Assessment Oriented x 4 Level of Consciousness: Alert Characteristics of Speech: Clear Aspiration Risk: None Affect/Behavior: Appropriate, Calm, Cooperative Laboratory or Other Results This Visit (last charted value for your 02/28/2021 visit) Diagnostic Radiology 02/28/2021 2:40 PM XR Knee 1 or 2 Views Right: XR Knee 1 or 2 Views Right Measurements: Height: Weight: Blood Pressure: 16 (more content not included)... Normal [facility] Operative Reporton Operative Report Indication for Surgery The patient is a 70-year-old female with endstage tricompartmental arthritis of bilateral knees. Patient has failed conservative management in the form of physical therapy, bracing, nonsteroidal anti-inflammatory, and previous injections. Patient has been having significant difficulty with activities of daily living due to his bilateral knee pain. I had a long discussion with them about treatment including total knee arthroplasty and the risks, benefits, and alternatives to surgery. After consideration of the options the patient has elected to proceed with right total knee arthroplasty. Informed consent was obtained in clinic. Preoperative Diagnosis osteoarthritis knees bilateral severe Right knee DJD Postoperative Diagnosis Rght knee DJD Operation Arthroplasty Knee Total Replacement-MIS, Right Surgeon(s) Britney ALBERTS, Rafael Yadav (Surgeon - Primary) Header Boss Anusha Gabriel (Stock Chaser) Anesthesia Spinal Christine ALBERTS, Veronica Rosario (Software Programmer) Alison Walter (Provider) Estimated Blood Loss 30.0 mL Specimen(s) None Complications None Technique Procedure Note: The patient was seen in the preoperative holding area at that location the operative site was signed by an operative surgeon. Risks, benefits, and alternatives to surgery are again were reviewed and informed consent was ensured. The patient was seen by anesthesia and appropriate anesthesia was provided. The patient was taken into the operating room, spinal anesthesia was provided. All bony prominences were padded. After anesthesia was ready the right lower extremity was prepped and draped in the usual sterile fashion a timeout was performed, insuring correct patient and extremity, and preoperative antibiotics were given. The right lower extremity was elevated and Esmarch was used for exsanguination and the tourniquet was placed. Began with a standard anterior approach to the knee in flexion. Skin was incised followed by Bovie electrocautery for superficial bleeders. Full-thickness medial and lateral flaps were developed. The location of the medial parapatellar arthrotomy was then marked and was completed using Bovie electrocautery. The contents were suctioned out. Normal-appearing synovial fluid was seen. We then began with a proximal medial tibial peel using a Garcia and electrocautery. The knee was then placed in extension. We then proceeded up to the suprapatellar pouch where synovial tissue was excised. We then proceeded around laterally where the lateral patellofemoral ligament was released. We then proceeded up to the anterior fat pad which was and divided and then electrocautery used to excise. At that point the patella was everted and the knee was flexed. We began that the distal femur. The anterior cruciate ligament and PCL were removed. [place]'s line was marked. The visionaire cut block guide was then pinned dialing the appropriate resection and rotation based off preoperative MRI. This fit anatomically on the distal end of the femur. Soft tissues are protected using medial and lateral Homans. The distal femur was then cut. The femur was then measured to be a size 7. This coordinated with our preoperative templating. The size 7, 5 in 1 cut block was then placed with dialed and rotation. Soft tissues were protected and the cuts were made. After this was done we then proceeded to the proximal tibia. A 2 prong retractor was placed to sublux the tibia anteriorly. We then excised the remaining medial and lateral meniscus. We then placed the visionaire tibial guide and this fit anatomically over the tibia. This was pinned in place. A drop lindsay was then used to ensure excellent alignment. This was centered on the second metatarsal and divided the malleoli. Esmeralda was ensured to be correct. After this was done the soft tissues again were protected and a proximal tibial cut was completed. The soft tissue protection was removed and the knee was placed in extension. A symmetric flexion and extension gap was then measured. We then proceeded with a laminar upholsterer inside both on the medial and lateral side any excess bone was removed and posterior osteophytes are removed at that time. Local anesthetic was injected around the posterior capsule. The tibia was then trialed with the tibial tray lined up along the medial third of the tubercle in appropriate rotation. Initially a size 7 was trialed- excellent proximal tibial coverage. Once the size was deemed appropriate the tray was placed and pinned followed by a drop lindsay to ensure excellent alignment followed by application of the femoral trial. Femoral trial was placed followed by drill and mallet for the box cut. A trial articular insert was then placed and the knee was placed through range of motion. Full flexion and extension was achieved. Once we were happy with the size of the articular insert and stability of the knee we then proceeded to the patella. The patella was then sized using a caliper followe (more content not included)... Normal [facility] .UA Microscp Aon 02-04-2021 UA Hyline Cast Qual 3-5 Normal Negative [facility] Comment on above: Performed By: #### C [id number] #### [place] [address] UA Mucus Present Abnormal Absent [facility] Comment on above: Performed By: #### C [id number] #### [address] [address] UA RBC Quant 0 /HPF Normal 0-5 [facility] Comment on above: Performed By: #### C [id number] #### [address] [address] UA WBC Quant 0 /HPF Normal 0-5 [facility] Comment on above: Performed By: #### C [id number] #### [place] [id number] .eGFRon 02-04-2021 eGFR AA >60 Normal >=60 [facility] Comment on above: Order Comment: Order added by Discern rule Result Comment: See comment. Performed By: #### P TT #### [place] [id number] eGFR Non-AA >60 Normal >=60 [facility] Comment on above: Order Comment: Order added by Discern rule Result Comment: Stag es of Chronic Kidney Disease GFR Stage 3a Mild to moderate loss of kidney function 59 to 45 Stage 3b Moderate to severe loss of kidney function 44 to 33 Stage 4 Severe loss of kidney function 29 to 15 Stage 5 Kidney failure Less than 15 GFR calculated using the CKD-EPI Creatinine Equation (2009): eGFR = 141 X min(SCr/?, 1)? X max(SCr /?, 1)-1.209 X 0.993Age X 1.018 [if female] X 1.159 [if Black] Abbreviations/Units: eGFR (estimated glomerular filtration rate) = mL/min/1.73 m2 SCr (standardized serum creatinine) = mg/dL ? = 0.7 (females) or 0.9 (males) ? = -0.329 (females) or -0.411 (males) min = indicates the minimum of SCr/? or 1 max = indicates the maximum of SCr/? or 1 age = years Performed By: #### P TT #### [place] [id number] CBCon 02-04-2021 Erythrocyte distribution width (RBC) [Ratio] 13.2 % Normal 11.6-14.8 [facility] Comment on above: Performed By: #### P TT #### [place] [id number] Hematocrit (Bld) [Volume fraction] 44.0 % Normal 41.0-53.0 [facility] Comment on above: Performed By: #### P TT #### [address] [address] Hemoglobin (Bld) [Mass/Vol] 15.2 g/dL Normal 13.5-17.5 [facility] Comment on above: Performed By: #### P TT #### [address] [address] MCH (RBC) [Entitic mass] 31.7 pg Normal 27.0-35.0 [facility] Comment on above: Performed By: #### P TT #### [address] [address] MCHC 34.5 % Normal 31.0-37.0 [facility] Comment on above: Performed By: #### P TT #### [address] [address] MCV (RBC) [Entitic vol] 91.8 fL Normal 80.0-100.0 [facility] Comment on above: Performed By: #### P TT #### [address] [address] Platelet 174 x10*3/mcL Normal 150-350 [facility] Comment on above: Performed By: #### P TT #### [address] [address] Platelet mean volume (Bld) [Entitic vol] 8.7 fL Normal 6.7-10.6 [facility] Comment on above: Performed By: #### P TT #### [address] [address] RBC 4.79 x10*6/mcL Normal 4.30-5.80 [facility] Comment on above: Performed By: #### P TT #### [address] [address] WBC 5.8 x10*3/mcL Normal 4.5-11.0 [facility] Comment on above: Performed By: #### P TT #### [address] [address] CMPon 02-04-2021 Anion gap [Moles/Vol] 19 mmol/L High 7-17 [facility] Comment on above: Performed By: #### C OMP #### [address] [address] Calcium [Mass/Vol] 9.0 mg/dL Normal 8.5-10.3 [place] Comment on above: Performed By: #### C OMP #### [address] [address] Chloride [Moles/Vol] 103 mmol/L Normal 98-110 [facility] Comment on above: Performed By: #### C OMP #### [address] [address] CO2 [Moles/Vol] 24 mmol/L Normal 22-32 [facility] Comment on above: Performed By: #### C OMP #### [address] [address] Glucose [Mass/Vol] 119 mg/dL High 70-99 [place] Comment on above: Performed By: #### C OMP #### [address] [address] Potassium [Moles/Vol] 4.1 mmol/L Normal 3.4-4.8 [facility] Comment on above: Performed By: #### C OMP #### [address] [address] Sodium [Moles/Vol] 142 mmol/L Normal 133-142 [place] Comment on above: Performed By: #### C OMP #### [address] [address] Albumin [Mass/Vol] 4.5 g/dL Normal 3.2-4.9 [place] Comment on above: Performed By: #### C OMP #### [address] [address] Albumin/Globulin [Mass ratio] 1.6 {ratio} Normal 1.1-2.2 [facility] Comment on above: Performed By: #### C OMP #### [facility] [address] [place] [address] Alk Phos 80 IU/L Normal 32-91 [facility] Comment on above: Performed By: #### C OMP #### [address] [place] [address] ALT [Catalytic activity/Vol] 26 U/L Normal 17-63 [facility] Comment on above: Performed By: #### C OMP #### [address] [address] AST [Catalytic activity/Vol] 22 U/L Normal 15-41 [facility] Comment on above: Performed By: #### C OMP #### [place] [id number] Bili Total 0.6 mg/dL Normal 0.3-1.2 [facility] Comment on above: Performed By: #### C OMP #### [address] [address] Creatinine [Mass/Vol] 0.80 mg/dL Normal 0.61-1.24 [facility] Comment on above: Performed By: #### C OMP #### [place] [id number] Protein [Mass/Vol] 7.4 g/dL Normal 6.5-8.1 [place] Comment on above: Performed By: #### C OMP #### [place] [id number] Urea nitrogen [Mass/Vol] 18 mg/dL Normal 8-26 [facility] Comment on above: Performed By: #### C OMP #### [place] [id number] Urea nitrogen/Creatinine [Mass ratio] 22.5 mg/mg High 10.0-20.0 [facility] Comment on above: Performed By: #### C OMP #### [address] [address] CRPon 02-04-2021 CRP 0.25 mg/dL Normal 0.00-0.75 [facility] Comment on above: Result Comment: CRP measurement is useful for assessment of non-specific INFLAMMATORY RESPONSE to infection or injury AND is a sensitive MARKER of ACUTE INFLAMMATION including CARDIAC RISK ASSESSMENT. CARDIAC patients with elevated CRP are POTENTIALLY at a HIGHER RISK OF FUTURE CARDIAC EVENTS. Performed By: #### M RSAPC #### [address] [address] ESRon 02-04-2021 Sed Rate 8 mm/hr Normal 0-23 [facility] Comment on above: Performed By: #### P TT #### [address] [address] MRSA, PCRon 02-04-2021 Methicillin Resistant Staph aurus(MRSA) Negative Normal [facility] Comment on above: Result Comment: The [employer] Xpert MRSA Assay is a qualitative in vitro diagnostic test designed for rapid detection of Methicillin-Resistant Staphylococcus aureus (MRSA) from nasal swabs in patients at risk for nasal colonization.The test utilizes automated real-time polymerase chain reaction (PCR) to detect MRSA DNA,because the detection of MRSA is dependent on the number of organisms present. A positive test result does not necessarily indicate the presence of viable organism. It is however,presumptive for the presence of MRSA.Test results might be affected by concurrent antibiotic therapy. Therefore, therapeutic success or failure cannot be assessed using this test because DNA might persist following antimicrobial therapy. Mutations or polymorphisms in primer or probe binding regions may affect detection of new or unknown MRSA variants resulting in a false negative result. Results from the Xpert MRSA Assay should be interpreted in conjunction with other laboratory and clinical data available to the clinician. Performed By: #### M RSAPC #### [address] [address] PTon 02-04-2021 INR Coag (PPP) [Relative time] 1.0 {INR} Normal <=3.5 [facility] Comment on above: Result Comment: INR has no normal range. INR Therapeutic range is: 2.0-3.0 (AF, CVA, TIAs, DVT prophylaxis, acute DVT) 2.5-3.5 (Mech heart valves, recurrent thrombosis/emboli) Performed By: #### P TT #### [address] [address] PT Coag (PPP) [Time] 10.8 s Normal 9.4-12.1 [facility] Comment on above: Performed By: #### P TT #### [address] [address] PTTon 02-04-2021 aPTT Coag (Bld) [Time] 22.0 s Normal 20.2-27.0 [facility] Comment on above: Performed By: #### P TT #### [address] [address] UA w Culture if Indon 2020 Color (U) Yellow Normal [facility] Comment on above: Performed By: #### P TT #### [facility] [address] [place] [address], [place] [address] Glucose (U) [Mass/Vol] Negative Normal Negative [facility] Comment on above: Performed By: #### P TT #### [facility] [address] [place] [address], [place] [address] Ketones Ql (U) Negative Normal Negative [facility] Comment on above: Performed By: #### P TT #### [facility] [address] [place] [address], [place] [address] UA Blood Negative Normal Negative [facility] Comment on above: Performed By: #### P TT #### [facility] [address] [place] [address], [place] [address] UA Clarity Clear Normal [facility] Comment on above: Performed By: #### P TT #### [address] [place] [address] UA Leukocyte Esterase Negative Normal Negative [facility] Comment on above: Performed By: #### P TT #### [address] [place] [address] UA Nitrite Negative Normal Negative [facility] Comment on above: Performed By: #### P TT #### [facility] [address] [place] [address], [place] [address] UA pH 5.0 Normal 4.5 - 7.8 [facility] Comment on above: Performed By: #### P TT #### [facility] [address] [place] [address], [place] [address] UA Protein Negative Normal Negative [facility] Comment on above: Performed By: #### P TT #### [facility] [address] [place] [address], [place] [address] UA Source Clean Catch Normal [facility] Comment on above: Performed By: #### P TT #### [address] [place] [address] UA Spec Grav 1.024 Normal 1.003-1.035 [facility] Comment on above: Performed By: #### P TT #### [address] [place] [address] UA Urobilinogen 0.2 mg/dL Normal 0.2 - 1.0 [facility] Comment on above: Performed By: #### P TT #### [place] [id number] [place] [address] Urobilinogen (U) [Mass/Vol] Negative Normal Negative [facility] Comment on above: Performed By: #### P TT #### [address] [address] Consent Formson 11-19-2020 Consent Forms [id number] #1.00OTGTIFF [facility] Coding Summaryon 10-25-2020 Coding Summary HTMLBase 64 KqifapabWUp9mSo+PGhl YWQ+JE4FLQYlZ12tjTDk gI0HS6wJWU9QYXFICVCJ HK1GTF6xtWH6MUqpE2Lr biAv SynalILnTO42ECl4GCY9 oDadXDiqzI4woUQfE1o8 OvIxSQ67wN65RHslUBZa SoI2SsWiihjlqJDy W5chFhLxiPTeHfg+PHRh YmxlIHdpZHRoPScxMDAl EhLbiQfkNX1eNj4dJOXh LWNvbGxhcHNlOiBj a2rxNPUwGZeyGG5plDzq Z1AkcPE1AFYtu3k1Mc94 dHI+PJHoTBS7tVmsADun i315QyKfq9vpDQC0 kJSlDJqxVNM7H96xx6Q1 NWGoSGKlHAM5pNM3tP1c fQavuzsbG5RvvCYoYmH9 ZPW4zQGdjS4dbOhi heukfU4ePsq+N62FXN4U LLNAFA7VYxp1T8NmXmpi dHI+FR19VXGmHK66eJXd jKEzq6fycLu2UnRh JUKlRQP4uAwgQPjcb1Sx ROMyA37jyTZvs1Y6TBHh eAvkwAVkMdLsrID5fY9z CCmpeftqr2dftrje Nzzbv7kums41kY17H91g XDffFPMmSKV2GYCiPGAv wGadli1llR5sGp7+IDxj y8hmc7fvuWe7EtPa XMErevPeqRlmBVM5s8Tj Ru00P1WwiYxvd7PnRmz2 ap71yLQid9D0wRZ4XWuj OQTrpG7jQWyaMgK9 TCWoXdEdlP33uGOmBTsq Ad7diLmhtGkaQM7eEBGw ggzcGANgjZ5uJNIhrUKo bJewQQ4zOBQsstgx g966FfPnUIR9WVUqfMVn F4LqhK7wCmAvCLVrODAy X2WirCYvSAhrN443XUaj GuJ0SJQujpBmI1Dq BQMufOvwSrN8c0M6Jd2D r0XixebsREG6UJmyHTOd LnB3JyMuBfR9Y4VwLwa5 YLBbeAhmIL3eF0Na PKEugpxcpgzqcRS3SOPk QPDnqL51aHMpCHvpHw6s k5W2d948YSQmXOXdiQ35 Hx5mjAcbCKDhnQOR gV1lserdt7mtglotNbZu RYKgNDo2DUc9JADgkFiw CkGrJIE8WjQ2KFO7kYVi sP5dmTiegopmrZ0x Oyc+N00gyO5gPNF5KVW1 tgpnJXAqejDtGE73DT95 O4ZxPqffrLWviSA+PGRp utYstJgkLG0gUnWt o5uui0DlYFxxT5PpIWYc OSsaBiy7LQEvUSR8pXG3 aV6fGIOyFBdxo2J0iEP1 N6PhbjGnmj9ak9gx SEWfWRiqN08zeEDqu9K1 ZRSwzON3LNKxkXkeFhYs hG51Afp+CNVlyFsso7Oy Xmcih5rnr4uahJk1 IjMwJSIgdmFsaWduPSJ0 v3RfUg59M01tKKszFPHx UAMcGSHkTMBksGmang5h eH4aYj3+PGNvbCB3 tOH2qB8iXSAvJmJ8FZya G705ZuSyrOBhAjypw1pq v8pomFh7XxWzYZJcqfCu vJgqSBF7q0XuQq92 I15oQNfgIAEbRXRkLMLq HYKsbTdwry5lnB5eWh4+ BS6lu0kmhg96sB35nKF+ MTGpSTS1aLglMXkw DOZunB4pWCeyGeW6CUVd QeAfqM24tQSyGCxaAi3j yQortKcdZG1tLZEbtlpz y833DjCty7vxWHIi oVQfHQiuPUV6G55rg7S1 VNXqORXlHEX2tWA8dH2i bGlnbjogbGVmdDsgdmVy pCsqLRpcCVszW173 IHRvcDsnPlBhdGllbnQg KlTnNXc5F6ObCot0ULQy hXdoTO8pcGClAGbmDw9w nXosjCuwTE9gUBKw cifwk392YlTgc0ccKMKk dTYpMCwfNJO6U81qu6Q3 SKKuHHSrONR2nJX8iV9m bGlnbjogbGVmdDsg jcQgsMweFSnhXXkqE829 IHRvcDsnPkJpcnRoIERh rCQ9JC91RR95eONog9O8 pXO8H2QdWFJqueke mnwxcHQ6YACqKYNweM41 Ye8stUwpUt4mUUJdVPQ8 TOHuxTHyI6GezZ0aIdEt HAHvAVAvF1ZfgVAb CFpqP062XUijGwV0IEQy nqNjG5SdCCPyvNzkZcJ2 h1I0Pl6NY1S0DB18QZ29 sDXak1Q4gQT0T4Bq QMSpglytoewniOW8XLRw DMQotM49Wt6ybPrzGa7a XAHeDWG3ODRuxJYoF5Nr oF9zRoAyERMmVIXk L3AqwISyIOjnJ406YLxr SeC3JTPpqcTvW9QuLPMe uGlsErE3h7N5Rg3RLHz7 KQ20UE17fKEso0Y0 cCL6M4TgAAMzhpatwmri mQT0ZGQmLOYysB75Vs4i tMxcBc1sHXVyRTD6TRRl cEJeI3TcmP5qXnMo UHKtWBZhI0IfiKLzEXkw G633VQlkRcU7PRWubjAj L1FbHZPtwRiqIbR3e6N9 Ev3XRYPsYA95RLD6 tCX4CM40KL25M4NjFxqj dGFibGU+PHRhYmxlIHdp ZHRoPScxMDAlJyBzdHls OZ0hHl4dAHWrCSIh zSnhlKOzSuCyg8hnSJBb WWqkQO1eiIgmV4RkeKP2 NUExr6a0Zk04P67qC5Or dXA+YZCymXZ7pVD2 zA7oPdHhLrL9DFegI543 RxTzgKFkHfylc6klb4sd vIs8IxA8QONnsiMljPqc VCQ7n3RqXv00P55a IHdpZHRoPSIxNSUiIHZh qWljjz3ekU1oMj5+PGNv hVR5jRL3vD7tZeWgLxT2 WCobO925OhXbkDLw Xwoeo3vhb2jbzNb7QdDt XNHfevZgdNlwNKJ2y2Es In21M1HliJcnw2BzUhn2 jj54oOIjr1X9mSJ8 J6CdWZPxocmstHMvqUuv QY8gZLHrpcygXDXfaX8y AHUvH5b0FoAwRqA2DGly D6PkpvD3TPFjsXRy LXfkRKM2Q65jc6T7HCCl IWThUGD8dTX7dA5yiDnc bjogbGVmdDsgdmVydGlj RNawWUgdV371MMKr lCjfARHroO3oIFWcjZLi oDxkVY9zQXGfwbgpRzZW IXsuAQDSPMTGCF4zDPqb dGQ+ONEpVQH6bCem ADdvOIJasO4sSHMpZ8z9 SgSlRtX4ZOaaI4IwISDz hzfdWl68kA4lLpRlEaQ2 AFauK1XbqsW1EFRp nTYyXKseTLL4L41uw9X1 WJIdATZvKTF0yFB6mS5l bGlnbjogbGVmdDsgdmVy sRsqGWwbDCfvV195 CZTapZhrHmVyWeW4FbB1 FDv8F6ViRom7AXNchOlj XN4sfPTiYEgiSq3boVke hYhxJR3nNDPawcan BEIpaF7gCPVvhRBzsVgm ZB2zMFNrwqjmv795TiOv VOP5KOLhhCSmO4UcvK5l BcEtSBEtGPGiO8Ko zVXqCQiiV474BZelLiO6 UBFgggXbG9FbRIHbtRpw DzR3o4A2Wi19ChHFOAYi czwvdGQ+PHRkIHN0 uJrwPCuoEUEldD0gGVZd A7b7HjJeIjU0ACgnP6Kz KVKfzrnnAc51qC1xWfUk WzL8JAttQ3VsogI5 NVTrgBOtCNnjQSB7E00h a4G2ZVZiIQRpQCK1wGU3 xQ6lvGjwzqbniNDxeJuf dmVydGljYWwtYWxp A389EXMsrGnmGb6ZVCD7 S7IxIpn8BKAgnQiiVG1u bUQvWQlkDa2jwBgoiZyn BD1pPILhmivwCNJt iV7xLBPvhXXtfZjdCI9p KMEpbjytx324PaZdGDI2 JALfsADvF0MloF4yUzFk YKPeEHNbA4SuqPGn AFvrB448CFsqNdH2DXRa fbPnU8GdSZWszVncInD3 g2U3Xg4AHZI6jmCznvzy J0A2tWU8hVGihQna dGQ+UM43fs68M8UfYzma Eya9TCJbGXR2rXD8lW2q POHhVGzvk5K8yCJ4Q8Kq piBsvd7vj3kqXTWq TXuhQ21xqJXyk8Z8OCZa gRP5KJJnzDqmDnNgvQ67 Oyc+AVEykVusr1YaKfrp u5eco4yhaHu8CqFy NIGqhhWywTchPFA2z8Mb Hd26N19qMAaqZDHvISWu UURqMJRmvHyhhr9bjV0t Ii8+WHOnqSD3uCN9 pD5yIxGpXdL2QPlyL698 BcDsrEFdJosml0olw3ur rIt3OjKmNOPvwaDzbBws BGF0n5SeDm22K4Ee oIsdi2CvSzi2hz11cHUu e0J6aRS9Y9WhZYHuaglp oUVdlTnzVN4sFXLwfuar UYSsmK0oEVWoJ8u6 OfUvEoE5TYabJ5UumjN2 CQTvbTVgAHDnmDQEkT5p umqfw0wlyikoHyGeWKIt TUo9TJe0BXZfgQuw SuBgRYF1SlA3LWW0bEDo eD5mjMkbehourR4vGms+ HOf0o0uslQNnLB0glQA1 ZL19SS81lVFyq6R2 zMZ2H1BzQQSvrfljfnfc wQB5INWbFZYseT32Ub8p aXmmCl4rCDQoCUE9JSDe iBVpA1LopG8pKwMw HVEnDGRnR5GtyIKoUNzk K155HCvaSlQ9TZFggiUo N5GhUVEkyGgjSkE9b3E0 Tg8LCJ02IB67LB73 vVMsf8M9gWO8C1BtTOJx jtlkxqublMT6WVAiETPo nJ31Nq3lrRfcJj2lJBVk WTL8YTZtjKNhJ0Xh sW6jMjEjRDBzTXSeX6Ir sLJbYIugG410AVsiDiP7 PTQytrSyH1DeKCYuuPon OtK1w8M0Rd2SYc68 ZO00EJ45aCYxt9U8sOO2 W1CwKSDhtnsowheeyKA1 RMFwVBJtzY66Lo6jqHmr Os5iKGIsYQC4CVBw eEGfW9JqxC3uRuFoXCEh WRCvG3AizQBaOBzdX003 QYbsHsV6KRPaioNeO6Or AOKfuXyeLeB9h1M3 Rv5AUDznkth0T6VtAafw dHI+DR69LQCoXT42eYHk eWFyo8laeVd4HtKxYVYj FRF2wRisEYxbf1Ir ZXI (more content not included)... [facility] Consent Formson 10-19-2020 Consent Forms [id number] #[facility] Consent Forms [id number] #1.00[facility] Coding Summaryon 08-03-2020 Coding Summary CODING DATE: 08/03/2020 [facility] STATUS: Home PAYOR: Medicare [facility] ADMIT DX: REASON FOR VISIT DX: R05 Cough FINAL DX: PRINCIPAL: U07.1 COVID-19 SECONDARY: R05 Cough PYMT PROC APC STAT DESCRIPTION DOCTOR NAME DATE NOTE: The code number assigned matches the documented diagnosis and / or procedure in the patient's chart. However, the narrative phrase printed from the coding software may appear abbreviated, or result in slightly different terminology. Coded By: Jodi Lam Date Saved: 08/03/2020 08:32 am [facility] Vital Signs Date Time Vital Sign Value Performing Clinician Facility 04-18-2024 14:37-0400 Body temperature 97.59 [degF] Edmundo Anguiano MD Work Phone: [facility] 04-18-2024 14:37-0400 Body weight 118 kg Edmundo Anguiano MD Work Phone: [facility] 04-18-2024 14:37-0400 Diastolic blood pressure 81 mm[Hg] Edmundo Anguiano MD Work Phone: [facility] 04-18-2024 14:37-0400 Heart rate 71 /min Edmundo Anguiano MD Work Phone: [facility] 04-18-2024 14:37-0400 Respiratory rate 16 /min Edmundo Anguiano MD Work Phone: [facility] 04-18-2024 14:37-0400 SaO2% (BldA) [Mass fraction] 99 % Edmundo Anguiano MD Work Phone: [facility] 04-18-2024 14:37-0400 Systolic blood pressure 138 mm[Hg] Edmundo Anguiano MD Work Phone: [facility] 04-11-2024 14:31-0400 Body temperature 97.39 [degF] BATSHEVA Rausch MD Work Phone: [facility] 04-11-2024 14:31-0400 Body weight 112.7 kg BATSHEVA Rausch MD Work Phone: [facility] 04-11-2024 14:31-0400 Diastolic blood pressure 93 mm[Hg] BATSHEVA Rausch MD Work Phone: [facility] 04-11-2024 14:31-0400 Heart rate 64 /min BATSHEVA Rausch MD Work Phone: [facility] 04-11-2024 14:31-0400 Respiratory rate 18 /min BATSHEVA Rausch MD Work Phone: [facility] 04-11-2024 14:31-0400 SaO2% (BldA) [Mass fraction] 99 % BATSHEVA Rausch MD Work Phone: [facility] 04-11-2024 14:31-0400 Systolic blood pressure 158 mm[Hg] BATSHEVA Rausch MD Work Phone: [facility] 04-04-2024 14:41-0400 Body temperature 97.39 [degF] BATSHEVA Rausch MD Work Phone: [facility] 04-04-2024 14:41-0400 Body weight 117.3 kg BATSHEVA Rausch MD Work Phone: [facility] 04-04-2024 14:41-0400 Diastolic blood pressure 86 mm[Hg] BATSHEVA Rausch MD Work Phone: [facility] 04-04-2024 14:41-0400 Heart rate 66 /min BATSHEVA Rausch MD Work Phone: [facility] 04-04-2024 14:41-0400 Respiratory rate 18 /min BATSHEVA Rausch MD Work Phone: [facility] 04-04-2024 14:41-0400 SaO2% (BldA) [Mass fraction] 99 % BATSHEVA Rausch MD Work Phone: [facility] 04-04-2024 14:41-0400 Systolic blood pressure 150 mm[Hg] BATSHEVA Rausch MD Work Phone: [facility] 03-28-2024 15:58-0400 Body temperature 97.59 [degF] BATSHEVA Rausch MD Work Phone: [facility] 03-28-2024 15:58-0400 Body weight 117 kg BATSHEVA Rausch MD Work Phone: [facility] 03-28-2024 15:58-0400 Diastolic blood pressure 83 mm[Hg] BATSHEVA Rausch MD Work Phone: [facility] 03-28-2024 15:58-0400 Heart rate 60 /min BATSHEVA Rausch MD Work Phone: [facility] 03-28-2024 15:58-0400 Respiratory rate 16 /min BATSHEVA Rausch MD Work Phone: [facility] 03-28-2024 15:58-0400 SaO2% (BldA) [Mass fraction] 98 % BATSHEVA Rausch MD Work Phone: [facility] 03-28-2024 15:58-0400 Systolic blood pressure 128 mm[Hg] BATSHEVA Rausch MD Work Phone: [facility] 03-21-2024 14:03-0400 Body temperature 98.01 [degF] BATSHEVA Rausch MD Work Phone: [facility] 03-21-2024 14:03-0400 Body weight 116.6 kg BATSHEVA Rausch MD Work Phone: [facility] 03-21-2024 14:03-0400 Diastolic blood pressure 85 mm[Hg] BATSHEVA Rausch MD Work Phone: [facility] 03-21-2024 14:03-0400 Heart rate 67 /min BATSHEVA Rausch MD Work Phone: [facility] 03-21-2024 14:03-0400 Respiratory rate 16 /min BATSHEVA Rausch MD Work Phone: [facility] 03-21-2024 14:03-0400 SaO2% (BldA) [Mass fraction] 97 % BATSHEVA Rausch MD Work Phone: [facility] 03-21-2024 14:03-0400 Systolic blood pressure 136 mm[Hg] BATSHEVA Rausch MD Work Phone: [facility] 02-24-2024 14:03-0400 Body temperature 98.1 [degF] BATSHEVA Rausch MD Work Phone: [facility] 02-24-2024 14:03-0400 Body weight 120.6 kg BATSHEVA Rausch MD Work Phone: [facility] 02-24-2024 14:03-0400 Diastolic blood pressure 82 mm[Hg] BATSHEVA Rausch MD Work Phone: [facility] 02-24-2024 14:03-0400 Heart rate 63 /min BATSHEVA Rausch MD Work Phone: [facility] 02-24-2024 14:03-0400 Respiratory rate 18 /min BATSHEVA Rausch MD Work Phone: [facility] 02-24-2024 14:03-0400 SaO2% (BldA) [Mass fraction] 95 % BATSHEVA Rausch MD Work Phone: [facility] 02-24-2024 14:03-0400 Systolic blood pressure 134 mm[Hg] BATSHEVA Rausch MD Work Phone: [facility] 02-17-2024 14:36-0400 Body temperature 98.6 [degF] James VALVERDE [facility] 02-17-2024 14:36-0400 Diastolic blood pressure 76 mm[Hg] James VALVERDE [facility] 02-17-2024 14:36-0400 Heart rate 63 /min James VALVERDE [facility] 02-17-2024 14:36-0400 Respiratory rate 16 /min James VALVERDE [facility] 02-17-2024 14:36-0400 Systolic blood pressure 137 mm[Hg] James VALVERDE [facility] 02-10-2024 10:34-0400 Blood Pressure Location James VALVERDE [facility] 02-10-2024 10:34-0400 Diastolic blood pressure 70 mm[Hg] James VALVERDE [facility] 02-10-2024 10:34-0400 Heart rate 62 /min James VALVERDE [facility] 02-10-2024 10:34-0400 Respiratory rate 16 /min James VALVERDE [facility] 02-10-2024 10:34-0400 Systolic blood pressure 134 mm[Hg] James VALVERDE [facility] 01-29-2024 11:52-0400 Diastolic blood pressure 63 mm[Hg] DO Reed Fritz Work Phone: [facility] 01-29-2024 11:52-0400 Heart rate 59 /min DO Reedanson Fritz Work Phone: [facility] 01-29-2024 11:52-0400 Respiratory rate 16 /min DO Reed Fritz Work Phone: [facility] 01-29-2024 11:52-0400 SaO2% (BldA) [Mass fraction] 96 % DO Reed Fritz Work Phone: [facility] 01-29-2024 11:52-0400 Systolic blood pressure 102 mm[Hg] DO Reed Fritz Work Phone: [facility] 01-29-2024 10:01-0400 Body height 182.88 cm DO Reed Fritz Work Phone: [facility] 01-29-2024 10:01-0400 Body mass index (BMI) [Ratio] 35.9 kg/m2 DO Reed Fritz Work Phone: [facility] 01-29-2024 10:01-0400 Body weight 120 kg DO Reedanson Fritz Work Phone: [facility] 01-29-2024 09:15-0400 Body temperature 97.9 [degF] DO Reedanson Fritz Work Phone: [facility] 12-23-2023 12:42-0400 Body temperature 98.6 [degF] James VALVERDE [facility] 12-23-2023 12:42-0400 Diastolic blood pressure 74 mm[Hg] James VALVERDE [facility] 12-23-2023 12:42-0400 Respiratory rate 14 /min James VALVERDE [facility] 12-23-2023 12:42-0400 Systolic blood pressure 130 mm[Hg] James VALVERDE [facility] 05-27-2023 11:04-0400 Blood Pressure Location James VALVERDE [facility] 05-27-2023 11:04-0400 Diastolic blood pressure 73 mm[Hg] James VALVERDE [facility] 05-27-2023 11:04-0400 Heart rate 60 /min James VALVERDE [facility] 05-27-2023 11:04-0400 Systolic blood pressure 128 mm[Hg] James VALVERDE [facility] 06-25-2022 13:16-0400 Blood Pressure Location James VALVERDE [facility] 06-25-2022 13:16-0400 Diastolic blood pressure 70 mm[Hg] James VALVERDE [facility] 06-25-2022 13:16-0400 Heart rate 65 /min James VALVERDE [facility] 06-25-2022 13:16-0400 Respiratory rate 16 /min James VALVERDE [facility] 06-25-2022 13:16-0400 Systolic blood pressure 131 mm[Hg] James VALVERDE [facility] 04-23-2022 12:13-0400 Blood Pressure Location James VALVERDE [facility] 04-23-2022 12:13-0400 Diastolic blood pressure 90 mm[Hg] James VALVERDE [facility] 04-23-2022 12:13-0400 Heart rate 62 /min James VALVERDE [facility] 04-23-2022 12:13-0400 Systolic blood pressure 154 mm[Hg] James [facility] Encounters Encounter Date Encounter Type Care Provider Facility Start: 12-28-2024 ambulatory James R VALVERDE [facility] Start: 08-31-2024 ambulatory James R VALVERDE [facility] Start: 06-08-2024 ambulatory James R VALVERDE [facility] Start: 05-18-2024 ambulatory James R VALVERDE [facility] Start: 05-12-2024 ambulatory James R VALVERDE Facili ty:[id number] Start: 05-02-2024 End: 05-05-2024 Patient encounter procedure Lisa Rausch MD Work Phone: [facility] Start: 05-02-2024 End: 05-05-2024 Rad[facility] Oncology Note Lisa Rausch MD Work Phone: [facility] Comment on above: Treatment Planning Start: 04-28-2024 End: 04-29-2024 [facility]cology Note Lisa Rausch MD Work Phone: [facility] Comment on above: Simulation Note Start: 04-28-2024 End: 04-29-2024 ambulatory Lisa RAUSCH Facility:[facility] Start: 04-28-2024 End: 04-29-2024 Patient encounter procedure Lisa Rausch MD Work Phone: [facility] Comment on above: Malignant neoplasm o f prostate (HCC) (Primary Dx) Start: 04-22-2024 End: 04-22-2024 ambulatory Lisa RAUSCH Facility:[facility] Start: 04-22-2024 End: 05-05-2024 Patient encounter procedure Lisa Rausch MD Work Phone: [facility] Start: 04-22-2024 End: 05-05-2024 Radiation Oncology Note Lisa Rausch MD Work Phone: [facility] Comment on above: Completion Note Start: 04-21-2024 End: 04-21-2024 ambulatory Lisa RAUSCH Facility:[facility] Start: 04-20-2024 End: 04-20-2024 ambulatory Lisa RAUSCH Facility:[facility] Start: 04-19-2024 End: 04-19-2024 ambulatory Lisa RAUSCH Facility:[facility] Start: 04-18-2024 End: 04-18-2024 Patient encounter procedure Edmundo Anguiano MD Work Phone: [facility] Comment on above: Malignant neoplasm o f prostate (HCC) (Primary Dx) Start: 04-18-2024 End: 04-18-2024 ambulatory EDMUNDO ANGUIANO Facility:[facility] Start: 04-15-2024 End: 04-15-2024 ambulatory Lisa RAUSCH Facility:[facility] Start: 04-14-2024 End: 04-14-2024 ambulatory Lisa RAUSCH Facility:[facility] Start: 04-13-2024 End: 04-13-2024 ambulatory Lisa RAUSCH Facility:[facility] Start: 04-12-2024 End: 04-12-2024 ambulatory Lisa RAUSCH Facility:[facility] Start: 04-11-2024 End: 04-11-2024 Patient encounter procedure Lisa Rausch MD Work Phone: [facility]cology Comment on above: Malignant neoplasm o f prostate (HCC) (Primary Dx) Start: 04-11-2024 End: 04-11-2024 ambulatory Lisa RAUSCH Facility:[facility] Start: 04-08-2024 End: 04-08-2024 ambulatory Lisa RAUSCH Facility:[facility] Start: 04-07-2024 End: 04-07-2024 ambulatory Lisa RAUSCH Facility:[facility] Start: 04-06-2024 End: 04-06-2024 ambulatory Lisa RAUSCH Facility:[facility] Start: 04-05-2024 End: 04-05-2024 ambulatory Lisa RAUSCH Facility:[facility] Start: 04-04-2024 End: 04-04-2024 Patient encounter procedure Lisa Rausch MD Work Phone: Radiation Oncology Comment on above: Malignant neoplasm o f prostate (HCC) (Primary Dx) Start: 04-04-2024 End: 04-04-2024 ambulatory Lisa RAUSCH Facility:[facility] Start: 04-01-2024 End: 04-01-2024 ambulatory Lisa RAUSCH Facility:[facility] Start: 03-31-2024 End: 03-31-2024 ambulatory Lisa RAUSCH Facility:[facility] Start: 03-31-2024 End: 03-31-2024 Patient encounter procedure Lab/[place] [facility] Work Phone: Radiation Oncology Comment on above: Malignant neoplasm o f prostate (HCC) Start: 03-30-2024 End: 03-30-2024 ambulatory Lisa RAUSCH Facility:[facility] Start: 03-29-2024 End: 03-29-2024 ambulatory Lisa RAUSCH Facility:[facility] Start: 03-28-2024 End: 03-28-2024 Patient encounter procedure Lisa Rausch MD Work Phone: Radiation Oncology Comment on above: Malignant neoplasm o f prostate (HCC) (Primary Dx) Start: 03-28-2024 End: 03-28-2024 ambulatory Lisa YVES RAUSCH Facility:[facility] Start: 03-25-2024 End: 03-25-2024 ambulatory Lisa YVES TAMEKADEVONTE Facility:[facility] Start: 03-24-2024 End: 03-24-2024 ambulatory Lisa ENGLISHDEVONTE Facility:[facility] Start: 03-23-2024 End: 03-23-2024 ambulatory Lisa ENGLISHDEVONTE Facility:[facility] Start: 03-22-2024 End: 03-22-2024 ambulatory Lisa YVESLIUDMILA NEGRONAmbrosio Facility:[facility] Start: 03-22-2024 Patient encounter procedure [facility] Provider [facility] Start: 03-21-2024 End: 03-21-2024 ambulatory Lisa YVES RAUSCH Facility:[facility] Start: 03-21-2024 End: 03-21-2024 Patient encounter procedure Lisa Rausch MD Work Phone: Radiation Oncology Comment on above: Malignant neoplasm o f prostate (HCC) (Primary Dx) Start: 03-09-2024 End: 03-09-2024 Patient encounter procedure Lisa Rausch MD Work Phone: Radiation Oncology Comment on above: Malignant neoplasm o f prostate (HCC) (Primary Dx) Start: 03-09-2024 Radiation Oncology Note Lisa Rausch MD Work Phone: Radiation Oncology Comment on above: Simulation Note Treatment Planning Start: 03-09-2024 End: 03-09-2024 ambulatory Lisa RAUSCH Facility:[facility] Start: 03-09-2024 End: 03-09-2024 Subsequent hospital visit by physician Lisa Rausch MD Work Phone: Radiology [facility] Start: 03-08-2024 Telephone encounter Lisa Rausch MD Work Phone: Radiation Oncology Comment on above: Covid Positive Start: 02-24-2024 End: 02-24-2024 ambulatory Jorge Raygoza LPN Radiation Oncology Comment on above: Patient Education Start: 02-24-2024 End: 02-24-2024 Patient encounter procedure Lisa Rausch MD Work Phone: Radiation Oncology Comment on above: Malignant neoplasm o f prostate (HCC) (Primary Dx) Start: 02-23-2024 End: 02-23-2024 ambulatory BATSHEVA RAUSCH Facility:[facility] Start: 02-23-2024 End: 02-23-2024 Subsequent hospital visit by physician Arrival Time Radiology Work Phone: Radiology Pet CT Start: 02-18-2024 Telephone encounter G Yves Rausch MD Work Phone: Cancer Appts Comment on above: Nm Pet Request Start: 02-17-2024 End: 02-17-2024 ambulatory James VALVERDE Facility:[facility] Start: 02-17-2024 End: 02-17-2024 Patient encounter procedure James VALVERDE [facility] Start: 02-10-2024 End: 02-10-2024 ambulatory James VALVERDE Facility:[facility] Start: 02-10-2024 End: 02-10-2024 Patient encounter procedure James VALVERDE [facility] Start: 01-29-2024 End: 01-29-2024 Admission to same day surgery center DO Reed Fritz Work Phone: [facility] [place] Start: 01-29-2024 End: 01-29-2024 ambulatory DO Reed Fritz Work Phone: [facility] Work Phone: Start: 01-29-2024 End: 01-29-2024 ambulatory James VALVERDE Facility:[id number] Start: 01-25-2024 End: 01-25-2024 Patient encounter procedure DO Reed Fritz Work Phone: [facility] Work Phone: Start: 01-25-2024 End: 01-25-2024 ambulatory DO Reed Fritz Work Phone: [facility] Work Phone: Start: 01-25-2024 Encounter for preprocedural laboratory examination James Valverde [facility] Start: 01-20-2024 End: 01-20-2024 Patient encounter procedure DO Reed Fritz Work Phone: [facility] [place] Work Phone: Start: 01-20-2024 End: 01-20-2024 ambulatory DO Reed Fritz Work Phone: [facility] Work Phone: Start: 12-23-2023 End: 12-23-2023 ambulatory James VALVERDE Facility:[facility] Start: 12-23-2023 End: 12-23-2023 Patient encounter procedure James VALVERDE [facility] Start: 11-03-2023 End: 11-04-2023 ambulatory REED Coronel LAM Not Available Start: 11-03-2023 End: 11-03-2023 ambulatory REED Coronel LAM Not Available Start: 07-06-2023 End: 07-06-2023 ambulatory CHRISTIN Coronel OLIVA Not Available Start: 05-27-2023 End: 05-27-2023 ambulatory James VALVERDE Facility:[facility] Start: 05-27-2023 End: 05-27-2023 Patient encounter procedure James VALVERDE [facility] Start: 06-25-2022 End: 06-25-2022 Patient encounter procedure James VALVERDE [facility] Start: 06-10-2022 End: 06-10-2022 Patient encounter procedure James VALVERDE [facility] Start: 05-13-2022 End: 05-13-2022 Patient encounter procedure MD James Valverde Work Phone: [facility] [place] Start: 04-23-2022 End: 04-23-2022 Patient encounter procedure James VALVERDE [facility] Start: 07-11-2021 End: 07-12-2021 ambulatory MD RAFAEL AVALOS Facility:[facility] Start: 07-10-2021 End: 07-11-2021 ambulatory MD MATIAS YODER Facility:[facility] Start: 06-26-2021 End: 06-27-2021 ambulatory MD RAFAEL AVALOS Facility:[facility] Start: 02-28-2021 End: 03-01-2021 ambulatory MD MATIAS YODER Facility:[facility] Start: 02-05-2021 End: 02-06-2021 ambulatory MD MATIAS YODER Facility:[facility] Start: 02-04-2021 End: 02-05-2021 ambulatory MD MATIAS YODER Facility:[facility] Start: 01-29-2021 ambulatory MD MATIAS YODER Facility:[facility] Start: 01-23-2021 ambulatory MD MATIAS YODER Facility:[facility] Procedures Date Procedure Procedure Detail Performing Clinician Start: 03-31-2024 Blood count complete auto&auto difrntl wbc G Yves Rausch MD Work Phone: Start: 01-29-2024 OR (TRUS) Prostate B iopsy w/Ultrasound (Not Applicable) DO Reed Fritz Work Phone: Start: 01-25-2024 Plain chest X-ray DO Yosi Fritz Work Phone: Start: 01-20-2024 MR prostate wo/w con DO Reed Fritz Work Phone: Start: 10-28-2023 Lipid 1996 panel - S davon or Plasma BATSHEVA Rausch MD Work Phone: Start: 06-11-2022 MRI-US fusion guided transperineal biopsy of prostate James VALVERDE Start: 09-01-2014 Colonoscopy BATSHEVA Rausch MD Work Phone: Arthroplasty of knee James VALVERDE Colonoscopy James VALVERDE Tonsillectomy James VALVERDE Plan of Treatment Date Care Activity Detail Author Start: 10-27-2028 Lipid panel Lipid Screening [facility] Start: 06-23-2024 End: 06-23-2024 Patient encounter procedure 06/23/2024 10:00 AM EDT Office Visit Radiation Oncology [address] [place] [address] Lisa Rausch MD [address] [place] [address] Followup Radiation Oncology Comment on above: Followup Start: 06-09-2024 End: 06-09-2024 Patient encounter procedure 06/09/2024 8:00 AM EDT Appointment Radiology Pet CT [address] [place] [address] [facility] Radiology [facility] CT Comment on above: [facility] Start: 05-26-2024 End: 05-26-2024 Patient encounter procedure 05/26/2024 1:30 PM EDT Office Visit Radiation Oncology [address] [place] [address] iLsa Rausch MD [address] [place] [address] Followup Radiation Oncology Comment on above: Followup Start: 05-12-2024 End: 05-12-2024 Patient encounter procedure 05/12/2024 8:00 AM EDT Office Visit Radiation Oncology [address] [place] [address] Lisa Rausch MD [address] [place] [address] Implant TB Radiation Oncology Comment on above: Implant TBH Start: 04-28-2024 End: 04-28-2024 Patient encounter procedure 04/28/2024 9:00 AM EDT Office Visit Radiation Oncology [address] [place] [address] Lisa Rausch MD [address] [place] [address] Volume study Radiation Oncology Comment on above: Volume study Start: 04-24-2024 Covid-19 Vaccine ( season) Covid-19 Vaccine ( season) [facility] Start: 04-24-2024 Influenza vaccination Influenza Vacc ine (#1) [facility] Start: 04-22-2024 End: 04-22-2024 Patient encounter procedure 04/22/2024 2:15 PM EDT Appointment Radiation Oncology [address] [place] [address] Prostate Brachy boost Radiation Oncology Comment on above: Prostate Brachy gloria t Start: 04-21-2024 End: 04-21-2024 Patient encounter procedure 04/21/2024 2:15 PM EDT Appointment Radiation Oncology [address] [place] [address] Prostate Radiation Oncology Comment on above: Prostate Start: 04-20-2024 End: 04-20-2024 Patient encounter procedure 04/20/2024 2:15 PM EDT Appointment Radiation Oncology [address] [place] [address] Prostate Radiation Oncology Comment on above: Prostate Start: 04-19-2024 End: 04-19-2024 Patient encounter procedure 04/19/2024 2:15 PM EDT Appointment Radiation Oncology [address] [place] [address] Prostate Radiation Oncology Comment on above: Prostate Start: 04-18-2024 End: 04-18-2024 Patient encounter procedure Radiation Oncology Comment on above: Prostate COLETTE PATIENT Start: 04-15-2024 End: 04-15-2024 Patient encounter procedure 04/15/2024 2:15 PM EDT Appointment Radiation Oncology [address] [place] [address] Prostate Radiation Oncology Comment on above: Prostate Start: 04-14-2024 End: 04-14-2024 Patient encounter procedure 04/14/2024 2:15 PM EDT Appointment Radiation Oncology [address] [place] [address] Prostate Radiation Oncology Comment on above: Prostate Start: 04-13-2024 End: 04-13-2024 Patient encounter procedure 04/13/2024 2:15 PM EDT Appointment Radiation Oncology [address] [place] [address] Prostate Radiation Oncology Comment on above: Prostate Start: 04-12-2024 End: 04-12-2024 Patient encounter procedure 04/12/2024 2:15 PM EDT Appointment Radiation Oncology [address] [place] [address] Prostate Radiation Oncology Comment on above: Prostate Start: 04-11-2024 End: 04-11-2024 Patient encounter procedure Radiation Oncology Comment on above: Prostate Location: [facility] Start: 04-08-2024 End: 04-08-2024 Patient encounter procedure 04/08/2024 2:15 PM EDT Appointment Radiation Oncology [address] [place] [address] Prostate Radiation Oncology Comment on above: Prostate Start: 04-07-2024 End: 04-07-2024 Patient encounter procedure 04/07/2024 2:15 PM EDT Appointment Radiation Oncology [address] [place] [address] Prostate Radiation Oncology Comment on above: Prostate Start: 04-06-2024 End: 04-06-2024 Patient encounter procedure 04/06/2024 3:00 PM EDT Appointment Radiation Oncology [address] [place] [address] Prostate Radiation Oncology Comment on above: Prostate Start: 04-05-2024 End: 04-05-2024 Patient encounter procedure 04/05/2024 2:15 PM EDT Appointment Radiation Oncology [address] [place] [address] Prostate Radiation Oncology Comment on above: Prostate Start: 04-04-2024 End: 04-04-2024 Patient encounter procedure Radiation Oncology Comment on above: Prostate Location: [facility] Start: 04-01-2024 End: 04-01-2024 Patient encounter procedure 04/01/2024 2:15 PM EDT Appointment Radiation Oncology [address] [place] [address] Prostate Radiation Oncology Comment on above: Prostate Start: 03-31-2024 End: 03-31-2024 Patient encounter procedure 03/31/2024 2:00 PM EDT Appointment Radiation Oncology [address] [place] [address] Prostate Radiation Oncology Comment on above: Prostate Start: 03-30-2024 End: 03-30-2024 Patient encounter procedure 03/30/2024 3:00 PM EDT Appointment Radiation Oncology [address] [place] [address] Prostate Radiation Oncology Comment on above: Prostate Start: 03-29-2024 End: 03-29-2024 Patient encounter procedure 03/29/2024 3:00 PM EDT Appointment Radiation Oncology [address] [place] [address] Prostate Radiation Oncology Comment on above: Prostate Start: 03-28-2024 End: 03-28-2024 Patient encounter procedure Radiation Oncology Comment on above: Prostate Location: [facility] Start: 03-25-2024 End: 03-25-2024 Patient encounter procedure 03/25/2024 3:00 PM EDT Appointment Radiation Oncology [address] [place] [address] Prostate Radiation Oncology Comment on above: Prostate Start: 03-24-2024 End: 03-24-2024 Patient encounter procedure 03/24/2024 2:30 PM EDT Appointment Radiation Oncology [address] [place] [address] Prostate Radiation Oncology Comment on above: Prostate Start: 03-23-2024 End: 03-23-2024 Patient encounter procedure 03/23/2024 3:00 PM EDT Appointment Radiation Oncology [address] [place] [address] Prostate Radiation Oncology Comment on above: Prostate Start: 03-22-2024 End: 03-22-2024 Patient encounter procedure 03/22/2024 2:30 PM EDT Appointment Radiation Oncology [address] [place] [address] Prostate-recheck ap ssd Radiation Oncology Comment on above: Prostate-recheck ap ssd Start: 03-21-2024 End: 03-21-2024 Patient encounter procedure Radiation Oncology Comment on above: new start prostate new start prostate * prefers after 12 Start: 02-24-2024 End: 02-24-2024 Patient encounter procedure 02/24/2024 2:00 PM EDT Office Visit Radiation Oncology [address] [place] [address] Lisa Rausch MD [address] [place] [address] Dr colleen nazario prostate cancer Radiation Oncology Comment on above: Dr colleen nazario prostate cancer Start: 02-23-2024 End: 02-23-2024 Patient encounter procedure 02/23/2024 1:30 PM EDT Appointment Radiology Pet [facility] [address] [place] [address] [facility] Outside order scanned Radiology Pet CT Comment on above: [facility] Outside order scanned Start: 01-29-2024 [facility] Start: 01-29-2024 [facility] Start: 01-20-2024 MR Prostate WO and W contrast IV [facility] Start: 01-20-2024 MR prostate wo/w con MR prostate wo/ w con [facility] Start: 10-23-2023 Covid-19 Vaccine () Covid-19 Vaccine () [facility] Start: 08-24-2023 Advance Directive Discussion Advance Directive Discussion [facility] Start: 08-24-2023 Behavioral Health Screening Behavioral Health Screening [facility] Start: 04-24-2023 Covid-19 Vaccine () Covid-19 Vaccine () [facility] Start: 01-30-2023 Urine microalbumin profile DTaP,Tdap,Td Vaccine (2 - Td or Tdap) [facility] Start: 05-13-2022 MR Prostate WO and W contrast IV [facility] Work Phone: Start: 05-13-2022 MR prostate wo/w con MR prostate wo/ w con [facility] Start: 05-21-2021 Pneumococcal Vaccine : 65+ (3 of 3 - PPSV23 or PCV20) Pneumococcal Vaccine: 65+ (3 of 3 - PPSV23 or PCV20) [facility] Start: 09-01-2015 Screening for malign ant neoplasm of colon [facility] Start: 1993 Diabetes Screening Diabetes Screenin g [facility] Start: 1993 Screening for malign ant neoplasm of colon [facility] Start: 1966 Anxiety Screening Anxiety Screening [facility] Start: 1966 Depression Screening Depression Scre ening [facility] Start: 1966 Hepatitis C screening Hepatitis C Sc [facility] Guidance for radiation treatment of Unspecified body region CT SIM PLANNING RADIATION ONCOLOGY Radiology Routine Malignant neoplasm of prostate (HCC) Ordered: 03/14/2024 [facility] Work Phone: Comment on above: Ordered: 03/14/2024 Patient Education Know your Meds [facility] Work Phone: Patient referral [facility] Work Phone: Immunizations Immunization Date Immunization Notes Care Provider Jose F payton 06-24-2023 COVID-19 (MODERNA) 12Y and older DO Reed Fritz Work Phone: [facility] 06-10-2023 influenza virus vacc ine, unspecified formulation James VALVERDE [facility] 06-27-2022 SARS-CoV-2 (COVID-19 ) [id number] James VALVERDE [facility] 06-02-2022 influenza virus vacc ine, unspecified formulation James VALVERDE [facility] 12-23-2021 SARS-CoV-2 (COVID-19 ) mRNA-1273 vaccine James Zelnas [facility] 06-18-2021 SARS-CoV-2 (COVID-19 ) mRNA-1273 vaccine James Zelnas [facility] 05-20-2021 influenza virus vacc ine, unspecified formulation [employer] [facility] 11-15-2020 SARS-CoV-2 (COVID-19 ) mRNA-1273 vaccine [employer] [facility] 10-18-2020 SARS-CoV-2 (COVID-19 ) mRNA-1273 vaccine [employer] [facility] 05-18-2020 influenza virus vacc ine, unspecified formulation [employer] [facility] 10-08-2019 zoster vaccine recombinant [employer] [facility] 06-28-2019 zoster vaccine recombinant [employer] [facility] 06-27-2019 influenza virus vacc ine, unspecified formulation [employer] [facility] 05-13-2017 influenza virus vacc ine, unspecified formulation [employer] [facility] 08-13-2016 zoster vaccine, live [employer] [facility] 05-21-2016 influenza virus vacc ine, unspecified formulation James VALVERDE [facility] 05-21-2016 pneumococcal conjuga te vaccine, 13 valent James VALVERDE [facility] 05-30-2015 influenza virus vacc ine, unspecified formulation James VALVERDE [facility] 01-31-2013 pneumococcal polysaccharide vaccine, 23 valent James VALVERDE [facility] 01-30-2013 tetanus toxoid, redu deena diphtheria toxoid, and acellular pertussis vaccine, adsorbed James VALVERDE [facility] Payers Date Payer Category Payer Self-pay 2023 Medicare AETNA MEDICARE A ETNA MEDICARE PPO [id number] 2023-Present [phone] [address] [place] [address] PPO [id number] 2022 Private Health Insurance [facility] [id number] 2021 Private Health Insurance 1950 Unknown [id number] [id number] 96 1948 Unknown [id number] 2.16.840.1.726316.3.579.2.1 96 1948 Unknown [id number] 2.16.840.1.597705.3.579.2.1 96 1948 Unknown [id number] 2.16.840.1.877493.3.579.2.1 96 1948 Unknown [id number] 2.16.840.1.919148.3.579.2.1 96 1948 Unknown [id number] 2.16.840.1.217185.3.579.2.1 96 1948 Unknown [id number] 2.16.840.1.723147.3.579.2.1 96 1948 Unknown [id number] 2.16.840.1.184178.3.579.2.1 96 1948 Unknown [id number] 2.16.840.1.980876.3.579.2.1 259 1948 Unknown [id number] 2.16.840.1.248928.3.579.2.1 259 1948 Unknown [id number] 2.16.840.1.360532.3.579.2.1 259 1948 Unknown [id number] 2.16.840.1.357433.3.579.2.7 27 1948 Unknown [id number] 2.16.840.1.674237.3.579.2.7 27 1948 Unknown [id number] 2.16.840.1.354412.3.579.2.7 27 1948 Unknown [id number] 2.16.840.1.625317.3.579.2.7 27 1948 Unknown [id number] 2.16.840.1.264035.3.579.2.7 27 1948 Unknown [id number] 2.16.840.1.422763.3.579.2.7 27 1948 Unknown [id number] 2.16.840.1.045156.3.579.2.7 27 1948 Unknown [id number] 2.16.840.1.030350.3.579.2.7 27 1948 Unknown [id number] 2.16.840.1.131327.3.579.2.7 27 Unknown [id number] 2.16.840.1.209165.3.579.2.5 31 Unknown [id number] 2.16.840.1.648594.3.579.2.5 31 Unknown [id number] 2.16.840.1.307392.3.579.2.5 31 Social History Date Type Detail Facility Start: 04-23-2022 End: 02-17-2024 Tobacco smoking status Ex-smoker (finding) [facility] Tobacco smoking status Never [facility] Start: 02-24-2024 Sex Assigned At Male [facility] Start: 1950 Sex Assigned At Male F [facility] Tobacco smoking status NHIS Tobacco smoking consumption unknown [facility] Start: 1950 Sex Assigned At Not on file [facility] Start: 02-24-2024 History of Social function [facility] Goals Date Patient Goal Desired Activity /State Functional Status Date Assessment Result Facility 02-17-2024 Functional Status N/A [facility] 02-10-2024 Functional Status N/A [facility] 12-23-2023 Functional Status N/A [facility] 05-27-2023 Functional Status N/A [facility] 06-25-2022 Functional Status N/A [facility] 04-23-2022 Functional Status N/A [facility] Clinical Notes 02-04-2021 to 05-02-2024 Lisa Rausch MD - 05/02/2024 12:00 AM Lisa Robb MD - 04/28/2024 8:50 AM Lisa Robb MD - 04/28/2024 12:00 AM Lisa Robb MD - 04/22/2024 12:00 AM EDT Note Date & Type Note Facility 05-02-2024 History of Present illness Narrative JAYLEN MONTAGUE [id number] 05/02/2024 [facility] Department of Radiation Oncology [facility] RADIATION ONCOLOGY BRACHYTHERAPY TREATMENT PLANNING NOTE For reasons stated in the consult note, JAYLEN MONTAGUE is a candidate for definitive radiation. Based on review and interpretation of the relevant diagnostic studies together with the exam findings, JAYLEN MONTAGUE was simulated on 04/28/2024 and the target volume to be treated as well as the critical normal structure(s) were delineated as indicated in the simulation note. I personally reviewed the TRUS and was able to create contours of the volume to be treated and the normal critical structures to be spared. In this particular case, the rectum was deemed to be a critical structure. Special consideration of this was given in light of the potential for increased toxicity if the rectum receives too much radiation dose. After participating in the treatment planning process with medical physics, I approved the best plan to deliver my prescribed course of radiation. The target tissue was planned using pre-planning to allow for the best isodose distribution to deliver a minimum dose of 100 Gy to the prostate. The dose to normal tissue (rectum) and target tissue was confirmed upon review of the calculated dose superimposed on the TRUS images containing the target tissue and the rectum. A completed summary of this plan dated 05/02/2024 incorporated herein by reference includes dose, energy, isodose distribution and DVH. Electronically Signed Yves Rausch M.D. / COLETTE 43:38 PM documented in this encounter [facility] 05-02-2024 Note HNO ID: [id number] Author: Lisa RAUSCH MD Service: ? Author Type: Physician Type: Progress Notes Filed: 05/04/2024 15:38 Note Text: JAYLEN MONTAGUE [id number] 05/02/2024 [facility] Department of Radiation Oncology [facility] RADIATION ONCOLOGY BRACHYTHERAPY TREATMENT PLANNING NOTE For reasons stated in the consult note, JAYLEN MONTAGUE is a candidate for definitive radiation. Based on review and interpretation of the relevant diagnostic studies together with the exam findings, JAYLEN MONTAGUE was simulated on 04/28/2024 and the target volume to be treated as well as the critical normal structure(s) were delineated as indicated in the simulation note. I personally reviewed the TRUS and was able to create contours of the volume to be treated and the normal critical structures to be spared. In this particular case, the rectum was deemed to be a critical structure. Special consideration of this was given in light of the potential for increased toxicity if the rectum receives too much radiation dose. After participating in the treatment planning process with medical physics, I approved the best plan to deliver my prescribed course of radiation. The target tissue was planned using pre-planning to allow for the best isodose distribution to deliver a minimum dose of 100 Gy to the prostate. The dose to normal tissue (rectum) and target tissue was confirmed upon review of the calculated dose superimposed on the TRUS images containing the target tissue and the rectum. A completed summary of this plan dated 05/02/2024 incorporated herein by reference includes dose, energy, isodose distribution and DVH. Electronically Signed Yves Rausch M.D. / COLETTE 43:38 PM [facility] 04-28-2024 Note HNO ID: [id number] Author: Lisa RAUSCH MD Service: ? Author Type: Physician Type: Progress Notes Filed: 04/28/2024 09:34 Note Text: UNIVERSAL PROTOCOL / SAFETY CHECKLIST Procedure to be Performed: prostate volume study Sign In: A Moment of CARE was completed. Personnel directly involved with the procedure wore the appropriate PPE (Personal Protective Equipment). Patient/Surrogate Stated/Verified: PATIENT VERIFIED(optional for EMERGENT procedures): Patient name, Date of , Relevant allergies, and The intended procedure Time Out Communication: Intended patient and procedure match the source documents. Consent documented and matches the intended procedure. Sign Out: SIGN OUT (optional for EMERGENT procedures): No specimen collected. All instruments, equipment, possible retained foreign bodies accounted for. Lisa Rausch MD [facility] 04-28-2024 History of Present illness Narrative UNIVERSAL PROTOCOL / SAFETY CHECKLIST Procedure to be Performed: prostate volume study Sign In: A Moment of CARE was completed. Personnel directly involved with the procedure wore the appropriate PPE (Personal Protective Equipment). Patient/Surrogate Stated/Verified: PATIENT VERIFIED(optional for EMERGENT procedures): Patient name, Date of , Relevant allergies, and The intended procedure Time Out Communication: Intended patient and procedure match the source documents. Consent documented and matches the intended procedure. Sign Out: SIGN OUT (optional for EMERGENT procedures): No specimen collected. All instruments, equipment, possible retained foreign bodies accounted for. Lisa Rausch MD documented in this encounter [facility] 04-28-2024 History of Present illness Narrative JAYLEN MONTAGUE [id number] 04/28/2024 [facility] Department of Radiation Oncology [facility] RADIATION ONCOLOGY SIMULATION NOTE DATE OF SIMULATION: 04/28/2024 MACHINE: [employer] Focus 500 Diagnosis: 185 (Prostate Gland) AREA:Prostate PATIENT POSITION: Supine CONTRAST: None PROTOCOL: None CONCURRENT THERAPY: None FIXATION DEVICE: UTS Stabilization device by [email or web address]. PROCEDURE: Patient was simulated in exaggerated dorsal lithotomy position. Serial images of the prostate were acquired using TRUS and reconstructed in 3D space. These images were imported into [email or web address] Prostate planning system where a plan was generated. ASSESSMENT/PLAN: Patient tolerated simulation procedure well. Electronically Signed Yves Rausch M.D. / COLETTE 42:42 PM documented in this encounter [facility] 04-28-2024 Note HNO ID: [id number] Author: Lisa RAUSCH MD Service: ? Author Type: Physician Type: Progress Notes Filed: 04/28/2024 14:42 Note Text: JAYLEN MONTAGUE [id number] 04/28/2024 [facility] Department of Radiation Oncology [facility] RADIATION ONCOLOGY SIMULATION NOTE DATE OF SIMULATION: 04/28/2024 MACHINE: [employer] Focus 500 Diagnosis: 185 (Prostate Gland) AREA:Prostate PATIENT POSITION: Supine CONTRAST: None PROTOCOL: None CONCURRENT THERAPY: None FIXATION DEVICE: UTS Stabilization device by [employer]. PROCEDURE: Patient was simulated in exaggerated dorsal lithotomy position. Serial images of the prostate were acquired using TRUS and reconstructed in 3D space. These images were imported into [email or web address] Prostate planning system where a plan was generated. ASSESSMENT/PLAN: Patient tolerated simulation procedure well. Electronically Signed Yves Rausch M.D. / COLETTE :42 PM [facility] 04-22-2024 History of Present illness Narrative [facility] Radiation Oncology Department RADIATION ONCOLOGY - COMPLETION NOTE PATIENT: KADI MONTAGUE: 1950 DATES OF TREATMENT: 03/21/2024 to 04/22/2024 DIAGNOSIS: Prostate adenocarcinoma, initial PSA 12.1, biopsy Milford score 4 + 3 = 7 (grade group 3), clinical stage T2a, N0, M0, stage IIC [T1-T2, N0, M0, PSA <20, GG 3] (AJCC 8th ed.), s/p TRUS Random and MR Targeted biopsy. AREA TREATED: Pelvis Prostate DELIVERED DOSE: Area: Pelvis Prostate 4,500 cGy in 25 fractions, 3 Kemp, IMRT, 10MV with daily CBCT TOTAL: 4,500 cGy in 25 fractions ELAPSED TIME: 32 days. CLINICAL SUMMARY: The patient tolerated radiation with mild radiation related diarrhea, cystitis and fatigue as expected. No other issues. The patient was able to complete treatment as intended without break interruption or modification of prescription plan. He will return for planned prostate brachytherapy boost. Staff Physician Yves Rausch M.D. / KG {*/Object.Sanct_Date}9:26 AM documented in this encounter [facility] 04-22-2024 Note HNO ID: [id number] Author: Lisa RAUSCH MD Service: ? Author Type: Physician Type: Progress Notes Filed: 05/04/2024 09:26 Note Text: [facility] Radiation Oncology Department RADIATION ONCOLOGY - COMPLETION NOTE PATIENT: KADI MONTAGUE: 1950 DATES OF TREATMENT: 03/21/2024 to 04/22/2024 DIAGNOSIS: Prostate adenocarcinoma, initial PSA 12.1, biopsy Vernon score 4 + 3 = 7 (grade group 3), clinical stage T2a, N0, M0, stage IIC [T1-T2, N0, M0, PSA <20, GG 3] (AJCC 8th ed.), s/p TRUS Random and MR Targeted biopsy. AREA TREATED: Pelvis Prostate DELIVERED DOSE: Area: Pelvis Prostate 4,500 cGy in 25 fractions, 3 Kemp, IMRT, 10MV with daily CBCT TOTAL: 4,500 cGy in 25 fractions ELAPSED TIME: 32 days. CLINICAL SUMMARY: The patient tolerated radiation with mild radiation related diarrhea, cystitis and fatigue as expected. No other issues. The patient was able to complete treatment as intended without break interruption or modification of prescription plan. He will return for planned prostate brachytherapy boost. Staff Physician Yves Rausch M.D. / CHARLENE {*/Object.Sanct_Date}9:26 AM Electronically Signed cc: Dr. Valverde [facility] 04-18-2024 Note HNO ID: [id number] Author: EDMUNDO ANGUIANO MD Service: ? Author Type: Physician Type: Progress Notes Filed: 04/26/2024 02:25 Note Text: Radiation Oncology - On Treatment Review (OTR) Note PATIENT NAME: Jaylen Montague PATIENT DIAGNOSIS: Prostate adenocarcinoma, initial PSA 12.1, biopsy Milford score 4 + 3 = 7 (grade group 3), clinical stage T2a, N0, M0, stage IIC [T1-T2, N0, M0, PSA <20, GG 3] (AJCC 8th ed.), s/p TRUS Random and MR Targeted biopsy. COURSE: definitive Current dose: 3780 cGy in 21 fx Planned dose: 4500 cGy in 25 fx SUBJECTIVE: Tolerating XRT well denies any burning/discomfort urination and notes nocturia 1-2 times and no difficulty straining or starting his stream or hematuria or incontinence/leakage. He does note occasional incomplete emptying and denies any nausea. Some diarrhea recently and endorses fatigue without hot flashes and has good appetite and hydration with stable weight. PHYSICAL EXAM: KPS: 90 General Appearance: Alert and oriented. No acute distress. IMAGING/LAB RESULTS: None TOXICITY ASSESSMENT (CTC v4.0): Fatigue:grade 1 - Fatigue relieved by rest Radiation Dermatitis: grade 0 - No symptoms Diarrhea:grade 1 - Increase to >4 stools per day over baseline; mild increase in ostomy output compared to baseline Proctitis: grade 0 - No symptoms Urinary frequency: grade 1 - present Dysuria: grade 0 - No symptoms Urinary incontinence: grade 0 (No symptoms) Urinary retention: grade 1 - Urinary, suprapubic or intermittent catheter placement not indicated; able to void with some residual Treatment chart checked: Yes Patient treatment site reviewed and verified:Yes Port films reviewed and current:Yes Medications started: None ASSESSMENT/PLAN: Clinically stable. Toxicity within expected parameters. Continue radiation treatment as planned. Discussed the use of Imodium should his diarrhea persist. Edmundo Anguiano MD [facility] 04-18-2024 History of Present illness Narrative Radiation Oncology - On Treatment Review (OTR) Note PATIENT NAME: Jaylen Montague PATIENT DIAGNOSIS: Prostate adenocarcinoma, initial PSA 12.1, biopsy Milford score 4 + 3 = 7 (grade group 3), clinical stage T2a, N0, M0, stage IIC [T1-T2, N0, M0, PSA <20, GG 3] (AJCC 8th ed.), s/p TRUS Random and MR Targeted biopsy. COURSE: definitive Current dose: 3780 cGy in 21 fx Planned dose: 4500 cGy in 25 fx SUBJECTIVE: Tolerating XRT well denies any burning/discomfort urination and notes nocturia 1-2 times and no difficulty straining or starting his stream or hematuria or incontinence/leakage. He does note occasional incomplete emptying and denies any nausea. Some diarrhea recently and endorses fatigue without hot flashes and has good appetite and hydration with stable weight. PHYSICAL EXAM: KPS: 90 General Appearance: Alert and oriented. No acute distress. IMAGING/LAB RESULTS: None TOXICITY ASSESSMENT (CTC v4.0): Fatigue:grade 1 - Fatigue relieved by rest Radiation Dermatitis: grade 0 - No symptoms Diarrhea:grade 1 - Increase to >4 stools per day over baseline; mild increase in ostomy output compared to baseline Proctitis: grade 0 - No symptoms Urinary frequency: grade 1 - present Dysuria: grade 0 - No symptoms Urinary incontinence: grade 0 (No symptoms) Urinary retention: grade 1 - Urinary, suprapubic or intermittent catheter placement not indicated; able to void with some residual Treatment chart checked: Yes Patient treatment site reviewed and verified:Yes Port films reviewed and current:Yes Medications started: None ASSESSMENT/PLAN: Clinically stable. Toxicity within expected parameters. Continue radiation treatment as planned. Discussed the use of Imodium should his diarrhea persist. Edmundo Anguiano MD documented in this encounter [facility] 04-11-2024 Note HNO ID: [id number] Author: Lisa RAUSCH MD Service: ? Author Type: Physician Type: Progress Notes Filed: 04/11/2024 14:39 Note Text: Radiation Oncology - On Treatment Review (OTR) Note PATIENT NAME: Jaylen Montague PATIENT DIAGNOSIS: Prostate adenocarcinoma, initial PSA 12.1, biopsy Vernon score 4 + 3 = 7 (grade group 3), clinical stage T2a, N0, M0, stage IIC [T1-T2, N0, M0, PSA <20, GG 3] (AJCC 8th ed.), s/p TRUS Random and MR Targeted biopsy. COURSE: definitive Current dose: 2880 cGy in 16 fx Planned dose: 4500 cGy in 25 fx SUBJECTIVE: Doing well, still with mild obstructive issues. No significant bowel issues. PHYSICAL EXAM: 04/11/24 1431 BP: 158/93 Pulse: 64 Resp: 18 Temp: 36.3 ?C (97.4 ?F) SpO2: 99% Weight: 112.7 kg (248 lb 7.3 oz) KPS: 100 General Appearance: Alert and oriented. No acute distress. IMAGING/LAB RESULTS: Hemoglobin (g/dL) Date Value 03/31/2024 14.5 Hematocrit (%) Date Value 03/31/2024 41.6 WBC (k/uL) Date Value 03/31/2024 3.85 Platelet Count (k/uL) Date Value 03/31/2024 173 TOXICITY ASSESSMENT (CTC v4.0): Fatigue:grade 1 - Fatigue relieved by rest Radiation Dermatitis: grade 0 - No symptoms Diarrhea:grade 1 Proctitis: grade 0 - No symptoms Urinary frequency: grade 1 Dysuria: grade 0 - No symptoms Urinary incontinence: grade 0 (No symptoms) Urinary retention: grade 1 Treatment chart checked: Yes Patient treatment site reviewed and verified:Yes Port films reviewed and current:Yes Medications started: None ASSESSMENT/PLAN: Patient doing well. Recommend starting Flomax . Chart and imaging reviewed. Continue radiation as outlined. Lisa Rausch MD [facility] 04-11-2024 History of Present illness Narrative Radiation Oncology - On Treatment Review (OTR) Note PATIENT NAME: Jaylen Montague PATIENT DIAGNOSIS: Prostate adenocarcinoma, initial PSA 12.1, biopsy Vernon score 4 + 3 = 7 (grade group 3), clinical stage T2a, N0, M0, stage IIC [T1-T2, N0, M0, PSA <20, GG 3] (AJCC 8th ed.), s/p TRUS Random and MR Targeted biopsy. COURSE: definitive Current dose: 2880 cGy in 16 fx Planned dose: 4500 cGy in 25 fx SUBJECTIVE: Doing well, still with mild obstructive issues. No significant bowel issues. PHYSICAL EXAM: 04/11/24 1431 BP: 158/93 Pulse: 64 Resp: 18 Temp: 36.3 C (97.4 F) SpO2: 99% Weight: 112.7 kg (248 lb 7.3 oz) KPS: 100 General Appearance: Alert and oriented. No acute distress. IMAGING/LAB RESULTS: Hemoglobin (g/dL) Date Value 03/31/2024 14.5 Hematocrit (%) Date Value 03/31/2024 41.6 WBC (k/uL) Date Value 03/31/2024 3.85 Platelet Count (k/uL) Date Value 03/31/2024 173 TOXICITY ASSESSMENT (CTC v4.0): Fatigue:grade 1 - Fatigue relieved by rest Radiation Dermatitis: grade 0 - No symptoms Diarrhea:grade 1 Proctitis: grade 0 - No symptoms Urinary frequency: grade 1 Dysuria: grade 0 - No symptoms Urinary incontinence: grade 0 (No symptoms) Urinary retention: grade 1 Treatment chart checked: Yes Patient treatment site reviewed and verified:Yes Port films reviewed and current:Yes Medications started: None ASSESSMENT/PLAN: Patient doing well. Recommend starting Flomax . Chart and imaging reviewed. Continue radiation as outlined. Lisa Rausch MD documented in this encounter [facility] 04-04-2024 Note HNO ID: [id number] Author: Lisa RAUSCH MD Service: ? Author Type: Physician Type: Progress Notes Filed: 04/04/2024 15:12 Note Text: Radiation Oncology - On Treatment Review (OTR) Note PATIENT NAME: Jaylen Montague PATIENT DIAGNOSIS: Prostate adenocarcinoma, initial PSA 12.1, biopsy Milford score 4 + 3 = 7 (grade group 3), clinical stage T2a, N0, M0, stage IIC [T1-T2, N0, M0, PSA <20, GG 3] (AJCC 8th ed.), s/p TRUS Random and MR Targeted biopsy. COURSE: definitive Current dose: 1980 cGy in 11 fx Planned dose: 4500 cGy in 25 fx SUBJECTIVE: Doing well, mild issues with obstructive symptoms most of the time emptying well. No dysuria or hematuria. PHYSICAL EXAM: 04/04/24 1441 BP: 150/86 Pulse: 66 Resp: 18 Temp: 36.3 ?C (97.4 ?F) SpO2: 99% Weight: 117.3 kg (258 lb 9.6 oz) KPS: 100 General Appearance: Alert and oriented. No acute distress. IMAGING/LAB RESULTS: Hemoglobin (g/dL) Date Value 03/31/2024 14.5 Hematocrit (%) Date Value 03/31/2024 41.6 WBC (k/uL) Date Value 03/31/2024 3.85 Platelet Count (k/uL) Date Value 03/31/2024 173 TOXICITY ASSESSMENT (CTC v4.0): Fatigue:grade 1 - Fatigue relieved by rest Radiation Dermatitis: grade 0 - No symptoms Diarrhea:grade 1 Proctitis: grade 0 - No symptoms Urinary frequency: grade 1 Dysuria: grade 0 - No symptoms Urinary incontinence: grade 0 (No symptoms) Urinary retention: grade 1 Treatment chart checked: Yes Patient treatment site reviewed and verified:Yes Port films reviewed and current:Yes Medications started: None ASSESSMENT/PLAN: Patient doing well. Discussed adding Flomax patient wants to hold off for now. Chart and imaging reviewed. Continue radiation as outlined. Lisa Rausch MD [facility] 04-04-2024 History of Present illness Narrative Radiation Oncology - On Treatment Review (OTR) Note PATIENT NAME: Jaylen Montague PATIENT DIAGNOSIS: Prostate adenocarcinoma, initial PSA 12.1, biopsy Vernon score 4 + 3 = 7 (grade group 3), clinical stage T2a, N0, M0, stage IIC [T1-T2, N0, M0, PSA <20, GG 3] (AJCC 8th ed.), s/p TRUS Random and MR Targeted biopsy. COURSE: definitive Current dose: 1980 cGy in 11 fx Planned dose: 4500 cGy in 25 fx SUBJECTIVE: Doing well, mild issues with obstructive symptoms most of the time emptying well. No dysuria or hematuria. PHYSICAL EXAM: 04/04/24 1441 BP: 150/86 Pulse: 66 Resp: 18 Temp: 36.3 C (97.4 F) SpO2: 99% Weight: 117.3 kg (258 lb 9.6 oz) KPS: 100 General Appearance: Alert and oriented. No acute distress. IMAGING/LAB RESULTS: Hemoglobin (g/dL) Date Value 03/31/2024 14.5 Hematocrit (%) Date Value 03/31/2024 41.6 WBC (k/uL) Date Value 03/31/2024 3.85 Platelet Count (k/uL) Date Value 03/31/2024 173 TOXICITY ASSESSMENT (CTC v4.0): Fatigue:grade 1 - Fatigue relieved by rest Radiation Dermatitis: grade 0 - No symptoms Diarrhea:grade 1 Proctitis: grade 0 - No symptoms Urinary frequency: grade 1 Dysuria: grade 0 - No symptoms Urinary incontinence: grade 0 (No symptoms) Urinary retention: grade 1 Treatment chart checked: Yes Patient treatment site reviewed and verified:Yes Port films reviewed and current:Yes Medications started: None ASSESSMENT/PLAN: Patient doing well. Discussed adding Flomax patient wants to hold off for now. Chart and imaging reviewed. Continue radiation as outlined. Lisa Rausch MD documented in this encounter [facility] 03-31-2024 Nurse Note Jaylen Montague presents in office today for: Lab Draw only . Ordering Provider: Yves Rausch M.D. Test (s) ordered: CBC Method for obtaining blood: Phlebotomy was performed, accessing left antecubital vein. Needle removed intact. Dressing secured. Patient denies discomfort, dizziness, light-headedness or weakness and left the department without assist. Jorge Raygoza LPN [facility] 03-31-2024 Nurse Note Jaylen Montague presents in office today for: Lab Draw only . Ordering Provider: Yves Rausch M.D. Test (s) ordered: CBC Method for obtaining blood: Phlebotomy was performed, accessing left antecubital vein. Needle removed intact. Dressing secured. Patient denies discomfort, dizziness, light-headedness or weakness and left the department without assist. Jorge Raygoza LPN documented in this encounter [facility] 03-28-2024 Note HNO ID: [id number] Author: Lisa RAUSCH MD Service: ? Author Type: Physician Type: Progress Notes Filed: 03/28/2024 16:14 Note Text: Radiation Oncology - On Treatment Review (OTR) Note PATIENT NAME: Jaylen Montague PATIENT DIAGNOSIS: Prostate adenocarcinoma, initial PSA 12.1, biopsy Milford score 4 + 3 = 7 (grade group 3), clinical stage T2a, N0, M0, stage IIC [T1-T2, N0, M0, PSA <20, GG 3] (AJCC 8th ed.), s/p TRUS Random and MR Targeted biopsy. COURSE: definitive Current dose: 1080 cGy in 6 fx Planned dose: 4500 cGy in 25 fx SUBJECTIVE: Doing well mild increased bladder and bowel frequency. PHYSICAL EXAM: 03/28/24 1558 BP: 128/83 Pulse: 60 Resp: 16 Temp: 36.4 ?C (97.6 ?F) SpO2: 98% Weight: 117 kg (257 lb 15 oz) KPS: 100 General Appearance: Alert and oriented. No acute distress. IMAGING/LAB RESULTS: None TOXICITY ASSESSMENT (CTC v4.0): Fatigue:grade 1 - Fatigue relieved by rest Radiation Dermatitis: grade 0 - No symptoms Diarrhea:grade 1 Proctitis: grade 0 - No symptoms Urinary frequency: grade 1 Dysuria: grade 0 - No symptoms Urinary incontinence: grade 0 (No symptoms) Urinary retention: grade 0 - No symptoms Treatment chart checked: Yes Patient treatment site reviewed and verified:Yes Port films reviewed and current:Yes Medications started: None ASSESSMENT/PLAN: Patient doing well. Chart and imaging reviewed. Continue radiation as outlined. Lisa Rausch MD [facility] 03-28-2024 History of Present illness Narrative Radiation Oncology - On Treatment Review (OTR) Note PATIENT NAME: Jaylen Montague PATIENT DIAGNOSIS: Prostate adenocarcinoma, initial PSA 12.1, biopsy Vernon score 4 + 3 = 7 (grade group 3), clinical stage T2a, N0, M0, stage IIC [T1-T2, N0, M0, PSA <20, GG 3] (AJCC 8th ed.), s/p TRUS Random and MR Targeted biopsy. COURSE: definitive Current dose: 1080 cGy in 6 fx Planned dose: 4500 cGy in 25 fx SUBJECTIVE: Doing well mild increased bladder and bowel frequency. PHYSICAL EXAM: 03/28/24 1558 BP: 128/83 Pulse: 60 Resp: 16 Temp: 36.4 C (97.6 F) SpO2: 98% Weight: 117 kg (257 lb 15 oz) KPS: 100 General Appearance: Alert and oriented. No acute distress. IMAGING/LAB RESULTS: None TOXICITY ASSESSMENT (CTC v4.0): Fatigue:grade 1 - Fatigue relieved by rest Radiation Dermatitis: grade 0 - No symptoms Diarrhea:grade 1 Proctitis: grade 0 - No symptoms Urinary frequency: grade 1 Dysuria: grade 0 - No symptoms Urinary incontinence: grade 0 (No symptoms) Urinary retention: grade 0 - No symptoms Treatment chart checked: Yes Patient treatment site reviewed and verified:Yes Port films reviewed and current:Yes Medications started: None ASSESSMENT/PLAN: Patient doing well. Chart and imaging reviewed. Continue radiation as outlined. Lisa Rausch MD documented in this encounter [facility] 03-21-2024 Note HNO ID: [id number] Author: Lisa RAUSCH MD Service: ? Author Type: Physician Type: Progress Notes Filed: 03/21/2024 14:51 Note Text: Radiation Oncology - On Treatment Review (OTR) Note PATIENT NAME: Jaylen Montague PATIENT DIAGNOSIS: Prostate adenocarcinoma, initial PSA 12.1, biopsy Vernon score 4 + 3 = 7 (grade group 3), clinical stage T2a, N0, M0, stage IIC [T1-T2, N0, M0, PSA <20, GG 3] (AJCC 8th ed.), s/p TRUS Random and MR Targeted biopsy. COURSE: definitive Current dose: 180 cGy in 1 fx Planned dose: 4500 cGy in 25 fx SUBJECTIVE: Here to start radiation, doing much better after recent COVID infection. PHYSICAL EXAM: KPS: 100 General Appearance: Alert and oriented. No acute distress. IMAGING/LAB RESULTS: None TOXICITY ASSESSMENT (CTC v4.0): Fatigue:grade 1 - Fatigue relieved by rest Radiation Dermatitis: grade 0 - No symptoms Diarrhea:grade 0 - No symptoms Proctitis: grade 0 - No symptoms Urinary frequency: grade 0 - No symptoms Dysuria: grade 0 - No symptoms Urinary incontinence: grade 0 (No symptoms) Urinary retention: grade 0 - No symptoms Treatment chart checked: Yes Patient treatment site reviewed and verified:Yes Port films reviewed and current:Yes Medications started: None ASSESSMENT/PLAN: Patient starting radiation today. Plan of care and expectations again reviewed. Plan, MU calculations and qa report reviewed. Initial imaging including cone beam ct and verification reviewed and approved. First treatment given. Continue radiation as prescribed. Lisa Rausch MD [facility] 03-21-2024 History of Present illness Narrative Radiation Oncology - On Treatment Review (OTR) Note PATIENT NAME: Jaylen Montague PATIENT DIAGNOSIS: Prostate adenocarcinoma, initial PSA 12.1, biopsy Vernon score 4 + 3 = 7 (grade group 3), clinical stage T2a, N0, M0, stage IIC [T1-T2, N0, M0, PSA <20, GG 3] (AJCC 8th ed.), s/p TRUS Random and MR Targeted biopsy. COURSE: definitive Current dose: 180 cGy in 1 fx Planned dose: 4500 cGy in 25 fx SUBJECTIVE: Here to start radiation, doing much better after recent COVID infection. PHYSICAL EXAM: KPS: 100 General Appearance: Alert and oriented. No acute distress. IMAGING/LAB RESULTS: None TOXICITY ASSESSMENT (CTC v4.0): Fatigue:grade 1 - Fatigue relieved by rest Radiation Dermatitis: grade 0 - No symptoms Diarrhea:grade 0 - No symptoms Proctitis: grade 0 - No symptoms Urinary frequency: grade 0 - No symptoms Dysuria: grade 0 - No symptoms Urinary incontinence: grade 0 (No symptoms) Urinary retention: grade 0 - No symptoms Treatment chart checked: Yes Patient treatment site reviewed and verified:Yes Port films reviewed and current:Yes Medications started: None ASSESSMENT/PLAN: Patient starting radiation today. Plan of care and expectations again reviewed. Plan, MU calculations and qa report reviewed. Initial imaging including cone beam ct and verification reviewed and approved. First treatment given. Continue radiation as prescribed. Lisa Rausch MD documented in this encounter [facility] 03-09-2024 History of Present illness Narrative CLARI JAYLEN [id number] 03/09/2024 [facility] Radiation Oncology Department SIMULATION NOTE DATE OF SIMULATION: 03/09/2024 THERAPIST: Deepthi Vasquez MACHINE: in[employer] DIAGNOSIS: Malignant neoplasm of [id number] AREA: prostate CONTRAST: None Consent in Epic: Yes PATIENT POSITION: Supine. FIXATION DEVICE: In order to achieve accurate and reproducible treatments, the patient is immobilized with the orfit AIO system. A time-out was conducted and recorded by the therapist. CT scan was completed for target localization and planning. Field arrangement will be determined after plan has been completed. The patient is scheduled for a verification simulation on the treatment machine to ensure proper set-up and field arrangement is correct prior to the first treatment of primary and boost kemp if applicable. Patient education will be completed per nursing. Electronically Signed Yves Rausch M.D. / CANDIDO 43:46 PM documented in this encounter [facility] 03-09-2024 History of Present illness Narrative CLARIJAYLEN [id number] 03/09/2024 [facility] Department of Radiation Oncology Treatment Planning Note For reasons stated in the consult note, Jaylen Montague is a candidate for radiation therapy. Based on review and interpretation of the relevant diagnostic studies together with the exam findings, Jaylen Montague was simulated on 03/09/2024 at which time the target volume and/or requisite kemp were delineated, as indicated in the simulation note, to be treated according to the prescription. The treatment target and organs at risk were contoured on the simulation scan using the fused MRI. After reviewing multiple treatment plans with dosimetry, the best plan was approved to deliver the prescribed course of radiation to the target area using inverse planning to allow for the best isodose distribution, treating to the 97.4% isodose line with 10 MV and 3 kemp. Custom MLCs for IMRT were the treatment devices used to shape/modify the beams. Limiting dose to normal tissue was confirmed upon review of the calculated dose volume histogram. IMRT planning was used because it best met the dose/volume constraints for the organs at risk for this patient, better than what could be achieved using conventional or 3D planning. The specific dose requirements for the PTV, organs at risk and dose-volume histograms are contained in this treatment plan and/or elsewhere in the medical record. A completed summary of this plan dated 03/18/2024 incorporated herein by reference includes dose, beam arrangements, energy, blocking, isodose distribution, and/or ports and DVH. Electronically Signed Yves Rausch M.D. 48:39 AM documented in this encounter [facility] 03-09-2024 Note HNO ID: [id number] Author: Lisa RAUSCH MD Service: ? Author Type: Physician Type: Progress Notes Filed: 03/21/2024 08:39 Note Text: JAYLEN MONTAGUE [id number] 03/09/2024 [facility] Department of Radiation Oncology Treatment Planning Note For reasons stated in the consult note, Jaylen Montague is a candidate for radiation therapy. Based on review and interpretation of the relevant diagnostic studies together with the exam findings, Jaylen Montague was simulated on 03/09/2024 at which time the target volume and/or requisite kemp were delineated, as indicated in the simulation note, to be treated according to the prescription. The treatment target and organs at risk were contoured on the simulation scan using the fused MRI. After reviewing multiple treatment plans with dosimetry, the best plan was approved to deliver the prescribed course of radiation to the target area using inverse planning to allow for the best isodose distribution, treating to the 97.4% isodose line with 10 MV and 3 kemp. Custom MLCs for IMRT were the treatment devices used to shape/modify the beams. Limiting dose to normal tissue was confirmed upon review of the calculated dose volume histogram. IMRT planning was used because it best met the dose/volume constraints for the organs at risk for this patient, better than what could be achieved using conventional or 3D planning. The specific dose requirements for the PTV, organs at risk and dose-volume histograms are contained in this treatment plan and/or elsewhere in the medical record. A completed summary of this plan dated 03/18/2024 incorporated herein by reference includes dose, beam arrangements, energy, blocking, isodose distribution, and/or ports and DVH. Electronically Signed Yves Rausch M.D. 48:39 AM [facility] 03-09-2024 Note HNO ID: [id number] Author: Lisa RAUSCH MD Service: ? Author Type: Physician Type: Progress Notes Filed: 03/09/2024 15:46 Note Text: JAYLEN MONTAGUE [id number] 03/09/2024 [facility] Radiation Oncology Department SIMULATION NOTE DATE OF SIMULATION: 03/09/2024 THERAPIST: Deepthi Vasquez MACHINE: in[employer] DIAGNOSIS: Malignant neoplasm of [id number] AREA: prostate CONTRAST: None Consent in Epic: Yes PATIENT POSITION: Supine. FIXATION DEVICE: In order to achieve accurate and reproducible treatments, the patient is immobilized with the orfit AIO system. A time-out was conducted and recorded by the therapist. CT scan was completed for target localization and planning. Field arrangement will be determined after plan has been completed. The patient is scheduled for a verification simulation on the treatment machine to ensure proper set-up and field arrangement is correct prior to the first treatment of primary and boost kemp if applicable. Patient education will be completed per nursing. Electronically Signed Yves Rausch M.D. / CANDIDO 43:46 PM [facility] 03-08-2024 Telephone encounter Note Pt called in to let us know that he tested positive for Covid today. He has a SIM appt today and wanted to let us know as he wasn't sure he was allowed to come in. I did inform him he is able to come in and that we just require him to wear a mask. I also offered the option to postpone simulation for a week. Pt prefers to keep appt and will be seen as scheduled on 03/09. Dolores Green RN [facility] 03-08-2024 Miscellaneous Notes Pt called in to let us know that he tested positive for Covid today. He has a SIM appt today and wanted to let us know as he wasn't sure he was allowed to come in. I did inform him he is able to come in and that we just require him to wear a mask. I also offered the option to postpone simulation for a week. Pt prefers to keep appt and will be seen as scheduled on 03/09. Dolores Green RN documented in this encounter [facility] 02-24-2024 Nurse Note Radiation Therapy - Patient Education Note PATIENT NAME: Jaylen Montague PATIENT February 24, 2024 [facility] FACILITY/LOCATION: [facility] READINESS TO LEARN Cognitive Ability: Alert and oriented Motivation to learn: Interested Family Support: High - Very involved in pt care Instruction provide to: Patient and Spouse Patient learns best by: Multiple Methods Factors effecting learning: None Physical limitations effecting learning: None LEARNING RESPONSE Diagnosis: Pt simulated today for radiation therapy to pelvis. Education Topic/Teaching Points: Radiation therapy, Side effects, and OTV: Method of instruction: Written instruction/Handouts Verbal instruction Patient /Family response: Patient and family verbalized understanding of radiation treatments, side effects, OTV, and transportation. Follow-up plan: Patient instructed to call with any further issues Recommend - Recommend continued instruction and follow up as directed Contact information given. Supplemental material: Informational handouts on Bladder function, Diarrhea, Pelvic handout, and patient education binder. Referral (recommendation): None, Pt denied need for social work, van service, and cook camp. Was PED reviewed? No Patient has an Onbody or Implanted device: unknown Signed by: Jorge Raygoza RN [facility] 02-24-2024 Nurse Note Radiation Therapy - Patient Education Note PATIENT NAME: Jaylen Montague PATIENT February 24, 2024 [facility] FACILITY/LOCATION: [facility] READINESS TO LEARN Cognitive Ability: Alert and oriented Motivation to learn: Interested Family Support: High - Very involved in pt care Instruction provide to: Patient and Spouse Patient learns best by: Multiple Methods Factors effecting learning: None Physical limitations effecting learning: None LEARNING RESPONSE Diagnosis: Pt simulated today for radiation therapy to pelvis. Education Topic/Teaching Points: Radiation therapy, Side effects, and OTV: Method of instruction: Written instruction/Handouts Verbal instruction Patient /Family response: Patient and family verbalized understanding of radiation treatments, side effects, OTV, and transportation. Follow-up plan: Patient instructed to call with any further issues Recommend - Recommend continued instruction and follow up as directed Contact information given. Supplemental material: Informational handouts on Bladder function, Diarrhea, Pelvic handout, and patient education binder. Referral (recommendation): None, Pt denied need for social work, van service, and cook camp. Was PED reviewed? No Patient has an Onbody or Implanted device: unknown Signed by: Jorge Raygoza RN documented in this encounter [facility] 02-24-2024 History of Present illness Narrative Radiation Oncology - Prostate Cancer New Patient/Consult Note PATIENT NAME: Jaylen Montague PATIENT REQUESTING PROVIDER: Dr. Valverde DIAGNOSIS: 73 year old male with prostate adenocarcinoma, initial PSA 12.1, biopsy Vernon score 4 + 3 = 7 (grade group 3), clinical stage T2a, N0, M0, stage IIC [T1-T2, N0, M0, PSA <20, GG 3] (AJCC 8th ed.), s/p TRUS Random and MR Targeted biopsy. HPI: 73 year old male with prostate adenocarcinoma who presents for an opinion regarding the role of radiation therapy in the management of the patient's disease. Final recommendations will be communicated back to the requesting physician by way of the shared medical record, or letter to requesting physician via US mail. The patient was diagnosed with prostate cancer and comes in today to discuss treatment options. Patient presented with an elevated PSA 22 years ago, 6.4. He underwent transrectal ultrasound-guided biopsy May 2022 without obvious findings. He has undergone further surveillance. PSA 04/10/2023 12.3, repeated 12/08/2023 11.56 PSA history: 03/18/2022 6.4 He underwent MRI prostate on 01/20/2024 demonstratin cc gland. No obvious skeletal seminal vesicle or lymph node involvement. Within the prostate and the area of T2 hypointensity involving the posterior right peripheral zone, mid gland, measuring 15 x 10 mm with extracapsular extension described. Prostate biopsy using MRI guidance on February 15, 2024 revealed: Adenocarcinoma, Vernon 4+3, left mid, right base lateral, right base medial, right mid medial, right apex lateral, right apex medial. Evidence of extraprostatic extension as well as perineural invasion described Total # of positive biopsy cores: 9 Total # of biopsy cores sampled: 16 Greatest % cancer in any single core: Greater than 50% Staging Studies: MR Results: See HPI PET Scan Results: 02/23/2024:HEAD/NECK: * No PSMA expressing neoplastic process. CHEST: * No PSMA expressing neoplastic process. * Few punctate left pulmonary nodules, below PET resolution and can be followed on subsequent imaging. ABDOMENS/PELVIS: * Intense uptake at the right mid gland posterior peripheral zone, with smaller foci of uptake within the left mid gland posterior peripheral zone and apex, compatible with known malignancy. * No PSMA expressing yi metastases. MUSCULOSKELETAL: * No PSMA expressing neoplastic process. Previous Treatment for Prostate Cancer: None Genomic Testing: None The patient reports the following pertinent history: Urinary frequency (D/N): 4-6/1 Dysuria: No Incontinence: 1- No pads Hematuria: No - Total AUA Score: 5 Bowel Movement Frequency: 1/day Bowel Movement Quality: Normal Blood per Rectum: No Last Colonoscopy: 2014, no polyps at the time, 10-year interval colonoscopy recommended Androgen Deprivation: Yes he was started Lupron Prior Radiation Therapy, Collagen Vascular Disease, or Inflammatory Bowel Disease: No Any implanted or external electric devices? No Currently on Anticoagulation: No History of Hip Replacement: No History of Prior TURP: No ALLERGIES No Known Allergies carBAMazepine (TEGRETOL) 200 mg tablet Take 200 mg by mouth two times a day. Fosinopril Sodium (MONOPRIL) 20 mg tablet Take 1 tablet by mouth once daily. atorvastatin (LIPITOR) 20 mg tablet once daily. doxycycline 20 mg tablet Take 20 mg by mouth two times a day. hydroCHLOROthiazide 25 mg tablet Take 25 mg by mouth once daily. LATANOPROST, PF, OPHTHALMIC Use 1 Drop in both eyes daily at bedtime. No past medical history on file. No past surgical history on file. No family history on file. REVIEW OF SYSTEMS: GENERAL: feeling well without fatigue, no recent change in weight NECK: denies swelling or pain in neck RESPIRATORY: no cough, no wheezing or shortness of breath CARDIOVASCULAR: no chest pain, no palpitations SKIN: no rash NEURO: no numbness or paresthesias and no weakness of the extremities As noted in HPI PHYSICAL EXAM: VS: BP 134/82 Pulse 63 Temp 36.7 C (98.1 F) Resp 18 Wt 120.6 kg (265 lb 14 oz) SpO2 95% KARNOFSKY PERFORMANCE STATUS: 100 General Appearance: Alert and oriented. No acute distress. HEENT: NCAT. Sclera anicteric. PERRL. EOMI. Neck: Normal ROM. No palpable cervical or supraclavicular adenopathy. Chest: No respiratory distress. Lungs clear to auscultation bilaterally. Heart: Regular rate and rhythm. Abdomen: Soft. Nontender. Nondistended. Musculoskeletal: No edema. Normal ROM in extremities. No bone or spine tenderness. Neuro: Speech fluent. Gait normal. No focal deficits. Skin: No rashes noted Lymphatics: No palpable lymphadenopathy. GENITOURINARY: Deferred exam RECTAL: Deferred exam RADIOLOGY/LABORATORY DATA: see HPI ASSESSMENT/PLAN: Prostate adenocarcinoma, initial PSA 12.1, biopsy [place] score 4 + 3 = 7 (grade group 3), clinical stage T2a, N0, M0, stage IIC [T1-T2, N0, M0, PSA <20, GG 3] (AJCC 8th ed.), s/p TRUS Random and MR Targeted biopsy. Prostate cancer (C61), 2019 NCCN Risk Group: Unfavorable Intermediate Risk Group Clinical State: Localized Cancer - New Diagnosis Patient presents with a localized prostate cancer. Overall performance status is excellent. Patient does have several adverse features including grade group 3, greater than 50% biopsy involvement, suggestion of extracapsular extension both by MRI and biopsy as well as PSA greater than 10. Given this I do feel definitive treatment is warranted. Discussed definitive options including Mohs surgery and radiation approaches. In terms of radiation discussed both external beam, and brachytherapy both chemotherapy as well as following external beam as a boost. Discussed potential role of ADT. Given several risk factors as noted above I do feel treatment of the pelvis is warranted. Discussed primary external beam treatments with IMRT versus brachytherapy boost. After long discussion patient wants to proceed with external beam/IMRT followed by brachytherapy boost. Discussed acute and long-term risks of treatment approaches. Discussed potential increased toxicity with combination approach. Discussed radiation safety precautions. Patient has started ADT, and agree with this send did discuss role of ADT. Will have him back for simulation and will initiate treatment in the next several weeks. Will coordinate brachytherapy implant with Dr. Valverde. Signed by: Lisa Rausch MD cc: To use this Smartlink, specify the provider ID whose address you want to display, e.g., .[email or web address] (where 1 is the provider ID). Dr. Valverde documented in this encounter [facility] 02-24-2024 Note HNO ID: [id number] Author: Lisa RAUSCH MD Service: ? Author Type: Physician Type: Progress Notes Filed: 02/24/2024 14:51 Note Text: Radiation Oncology - Prostate Cancer New Patient/Consult Note PATIENT NAME: Jaylen Montague PATIENT REQUESTING PROVIDER: Dr. Valverde DIAGNOSIS: 73 year old male with prostate adenocarcinoma, initial PSA 12.1, biopsy Vernon score 4 + 3 = 7 (grade group 3), clinical stage T2a, N0, M0, stage IIC [T1-T2, N0, M0, PSA <20, GG 3] (AJCC 8th ed.), s/p TRUS Random and MR Targeted biopsy. HPI: 73 year old male with prostate adenocarcinoma who presents for an opinion regarding the role of radiation therapy in the management of the patient's disease. Final recommendations will be communicated back to the requesting physician by way of the shared medical record, or letter to requesting physician via [place] mail. The patient was diagnosed with prostate cancer and comes in today to discuss treatment options. Patient presented with an elevated PSA 22 years ago, 6.4. He underwent transrectal ultrasound-guided biopsy May 2022 without obvious findings. He has undergone further surveillance. PSA 04/10/2023 12.3, repeated 12/08/2023 11.56 PSA history: 03/18/2022 6.4 He underwent MRI prostate on 01/20/2024 demonstratin cc gland. No obvious skeletal seminal vesicle or lymph node involvement. Within the prostate and the area of T2 hypointensity involving the posterior right peripheral zone, mid gland, measuring 15 x 10 mm with extracapsular extension described. Prostate biopsy using MRI guidance on February 15, 2024 revealed: Adenocarcinoma, Vernon 4+3, left mid, right base lateral, right base medial, right mid medial, right apex lateral, right apex medial. Evidence of extraprostatic extension as well as perineural invasion described Total # of positive biopsy cores: 9 Total # of biopsy cores sampled: 16 Greatest % cancer in any single core: Greater than 50% Staging Studies: MR Results: See HPI PET Scan Results: 02/23/2024:HEAD/NECK: * No PSMA expressing neoplastic process. CHEST: * No PSMA expressing neoplastic process. * Few punctate left pulmonary nodules, below PET resolution and can be followed on subsequent imaging. ABDOMENS/PELVIS: * Intense uptake at the right mid gland posterior peripheral zone, with smaller foci of uptake within the left mid gland posterior peripheral zone and apex, compatible with known malignancy. * No PSMA expressing yi metastases. MUSCULOSKELETAL: * No PSMA expressing neoplastic process. Previous Treatment for Prostate Cancer: None Genomic Testing: None The patient reports the following pertinent history: Urinary frequency (D/N): 4-6/1 Dysuria: No Incontinence: 1- No pads Hematuria: No - Total AUA Score: 5 Bowel Movement Frequency: 1/day Bowel Movement Quality: Normal Blood per Rectum: No Last Colonoscopy: 2014, no polyps at the time, 10-year interval colonoscopy recommended Androgen Deprivation: Yes he was started Lupron Prior Radiation Therapy, Collagen Vascular Disease, or Inflammatory Bowel Disease: No Any implanted or external electric devices? No Currently on Anticoagulation: No History of Hip Replacement: No History of Prior TURP: No ALLERGIES No Known Allergies carBAMazepine (TEGRETOL) 200 mg tablet Take 200 mg by mouth two times a day. Fosinopril Sodium (MONOPRIL) 20 mg tablet Take 1 tablet by mouth once daily. atorvastatin (LIPITOR) 20 mg tablet once daily. doxycycline 20 mg tablet Take 20 mg by mouth two times a day. hydroCHLOROthiazide 25 mg tablet Take 25 mg by mouth once daily. LATANOPROST, PF, OPHTHALMIC Use 1 Drop in both eyes daily at bedtime. No past medical history on file. No past surgical history on file. No family history on file. REVIEW OF SYSTEMS: GENERAL: feeling well without fatigue, no recent change in weight NECK: denies swelling or pain in neck RESPIRATORY: no cough, no wheezing or shortness of breath CARDIOVASCULAR: no chest pain, no palpitations SKIN: no rash NEURO: no numbness or paresthesias and no weakness of the extremities As noted in HPI PHYSICAL EXAM: VS: BP 134/82 Pulse 63 Temp 36.7 ?C (98.1 ?F) Resp 18 Wt 120.6 kg (265 lb 14 oz) SpO2 95% KARNOFSKY PERFORMANCE STATUS: 100 General Appearance: Alert and oriented. No acute distress. HEENT: NCAT. Sclera anicteric. PERRL. EOMI. Neck: Normal ROM. No palpable cervical or supraclavicular adenopathy. Chest: No respiratory distress. Lungs clear to auscultation bilaterally. Heart: Regular rate and rhythm. Abdomen: Soft. Nontender. Nondistended. Musculoskeletal: No edema. Normal ROM in extremities. No bone or spine tenderness. Neuro: Speech fluent. Gait normal. No focal deficits. Skin: No rashes noted Lymphatics: No palpable lymphadenopathy. GENITOURINARY: Deferred exam RECTAL: Deferred exam RADIOLOGY/LABORATORY DATA: see HPI ASSESSMENT/PLAN: Prost (more content not included)... [facility] 02-24-2024 Note Education (RADTSA) JAYLEN MONTAGUE ([id number]) 1950 M Date Time Provider Department 02/24/24 JORGE RAYGOZA Reason for Visit: Patient Education [91] Visit Notes: >> [email or web address] Wed Feb 24, 2024 3:09 PM Status: Signed Radiation Therapy - Patient Education Note PATIENT NAME: Jaylen Montague PATIENT February 24, 2024 [facility] FACILITY/LOCATION: [facility] READINESS TO LEARN Cognitive Ability: Alert and oriented Motivation to learn: Interested Family Support: High - Very involved in pt care Instruction provide to: Patient and Spouse Patient learns best by: Multiple Methods Factors effecting learning: None Physical limitations effecting learning: None LEARNING RESPONSE Diagnosis: Pt simulated today for radiation therapy to pelvis. Education Topic/Teaching Points: Radiation therapy, Side effects, and OTV: Method of instruction: Written instruction/Handouts Verbal instruction Patient /Family response: Patient and family verbalized understanding of radiation treatments, side effects, OTV, and transportation. Follow-up plan: Patient instructed to call with any further issues Recommend - Recommend continued instruction and follow up as directed Contact information given. Supplemental material: Informational handouts on Bladder function, Diarrhea, Pelvic handout, and patient education binder. Referral (recommendation): None, Pt denied need for social work, van service, and cook camp. Was PED reviewed? No Patient has an Onbody or Implanted device: unknown Signed by: Jorge Raygoza RN During your visit today, we recorded the following information about you: Allergies As of Date: 02/24/2024 (No Known Allergies) Date Reviewed: 02/24/2024 Reviewed by: Coby Rae RN - Fully Assessed Prescriptions as of 02/24/2024 - carBAMazepine (TEGRETOL) 200 mg tablet Take 200 mg by mouth two times a day. - Fosinopril Sodium (MONOPRIL) 20 mg tablet Take 1 tablet by mouth once daily. - atorvastatin (LIPITOR) 20 mg tablet once daily. - doxycycline 20 mg tablet Take 20 mg by mouth two times a day. - hydroCHLOROthiazide 25 mg tablet Take 25 mg by mouth once daily. - LATANOPROST, PF, OPHTHALMIC Use 1 Drop in both eyes daily at bedtime. Encounter Status:Closed by JORGE RAYGOZA on 02/24/24 [facility] 02-23-2024 History of Present illness Narrative Radiology Service Progress Note DATE OF SERVICE: February 23, 2024 TIME: 1:31 PM PATIENT WEIGHT: 85kg PATIENT IDENTITY VERIFICATION COMPLETED USING TWO (2) STANDARD IDENTIFIERS: Name and Date of confirmed by patient verbally. FALL SCREENING: Has the patient had 2 falls in the last year or 1 fall with injury or currently using an Ambulatory Assistive Device (Walker, Cane, Wheelchair, Crutches, etc.)? No PATIENT GENDER DATA: Male ALLERGIES: Reviewed and unchanged CONTRAST ALLERGY: No EXAM: CT -CONTRAST INDUCED NEPHROPATHY RISK FACTORS: Not applicable CREATININE: No results found for: CREAT , EGFROTH , EGFRAA P.O.C.T. RESULTS: POC done: Yes, See Lab Tab February 23, 2024 TREATMENT: N/A and No Hydration needed. IV SITE: Ambulatory: A peripheral IV was started in the Right forearm with a Angio cath: 22 gauge. IV SITE APPEARANCE: Clean,Dry and Intact SIGNATURE: Iona Benítez RN PATIENT NAME: Jaylen Montague DATE: February 23, 2024 TIME: 1:31 PM RADIOLOGY SERVICE PROGRESS NOTE SERVICE DATE: 02/23/2024 SERVICE TIME: 2:27 PM PATIENT IDENTITY VERIFICATION COMPLETED USING TWO (2) STANDARD IDENTIFIERS: Name and Date of confirmed by patient verbally POST EXAM PIV STATUS: Discontinued PROCEDURE TYPE: NM INJECT: PET/CT BODY SCAN. 8.8 mCi [id number]. No other medications given.. ADMINISTRATION TIME: 1339 PATIENT DISCHARGED TO: Ambulatory patient, left [place] department area. A Diagnostic radioactive procedure has taken place, with no further precautions necessary other than routine body substance precautions. More information regarding radiation safety can be found using this link: [email or web address] %[email or web address] SIGNATURE: RT Lucas(R) PATIENT NAME: Jaylen Montague DATE: February 23, 2024 TIME: 2:27 PM PAGER/CONTACT #: documented in this encounter [facility] 02-23-2024 Note HNO ID: [id number] Author: CARMELA GAN RT(R) Service: ? Author Type: Technologist Type: Progress Notes Filed: 02/23/2024 14:28 Note Text: RADIOLOGY SERVICE PROGRESS NOTE SERVICE DATE: 02/23/2024 SERVICE TIME: 2:27 PM PATIENT IDENTITY VERIFICATION COMPLETED USING TWO (2) STANDARD IDENTIFIERS: Name and Date of confirmed by patient verbally POST EXAM PIV STATUS: Discontinued PROCEDURE TYPE: NM INJECT: PET/CT BODY SCAN. 8.8 mCi [id number]. No other medications given.. ADMINISTRATION TIME: 1339 PATIENT DISCHARGED TO: Ambulatory patient, left [place] department area. A Diagnostic radioactive procedure has taken place, with no further precautions necessary other than routine body substance precautions. More information regarding radiation safety can be found using this link: [email or web address] 20Diagnostic%20Nuclear%20Medicine% 20Procedures.pdf SIGNATURE: RT Lucas(R) PATIENT NAME: Jaylen Montague DATE: February 23, 2024 TIME: 2:27 PM PAGER/CONTACT #: [facility] 02-23-2024 Note HNO ID: [id number] Author: IONA BENÍTEZ RN Service: ? Author Type: Registered Nurse Type: Progress Notes Filed: 02/23/2024 13:37 Note Text: Radiology Service Progress Note DATE OF SERVICE: February 23, 2024 TIME: 1:31 PM PATIENT WEIGHT: 85kg PATIENT IDENTITY VERIFICATION COMPLETED USING TWO (2) STANDARD IDENTIFIERS: Name and Date of confirmed by patient verbally. FALL SCREENING: Has the patient had 2 falls in the last year or 1 fall with injury or currently using an Ambulatory Assistive Device (Walker, Cane, Wheelchair, Crutches, etc.)? No PATIENT GENDER DATA: Male ALLERGIES: Reviewed and unchanged CONTRAST ALLERGY: No EXAM: CT -CONTRAST INDUCED NEPHROPATHY RISK FACTORS: Not applicable CREATININE: No results found for: CREAT , EGFROTH , EGFRAA P.O.C.T. RESULTS: POC done: Yes, See Lab Tab February 23, 2024 TREATMENT: N/A and No Hydration needed. IV SITE: Ambulatory: A peripheral IV was started in the Right forearm with a Angio cath: 22 gauge. IV SITE APPEARANCE: Clean,Dry and Intact SIGNATURE: Iona Benítez RN PATIENT NAME: Jaylen Montague DATE: February 23, 2024 TIME: 1:31 PM [facility] 02-18-2024 Telephone encounter Note Patient is scheduled. [facility] 02-18-2024 Miscellaneous Notes Patient is scheduled. 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 Primary Insurance: [employer] Diagnosis: Prostate Cancer C61 Initial/Subsequent: Initial Pathology: 01-29-24 OSH Adenocarcinoma 3+4= 7 GS Labs: 10 months ago PSA 12.1 1 year ago PSA 6.49 Clinical Notes Reviewed: 02-10-24 OSH Date of last: na Additional Information/Imaging: na REV 02.08.24 Initial: Yes if yes, please schedule as requested by patient or office. Subsequent: No If yes, Date of Last Image: Positive Scan: or Negative Scan: , Please answer Yes or No. Isotope used: Positive or Negative Scan? (+) = Schedule at Place of last DOS (-) =Schedule at ANY [facility] site Isotope used: 18F / F18: Please schedule in the Region. GA68: Please schedule at . Auth#: [id number] Date Range 02-10-24 to 08-08-24 for 1 dos NPI: Member ID: Online: Case/Ref#: Notes: Called mesha Lawler corrected place of service and removed name Dr Antelmo Hyman as site name, changed to [facility]. PSMA PET 90291/ Locametz (GALLIUM GA-68 GOZETOTIDE) (6 mCi), A9800- Posluma (FLOTUFOLASTAT F18) (8 mCi), [id number] This form is used for MAIN CAMPUS APPOINTMENTS ONLY. Is this request for a Main [place] PET scan appointment? Yes: Chair Springer: Alexia Aparicio Requesting Person (Last Name, First Name): Dr Valverde Area Code + Phone/Pager: [phone] Who do we call to schedule this appointment? Other Contact: [facility] please route to Juliane gan in [place] Requesting Staff Dr Valverde Area Code + Phone/Pager: [phone] PET Orders (A delay in scheduling will result if the orders are not present at time of review): External. Has the External Clinical Order been scanned into [employer]? Yes ADDITIONAL ACTION MAY BE REQUIRED IF PATIENTS OON INSURANCE OR SELF PAY COVERAGE HAS NOT BEEN CLEARED FOR REQUESTED APPOINTMENT. Scheduling: GEMMA: As soon as insurance will allow What account will this PET appointment be linked to? P/F Type of PET: Oncology: Are there additional diagnostic CT scans required to be done at time of PET scan? No Is the request for a PET MR ? No What account will diagnostic testing appointment be linked to? P/F Will the patient need anesthesia? 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 Primary Insurance: [employer] Diagnosis: Prostate Cancer C61 Initial/Subsequent: Initial Pathology: 01-29-24 OSH Adenocarcinoma 3+4= 7 GS Labs: 10 months ago PSA 12.1 1 year ago PSA 6.49 Clinical Notes Reviewed: 02-10-24 OSH Date of last: na Additional Information/Imaging: na REV 02.08.24 Initial: Yes if yes, please schedule as requested by patient or office. Subsequent: No If yes, Date of Last Image: Positive Scan: or Negative Scan: , Please answer Yes or No. Isotope used: Positive or Negative Scan? (+) = Schedule at Place of last DOS (-) =Schedule at ANY [facility] site Isotope used: 18F / F18: Please schedule in the Region. GA68: Please schedule at . Auth#: [id number] Date Range 02-10-24 to 08-08-24 for 1 dos NPI: Member ID: Online: Case/Ref#: Notes: Called mesha Lawler corrected place of service and removed name Dr Antelmo Hyman as site name, changed to [facility]. PSMA PET 91607/ Locametz (GALLIUM GA-68 GOZETOTIDE) (6 mCi), A9800- Posluma (FLOTUFOLASTAT F18) (8 mCi), [id number] [facility] 02-18-2024 Telephone encounter Note This form is used for MAIN CAMPUS APPOINTMENTS ONLY. Is this request for a Main [place] PET scan appointment? Yes: Chair Springer: Alexia Singh Sec Requesting Person (Last Name, First Name): Dr Valverde Area Code + Phone/Pager: [phone] Who do we call to schedule this appointment? Other Contact: [facility] please route to Juliane gan in [place] Requesting Staff Dr Valverde Area Code + Phone/Pager: [phone] PET Orders (A delay in scheduling will result if the orders are not present at time of review): External. Has the External Clinical Order been scanned into [facility]? Yes ADDITIONAL ACTION MAY BE REQUIRED IF PATIENTS OON INSURANCE OR SELF PAY COVERAGE HAS NOT BEEN CLEARED FOR REQUESTED APPOINTMENT. Scheduling: GEMMA: As soon as insurance will allow What account will this PET appointment be linked to? P/F Type of PET: Oncology: Are there additional diagnostic CT scans required to be done at time of PET scan? No Is the request for a PET MR ? No What account will diagnostic testing appointment be linked to? P/F Will the patient need anesthesia? NO Send requests to [facility] 02-17-2024 Hospital Discharge instructions Patient Education 02/17/2024 15:34:06 Hormone Suppression Therapy for Prostate Cancer Hormone Suppression Therapy for Prostate Cancer Hormone suppression therapy is a treatment for prostate cancer that can help slow the growth of cancer cells in the prostate gland. It is also called androgen deprivation therapy (ADT) or androgen suppression therapy. Hormone suppression therapy targets male sex hormones (androgens) in the body that help cancer cells grow. Hormone suppression therapy alone will not cure prostate cancer, but it can slow the growth of cancer cells and may shrink tumors over time. Your health care provider can help you find the best treatment that fits your lifestyle. Hormone suppression therapy may be used in the following cases: When prostate cancer has spread too far to other places in the body and cannot be cured by surgery or radiation. When a person has health problems that prevent the use of surgery or radiation. Before radiation to help shrink the size of the cancer and make the radiation treatment more effective. If the prostate cancer remains or comes back following treatment with surgery or radiation. What are the types of hormone suppression therapy? Orchiectomy Orchiectomy, also called surgical castration, is a surgery to remove one or both testicles. The testicles make the two main androgens testosterone and dihydrotestosterone (DHT). This surgery reduces the levels of testosterone in the blood, leading to decreased androgen production. Medicine therapy Medicine therapy, also called medical or chemical castration, involves taking medicines to keep your body from making or using androgens. Medicines can do this in one of three ways: 1.Reducing androgen production by the testicles. Luteinizing hormone-releasing hormone (LHRH) agonists. These medicines are injected or implanted under your skin to lower the amount of androgens that your testicles make. Depending on the medicine, they can be given monthly or up to every 3 to 6 months. If you take these medicines, you may also be prescribed other medicines to help with side effects. LHRH antagonists. These medicines also work to lower the amount of androgens made in the testicles, but they work faster than LHRH agonist medicines and have less severe side effects. They are given as a monthly injection under the skin, and they are used when prostate cancer is in an advanced stage. Estrogens. These medicines are female hormones that help to reduce androgen production by the testicles. Estrogens are not used as commonly as other types of hormone suppression therapy due to their side effects. However, they may be used if other treatments do not work. 2.Blocking androgen attachment throughout the body. Anti-androgen medicines, also called androgen receptor antagonists, block areas on the body where androgens attach. These are pills that are usually used in combination with other types of hormone suppression therapy, like orchiectomy and other medicines. 3.Blocking androgen production throughout the body. Androgen synthesis inhibitor medicines. These medicines help to stop other areas of the body from making androgens. They are taken as pills. They may be used if the prostate cancer is advanced and has not gotten better with surgery or other medicines. A steroid medicine may be given with this type of medicine to help with side effects. What are the risks? Hormone suppression therapy may cause side effects, including: Hot flashes. Diarrhea and nausea. Itching. Sexual side effects, such as: ?Decrease or lack of sexual desire. ?Decrease in size of the penis or testicles. ?Inability to get an erection (erectile dysfunction, or impotence). ?Breast tenderness or increase in breast size. Fatigue. Weight gain. Anemia. Thinning of the bones (osteoporosis) and loss of muscle mass. Depression, mood swings, and trouble with thinking or focusing. Hormone suppression therapy may also increase your risk of high blood pressure, increased cholesterol levels, stroke, heart attack, or diabetes. What are the benefits? One of the main benefits of hormone suppression therapy is having additional treatment options. You may have only one type of treatment, or two or more types at the same time. Treatments may be combined to: Help with side effects. Treat advanced cancer. Where to find more information [place] [employer]: www.cancer.org National Cancer [place]: www.cancer.gov Contact a health care provider if: You have pain or side effects that do not get better with treatment. You have trouble urinating. You have new side effects that do not go away. Get help right away if: You have severe chest pain. You have trouble breathing. You have an irregular heartbeat. You have numbness or paralysis in the lower half of your body. You are confused. You have trouble talking or understanding speech. These symptoms may be an emergency. Do not wait to see if the symptoms will go away. Get medical help right away. Call your local emergency services (911 in the [place] Do not drive yourself to the hospital. Summary Hormone suppression therapy is a treatment for prostate cancer that can help to slow the growth of cancer cells in the prostate gland. Hormone suppression therapy alone will not cure prostate cancer, but it can slow the growth of prostate cancer and may shrink tumors over time. Treatment to suppress hormones may include surgery or medicines. Side effects such as hot flashes, changes in sexual function or desire, and weakened bones can result from hormone suppression therapy. This information is not intended to replace advice given to you by your health care provider. Make sure you discuss any questions you have with your health care provider. Document Revised: 11/21/2021 Document Reviewed: 11/21/2021 [employer] Patient Education 2022 [employer]. Follow Up Care 02/10/2024 11:53:33 With:NICOLLE ALBERTS, James Valente, URL Address: [facility] [address] , [place] [address]- When: Unknown [facility] 02-10-2024 Hospital Discharge instructions Patient Education 02/10/2024 11:36:12 Hormone Suppression Therapy for Prostate Cancer Hormone Suppression Therapy for Prostate Cancer Hormone suppression therapy is a treatment for prostate cancer that can help slow the growth of cancer cells in the prostate gland. It is also called androgen deprivation therapy (ADT) or androgen suppression therapy. Hormone suppression therapy targets male sex hormones (androgens) in the body that help cancer cells grow. Hormone suppression therapy alone will not cure prostate cancer, but it can slow the growth of cancer cells and may shrink tumors over time. Your health care provider can help you find the best treatment that fits your lifestyle. Hormone suppression therapy may be used in the following cases: When prostate cancer has spread too far to other places in the body and cannot be cured by surgery or radiation. When a person has health problems that prevent the use of surgery or radiation. Before radiation to help shrink the size of the cancer and make the radiation treatment more effective. If the prostate cancer remains or comes back following treatment with surgery or radiation. What are the types of hormone suppression therapy? Orchiectomy Orchiectomy, also called surgical castration, is a surgery to remove one or both testicles. The testicles make the two main androgens testosterone and dihydrotestosterone (DHT). This surgery reduces the levels of testosterone in the blood, leading to decreased androgen production. Medicine therapy Medicine therapy, also called medical or chemical castration, involves taking medicines to keep your body from making or using androgens. Medicines can do this in one of three ways: 1.Reducing androgen production by the testicles. Luteinizing hormone-releasing hormone (LHRH) agonists. These medicines are injected or implanted under your skin to lower the amount of androgens that your testicles make. Depending on the medicine, they can be given monthly or up to every 3 to 6 months. If you take these medicines, you may also be prescribed other medicines to help with side effects. LHRH antagonists. These medicines also work to lower the amount of androgens made in the testicles, but they work faster than LHRH agonist medicines and have less severe side effects. They are given as a monthly injection under the skin, and they are used when prostate cancer is in an advanced stage. Estrogens. These medicines are female hormones that help to reduce androgen production by the testicles. Estrogens are not used as commonly as other types of hormone suppression therapy due to their side effects. However, they may be used if other treatments do not work. 2.Blocking androgen attachment throughout the body. Anti-androgen medicines, also called androgen receptor antagonists, block areas on the body where androgens attach. These are pills that are usually used in combination with other types of hormone suppression therapy, like orchiectomy and other medicines. 3.Blocking androgen production throughout the body. Androgen synthesis inhibitor medicines. These medicines help to stop other areas of the body from making androgens. They are taken as pills. They may be used if the prostate cancer is advanced and has not gotten better with surgery or other medicines. A steroid medicine may be given with this type of medicine to help with side effects. What are the risks? Hormone suppression therapy may cause side effects, including: Hot flashes. Diarrhea and nausea. Itching. Sexual side effects, such as: ?Decrease or lack of sexual desire. ?Decrease in size of the penis or testicles. ?Inability to get an erection (erectile dysfunction, or impotence). ?Breast tenderness or increase in breast size. Fatigue. Weight gain. Anemia. Thinning of the bones (osteoporosis) and loss of muscle mass. Depression, mood swings, and trouble with thinking or focusing. Hormone suppression therapy may also increase your risk of high blood pressure, increased cholesterol levels, stroke, heart attack, or diabetes. What are the benefits? One of the main benefits of hormone suppression therapy is having additional treatment options. You may have only one type of treatment, or two or more types at the same time. Treatments may be combined to: Help with side effects. Treat advanced cancer. Where to find more information [place] [employer]: www.cancer.org National Cancer [place]: www.cancer.gov Contact a health care provider if: You have pain or side effects that do not get better with treatment. You have trouble urinating. You have new side effects that do not go away. Get help right away if: You have severe chest pain. You have trouble breathing. You have an irregular heartbeat. You have numbness or paralysis in the lower half of your body. You are confused. You have trouble talking or understanding speech. These symptoms may be an emergency. Do not wait to see if the symptoms will go away. Get medical help right away. Call your local emergency services (911 in the [place] Do not drive yourself to the hospital. Summary Hormone suppression therapy is a treatment for prostate cancer that can help to slow the growth of cancer cells in the prostate gland. Hormone suppression therapy alone will not cure prostate cancer, but it can slow the growth of prostate cancer and may shrink tumors over time. Treatment to suppress hormones may include surgery or medicines. Side effects such as hot flashes, changes in sexual function or desire, and weakened bones can result from hormone suppression therapy. This information is not intended to replace advice given to you by your health care provider. Make sure you discuss any questions you have with your health care provider. Document Revised: 11/21/2021 Document Reviewed: 11/21/2021 [employer] Patient Education 2022 [employer]. 02/10/2024 11:36:11 Brachytherapy for Prostate Cancer Brachytherapy for Prostate Cancer Brachytherapy for prostate cancer is a type of internal radiation treatment that involves placing a source of radiation right inside the prostate gland. This allows the delivery of a higher dose of radiation than would be possible with external radiation therapy treatment. There are many types of brachytherapy: Low-dose rate (LDR) therapy. This involves temporary or permanent implants of radioactive seeds or pellets that give off a low dose of radiation. ?Temporary low-dose implants are left in the prostate for 1 7 days. The radioactive material is contained within a delivery tool, which may be a needle, a small, thin tube (catheter), or another type of applicator. You will need to stay in the hospital while the delivery tool and radioactive material are in place. ?Permanent low-dose implants are left in the prostate. They slowly give off radiation for many months after they are inserted. After the radiation is gone, they just stay in the body. They do not cause any harm and are not removed. High-dose rate (HDR) therapy. This involves inserting a material that gives off a higher dose of radiation for only a few minutes. The radioactive material is often wires or ribbons contained within a delivery tool (needle, applicator, or catheter). The delivery tool is removed after treatment, and no radioactive material is left in the prostate. In brachytherapy, the radiation does not travel far from the prostate, so healthy tissues around the prostate receive only a small dose of radiation. This helps to protect those tissues from injury. In some cases, brachytherapy may be given along with external beam radiation. Tell a health care provider about: Any allergies you have. All medicines you are taking, including vitamins, herbs, eye drops, creams, and [id number]-ekkfqvw medicines. Any problems you or family members have had with anesthetic medicines. Any bleeding problems you have. Any surgeries you have had. Any medical conditions you have. Any prostate infections you have had. What are the risks? Generally, this is a safe procedure. However, problems may occur, including: Inflammation of the rectum. Problems getting or keeping an erection (erectile dysfunction). Inability to control when you urinate or have bowel movements (incontinence). Damage to nearby structures or organs. Diarrhea. Bleeding. What happens before the procedure? Staying hydrated Follow instructions from your health care provider about hydration, which may include: Up to 2 hours before the procedure you may continue to drink clear liquids, such as water, clear fruit juice, black coffee, and plain tea. Eating and drinking restrictions Follow instructions from your health care provider about eating and drinking, which may include: 8 hours before the procedure stop eating heavy meals or foods, such as meat, fried foods, or fatty foods. 6 hours before the procedure stop eating light meals or foods, such as toast or cereal. 6 hours before the procedure stop drinking milk or drinks that contain milk. 2 hours before the procedure stop drinking clear liquids. Medicines Ask your health care provider about: ?Changing or stopping your regular medicines. This is especially important if you are taking diabetes medicines or blood thinners. ?Taking medicines such as aspirin and ibuprofen. These medicines can thin your blood. Do not take these medicines unless your health care provider tells you to take them. ?Taking [id number]-srhjpbt medicines, vitamins, herbs, and supplements. Follow your health care provider's instructions about cleaning out your bowels. Surgery safety Ask your health care provider: How your surgery site will be marked. What steps will be taken to help prevent infection. These may include: ?Removing hair at the procedure site. ?Washing skin with a germ-killing soap. ?Taking antibiotic medicine before and after the procedure. General instructions You may have exams or testing done before or after the procedure. Blood or urine samples may be taken. You may need imaging tests, such as a CT scan or an MRI. Do not use any products that contain nicotine or tobacco for at least 4 weeks before the procedure. This includes cigarettes, chewing tobacco, and vaping devices, such as e-cigarettes. If you need help quitting, ask your health care provider. Plan to have a responsible adult take you home from the hospital or clinic. Plan to have a responsible adult care for you for the time you are told after you leave the hospital or clinic. What happens during the procedure? An IV will be put into one of the veins in your arm or hand. You may be given: ?A medicine to help you relax (sedative). ?A medicine to numb the area (local anesthetic). ?A medicine to make you fall asleep (general anesthetic). A thin, flexible tube (Gutierrez catheter) might be put into your penis, through your urethra, and into your bladder to drain your urine. Your surgeon will insert the radioactive material. The method used will depend on whether you are receiving temporary or permanent brachytherapy. Temporary low-dose or high-dose brachytherapy A delivery tool (needle, applicator, or catheter) will be put into the prostate. It will be inserted through a body cavity, like the rectum, or through the perineum, which is the area beneath the scrotum. An X-ray, ultrasound, MRI, or CT scan will be used to guide the delivery tool into the prostate. Radioactive seeds, pellets, wires, or ribbons will be fed through the delivery tool. If the high-dose method is used: ?The radioactive material will be left in for a few minutes and then removed. ?When the treatment is finished, the delivery tool will be removed. If the low-dose method is used: ?The delivery tool containing the radioactive material will stay in place for 1 7 days. ?You will stay in the hospital while the implant is in place. ?When the treatment is finished, the radioactive material and delivery tool will be removed. Permanent low-dose brachytherapy A tube or needle will be used to inject small, radioactive seeds or pellets into your prostate. The needle or tube will be removed, leaving the seeds or pellets in the prostate. The procedure may vary among health care providers and hospitals. What happens after the procedure? Your blood pressure, heart rate, breathing rate, and blood oxygen level will be monitored until you leave the hospital or clinic. If you were given a sedative during the procedure, it can affect you for several hours. Do not drive or operate machinery until your health care provider says that it is safe. If radiation seeds were left in your prostate, be sure you understand any safety precautions you are to follow at home. Summary Brachytherapy for prostate cancer is a type of radiation treatment that involves placing a source of radiation right inside the prostate gland. There are several types of brachytherapy for prostate cancer: low-dose temporary treatment, low-dose permanent treatment, and high-dose temporary treatment. The amount of time that the source of radiation is left in your prostate will depend on the type of brachytherapy you are having. This information is not intended to replace advice given to you by your health care provider. Make sure you discuss any questions you have with your health care provider. Document Revised: 11/06/2021 Document Reviewed: 11/06/2021 [employer] Patient Education 2022 [employer]. 02/10/2024 11:19:13 Prostate Cancer Prostate Cancer The prostate is a small gland that produces fluid that makes up semen (seminal fluid). It is located below the bladder in men, in front of the rectum. Prostate cancer is the abnormal growth of cells in the prostate gland. What are the causes? The exact cause of this condition is not known. What increases the risk? You are more likely to develop this condition if: You are 65 years of age or older. You have a family history of prostate cancer. You have a family history of breast and ovarian cancer. You have genes that are passed from parent to child (inherited), such as BRCA1 and BRCA2. You have Amato syndrome. men and men of descent are diagnosed with prostate cancer at higher rates than other men. The reasons for this are not well understood and are likely due to a combination of genetic and environmental factors. What are the signs or symptoms? Symptoms of this condition include: Problems with urination. This may include: ?A weak or interrupted flow of urine. ?Trouble starting or stopping urination. ?Trouble emptying the bladder all the way. ?The need to urinate more often, especially at night. Blood in urine or semen. Persistent pain or discomfort in the lower back, lower abdomen, or hips. Trouble getting an erection. Weakness or numbness in the legs or feet. How is this diagnosed? This condition can be diagnosed with: A digital rectal exam. For this exam, a health care provider inserts a gloved finger into the rectum to feel the prostate gland. A blood test called a prostate-specific antigen (PSA) test. A procedure in which a sample of tissue is taken from the prostate and checked under a microscope (prostate biopsy). An imaging test called transrectal ultrasonography. Once the condition is diagnosed, tests will be done to determine how far the cancer has spread. This is called staging the cancer. Staging may involve imaging tests, such as a bone scan, CT scan, PET scan, or MRI. Stages of prostate cancer The stages of prostate cancer are as follows: Stage 1 (I). At this stage, the cancer is found in the prostate only. The cancer is not visible on imaging tests, and it is usually found by accident, such as during prostate surgery. Stage 2 (II). At this stage, the cancer is more advanced than it is in stage 1, but the cancer has not spread outside the prostate. Stage 3 (III). At this stage, the cancer has spread beyond the outer layer of the prostate to nearby tissues. The cancer may be found in the seminal vesicles, which are near the bladder and the prostate. Stage 4 (IV). At this stage, the cancer has spread to other parts of the body, such as the lymph nodes, bones, bladder, rectum, liver, or lungs. Prostate cancer grading Prostate cancer is also graded according to how the cancer cells look under a microscope. This is called the Milford score and the total score can range from 6 10, indicating how likely it is that the cancer will spread (metastasize) to other parts of the body. The higher the score, the greater the likelihood that the cancer will spread. Mil[place] 6 or lower: This indicates that the cancer cells look similar to normal prostate cells (well differentiated). [place] 7: This indicates that the cancer cells look somewhat similar to normal prostate cells (moderately differentiated). [place] 8, 9, or 10: This indicates that the cancer cells look very different than normal prostate cells (poorly differentiated). How is this treated? Treatment for this condition depends on several factors, including the stage of the cancer, your age, personal preferences, and your overall health. Talk with your health care provider about treatment options that are recommended for you. Common treatments include: Observation for early stage prostate cancer (active surveillance). This involves having exams, blood tests, and in some cases, more biopsies. For some men, this is the only treatment needed. Surgery. Types of surgeries include: ?Open surgery (radical prostatectomy). In this surgery, a larger incision is made to remove the prostate. ?A laparoscopic radical prostatectomy. This is a surgery to remove the prostate and lymph nodes through several small incisions. It is often referred to as a minimally invasive surgery. ?A robotic radical prostatectomy. This is laparoscopic surgery to remove the prostate and lymph nodes with the help of robotic arms that are controlled by the surgeon. ?Cryoablation. This is surgery to freeze and destroy cancer cells. Radiation treatment. Types of radiation treatment include: ?External beam radiation. This type aims beams of radiation from outside the body at the prostate to destroy cancerous cells. ?Brachytherapy. This type uses radioactive needles, seeds, wires, or tubes that are implanted into the prostate gland. Like external beam radiation, brachytherapy destroys cancerous cells. An advantage is that this type of radiation limits the damage to surrounding tissue and has fewer side effects. Chemotherapy. This treatment kills cancer cells or stops them from multiplying. It kills both cancer cells and normal cells. Targeted therapy. This treatment uses medicines to kill cancer cells without damaging normal cells. Hormone treatment. This treatment involves taking medicines that act on testosterone, one of the male hormones, by: ?Stopping your body from producing testosterone. ?Blocking testosterone from reaching cancer cells. Follow these instructions at home: Lifestyle Do not use any products that contain nicotine or tobacco. These products include cigarettes, chewing tobacco, and vaping devices, such as e-cigarettes. If you need help quitting, ask your health care provider. Eat a healthy diet. To do this: ?Eat foods that are high in fiber. These include beans, whole grains, and fresh fruits and vegetables. ?Limit foods that are high in fat and sugar. These include fried or sweet foods. Treatment for prostate cancer may affect sexual function. If you have a partner, continue to have intimate moments. This may include touching, holding, hugging, and caressing your partner. Get plenty of sleep. Consider joining a support group for men who have prostate cancer. Meeting with a support group may help you learn to manage the stress of having cancer. General instructions Take [id number] and prescription medicines only as told by your health care provider. If you have to go to the hospital, notify your cancer specialist (oncologist). Keep all follow-up visits. This is important. Where to find more information [place] [employer]: www.cancer.org [place] [employer]: www.cancer.net National Cancer [place]: www.cancer.gov Contact a health care provider if: You have new or increasing trouble urinating. You have new or increasing blood in your urine. You have new or increasing pain in your hips, back, or chest. Get help right away if: You have weakness or numbness in your legs. You cannot control urination or your bowel movements (incontinence). You have chills or a fever. Summary The prostate is a small gland that is involved in the production of semen. It is located below a man's bladder, in front of the rectum. Prostate cancer is the abnormal growth of cells in the prostate gland. Treatment for this condition depends on the stage of the cancer, your age, personal preferences, and your overall health. Talk with your health care provider about treatment options that are recommended for you. Consider joining a support group for men who have prostate cancer. Meeting with a support group may help you learn to manage the stress of having cancer. This information is not intended to replace advice given to you by your health care provider. Make sure you discuss any questions you have with your health care provider. Document Revised: 11/06/2021 Document Reviewed: 11/06/2021 [employer] Patient Education 2022 [employer]. Follow Up Care 01/22/2024 10:19:38 With:NICOLLE ALBERTS, James Valente, URL Address: [facility] [address] [place] [address]- When: Unknown [facility] 12-23-2023 Hospital Discharge instructions Patient Education 12/23/2023 13:31:42 Prostate Cancer Screening Prostate Cancer Screening Prostate cancer screening is testing that is done to check for the presence of prostate cancer in men. The prostate gland is a walnut-sized gland that is located below the bladder and in front of the rectum in males. The function of the prostate is to add fluid to semen during ejaculation. Prostate cancer is one of the most common types of cancer in men. Who should have prostate cancer screening? Screening recommendations vary based on age and other risk factors, as well as between the professional organizations who make the recommendations. In general, screening is recommended if: You are age 50 to 70 and have an average risk for prostate cancer. You should talk with your health care provider about your need for screening and how often screening should be done. Because most prostate cancers are slow growing and will not cause , screening in this age group is generally reserved for men who have a 10- to 15-year life expectancy. You are younger than age 50, and you have these risk factors: ?Having a father, brother, or uncle who has been diagnosed with prostate cancer. The risk is higher if your family member's cancer occurred at an early age or if you have multiple family members with prostate cancer at an early age. ?Being a male who is Black or is of [place] or sub-Saharan descent. In general, screening is not recommended if: You are younger than age 40. You are between the ages of 40 and 49 and you have no risk factors. You are 70 years of age or older. At this age, the risks that screening can cause are greater than the benefits that it may provide. If you are at high risk for prostate cancer, your health care provider may recommend that you have screenings more often or that you start screening at a younger age. How is screening for prostate cancer done? The recommended prostate cancer screening test is a blood test called the prostate-specific antigen (PSA) test. PSA is a protein that is made in the prostate. As you age, your prostate naturally produces more PSA. Abnormally high PSA levels may be caused by: Prostate cancer. An enlarged prostate that is not caused by cancer (benign prostatic hyperplasia, or BPH). This condition is very common in older men. A prostate gland infection (prostatitis) or urinary tract infection. Certain medicines such as male hormones (like testosterone) or other medicines that raise testosterone levels. A rectal exam may be done as part of prostate cancer screening to help provide information about the size of your prostate gland. When a rectal exam is performed, it should be done after the PSA level is drawn to avoid any effect on the results. Depending on the PSA results, you may need more tests, such as: A physical exam to check the size of your prostate gland, if not done as part of screening. Blood and imaging tests. A procedure to remove tissue samples from your prostate gland for testing (biopsy). This is the only way to know for certain if you have prostate cancer. What are the benefits of prostate cancer screening? Screening can help to identify cancer at an early stage, before symptoms start and when the cancer can be treated more easily. There is a small chance that screening may lower your risk of dying from prostate cancer. The chance is small because prostate cancer is a slow-growing cancer, and most men with prostate cancer from a different cause. What are the risks of prostate cancer screening? The main risk of prostate cancer screening is diagnosing and treating prostate cancer that would never have caused any symptoms or problems. This is called overdiagnosisand overtreatment. PSA screening cannot tell you if your PSA is high due to cancer or a different cause. A prostate biopsy is the only procedure to diagnose prostate cancer. Even the results of a biopsy may not tell you if your cancer needs to be treated. Slow-growing prostate cancer may not need any treatment other than monitoring, so diagnosing and treating it may cause unnecessary stress or other side effects. Questions to ask your health care provider When should I start prostate cancer screening? What is my risk for prostate cancer? How often do I need screening? What type of screening tests do I need? How do I get my test results? What do my results mean? Do I need treatment? Where to find more information The [place] [employer]: www.cancer.org [place] [employer]: www.auanet.org Contact a health care provider if: You have difficulty urinating. You have pain when you urinate or ejaculate. You have blood in your urine or semen. You have pain in your back or in the area of your prostate. Summary Prostate cancer is a common type of cancer in men. The prostate gland is located below the bladder and in front of the rectum. This gland adds fluid to semen during ejaculation. Prostate cancer screening may identify cancer at an early stage, when the cancer can be treated more easily and is less likely to have spread to other areas of the body. The prostate-specific antigen (PSA) test is the recommended screening test for prostate cancer, but it has associated risks. Discuss the risks and benefits of prostate cancer screening with your health care provider. If you are age 70 or older, the risks that screening can cause are greater than the benefits that it may provide. This information is not intended to replace advice given to you by your health care provider. Make sure you discuss any questions you have with your health care provider. Document Revised: 02/03/2022 Document Reviewed: 02/03/2022 [employer] Patient Education 2022 [employer]. Follow Up Care 05/27/2023 11:55:34 With:NICOLLE ALBERTS, James Valente, URL Address: [facility] [address] [place] [address]- When: Unknown [facility] 05-27-2023 Hospital Discharge instructions Patient Education 05/27/2023 11:49:52 Prostate Cancer Screening Prostate Cancer Screening Prostate cancer screening is testing that is done to check for the presence of prostate cancer in men. The prostate gland is a walnut-sized gland that is located below the bladder and in front of the rectum in males. The function of the prostate is to add fluid to semen during ejaculation. Prostate cancer is one of the most common types of cancer in men. Who should have prostate cancer screening? Screening recommendations vary based on age and other risk factors, as well as between the professional organizations who make the recommendations. In general, screening is recommended if: You are age 50 to 70 and have an average risk for prostate cancer. You should talk with your health care provider about your need for screening and how often screening should be done. Because most prostate cancers are slow growing and will not cause , screening in this age group is generally reserved for men who have a 10- to 15-year life expectancy. You are younger than age 50, and you have these risk factors: ?Having a father, brother, or uncle who has been diagnosed with prostate cancer. The risk is higher if your family member's cancer occurred at an early age or if you have multiple family members with prostate cancer at an early age. ?Being a male who is Black or is of [place] or sub-Saharan descent. In general, screening is not recommended if: You are younger than age 40. You are between the ages of 40 and 49 and you have no risk factors. You are 70 years of age or older. At this age, the risks that screening can cause are greater than the benefits that it may provide. If you are at high risk for prostate cancer, your health care provider may recommend that you have screenings more often or that you start screening at a younger age. How is screening for prostate cancer done? The recommended prostate cancer screening test is a blood test called the prostate-specific antigen (PSA) test. PSA is a protein that is made in the prostate. As you age, your prostate naturally produces more PSA. Abnormally high PSA levels may be caused by: Prostate cancer. An enlarged prostate that is not caused by cancer (benign prostatic hyperplasia, or BPH). This condition is very common in older men. A prostate gland infection (prostatitis) or urinary tract infection. Certain medicines such as male hormones (like testosterone) or other medicines that raise testosterone levels. A rectal exam may be done as part of prostate cancer screening to help provide information about the size of your prostate gland. When a rectal exam is performed, it should be done after the PSA level is drawn to avoid any effect on the results. Depending on the PSA results, you may need more tests, such as: A physical exam to check the size of your prostate gland, if not done as part of screening. Blood and imaging tests. A procedure to remove tissue samples from your prostate gland for testing (biopsy). This is the only way to know for certain if you have prostate cancer. What are the benefits of prostate cancer screening? Screening can help to identify cancer at an early stage, before symptoms start and when the cancer can be treated more easily. There is a small chance that screening may lower your risk of dying from prostate cancer. The chance is small because prostate cancer is a slow-growing cancer, and most men with prostate cancer from a different cause. What are the risks of prostate cancer screening? The main risk of prostate cancer screening is diagnosing and treating prostate cancer that would never have caused any symptoms or problems. This is called overdiagnosisand overtreatment. PSA screening cannot tell you if your PSA is high due to cancer or a different cause. A prostate biopsy is the only procedure to diagnose prostate cancer. Even the results of a biopsy may not tell you if your cancer needs to be treated. Slow-growing prostate cancer may not need any treatment other than monitoring, so diagnosing and treating it may cause unnecessary stress or other side effects. Questions to ask your health care provider When should I start prostate cancer screening? What is my risk for prostate cancer? How often do I need screening? What type of screening tests do I need? How do I get my test results? What do my results mean? Do I need treatment? Where to find more information The [place] [employer]: www.cancer.org [place] [employer]: www.auanet.org Contact a health care provider if: You have difficulty urinating. You have pain when you urinate or ejaculate. You have blood in your urine or semen. You have pain in your back or in the area of your prostate. Summary Prostate cancer is a common type of cancer in men. The prostate gland is located below the bladder and in front of the rectum. This gland adds fluid to semen during ejaculation. Prostate cancer screening may identify cancer at an early stage, when the cancer can be treated more easily and is less likely to have spread to other areas of the body. The prostate-specific antigen (PSA) test is the recommended screening test for prostate cancer, but it has associated risks. Discuss the risks and benefits of prostate cancer screening with your health care provider. If you are age 70 or older, the risks that screening can cause are greater than the benefits that it may provide. This information is not intended to replace advice given to you by your health care provider. Make sure you discuss any questions you have with your health care provider. Document Revised: 02/03/2022 Document Reviewed: 02/03/2022 [employer] Patient Education 2022 [employer]. Follow Up Care 05/06/2023 12:40:10 With:NICOLLE ALBERTS, James R, URL Address: [facility] [address] , [place] [phone] When:Within 6 Month(s) Comments:michelle/ [email or web address] [facility] [place] 06-25-2022 Hospital Discharge instructions Patient Education 06/25/2022 13:54:03 Benign Prostatic Hyperplasia Benign Prostatic Hyperplasia Benign prostatic hyperplasia (BPH) is an enlarged prostate gland that is caused by the normal aging process and not by cancer. The prostate is a walnut-sized gland that is involved in the production of semen. It is located in front of the rectum and below the bladder. The bladder stores urine and the urethra is the tube that carries the urine out of the body. The prostate may get bigger as a man gets older. An enlarged prostate can press on the urethra. This can make it harder to pass urine. The build-up of urine in the bladder can cause infection. Back pressure and infection may progress to bladder damage and kidney (renal) failure. What are the causes? This condition is part of a normal aging process. However, not all men develop problems from this condition. If the prostate enlarges away from the urethra, urine flow will not be blocked. If it enlarges toward the urethra and compresses it, there will be problems passing urine. What increases the risk? This condition is more likely to develop in men over the age of 50 years. What are the signs or symptoms? Symptoms of this condition include: Getting up often during the night to urinate. Needing to urinate frequently during the day. Difficulty starting urine flow. Decrease in size and strength of your urine stream. Leaking (dribbling) after urinating. Inability to pass urine. This needs immediate treatment. Inability to completely empty your bladder. Pain when you pass urine. This is more common if there is also an infection. Urinary tract infection (UTI). How is this diagnosed? This condition is diagnosed based on your medical history, a physical exam, and your symptoms. Tests will also be done, such as: A post-void bladder scan. This measures any amount of urine that may remain in your bladder after you finish urinating. A digital rectal exam. In a rectal exam, your health care provider checks your prostate by putting a lubricated, gloved finger into your rectum to feel the back of your prostate gland. This exam detects the size of your gland and any abnormal lumps or growths. An exam of your urine (urinalysis). A prostate specific antigen (PSA) screening. This is a blood test used to screen for prostate cancer. An ultrasound. This test uses sound waves to electronically produce a picture of your prostate gland. Your health care provider may refer you to a specialist in kidney and prostate diseases (urologist). How is this treated? Once symptoms begin, your health care provider will monitor your condition (active surveillance or watchful waiting). Treatment for this condition will depend on the severity of your condition. Treatment may include: Observation and yearly exams. This may be the only treatment needed if your condition and symptoms are mild. Medicines to relieve your symptoms, including: ?Medicines to shrink the prostate. ?Medicines to relax the muscle of the prostate. Surgery in severe cases. Surgery may include: ?Prostatectomy. In this procedure, the prostate tissue is removed completely through an open incision or with a laparoscope or robotics. ?Transurethral resection of the prostate (TURP). In this procedure, a tool is inserted through the opening at the tip of the penis (urethra). It is used to cut away tissue of the inner core of the prostate. The pieces are removed through the same opening of the penis. This removes the blockage. ?Transurethral incision (TUIP). In this procedure, small cuts are made in the prostate. This lessens the prostate's pressure on the urethra. ?Transurethral microwave thermotherapy (TUMT). This procedure uses microwaves to create heat. The heat destroys and removes a small amount of prostate tissue. ?Transurethral needle ablation (TUNA). This procedure uses radio frequencies to destroy and remove a small amount of prostate tissue. ?Interstitial laser coagulation (ILC). This procedure uses a laser to destroy and remove a small amount of prostate tissue. ?Transurethral electrovaporization (TUVP). This procedure uses electrodes to destroy and remove a small amount of prostate tissue. ?Prostatic urethral lift. This procedure inserts an implant to push the lobes of the prostate away from the urethra. Follow these instructions at home: Take [id number] and prescription medicines only as told by your health care provider. Monitor your symptoms for any changes. Contact your health care provider with any changes. Avoid drinking large amounts of liquid before going to bed or out in public. Avoid or reduce how much caffeine or alcohol you drink. Give yourself time when you urinate. Keep all follow-up visits as told by your health care provider. This is important. Contact a health care provider if: You have unexplained back pain. Your symptoms do not get better with treatment. You develop side effects from the medicine you are taking. Your urine becomes very dark or has a bad smell. Your lower abdomen becomes distended and you have trouble passing your urine. Get help right away if: You have a fever or chills. You suddenly cannot urinate. You feel lightheaded, or very dizzy, or you faint. There are large amounts of blood or clots in the urine. Your urinary problems become hard to manage. You develop moderate to severe low back or flank pain. The flank is the side of your body between the ribs and the hip. These symptoms may represent a serious problem that is an emergency. Do not wait to see if the symptoms will go away. Get medical help right away. Call your local emergency services (911 in the [place] Do not drive yourself to the hospital. Summary Benign prostatic hyperplasia (BPH) is an enlarged prostate that is caused by the normal aging process and not by cancer. An enlarged prostate can press on the urethra. This can make it hard to pass urine. This condition is part of a normal aging process and is more likely to develop in men over the age of 50 years. Get help right away if you suddenly cannot urinate. This information is not intended to replace advice given to you by your health care provider. Make sure you discuss any questions you have with your health care provider. Document Released: 08/10/2006 Document Revised: 07/05/2019 Document Reviewed: 09/14/2017 [employer] Patient Education 2020 [employer]. Follow Up Care 05/29/2022 13:01:39 With:NICOLLE ALBERTS, James Valente, URL Address: [facility] [address], [place] [address]- When:1 year Comments:W/ PSA [facility] 06-25-2022 Evaluation + Plan note Diagnostic Tests PendingPSA Free & Total 06/25/22 [facility] 06-10-2022 Hospital Discharge instructions Patient Education 06/10/2022 11:25:25 [facility] - Transrectal Ultrasound of the Prostate with US guided biopsy Discharge Instructions (CUSTOM) Transrectal Ultrasound of the Prostate with US guided biopsy Even though there are no visible incisions, multiple prostate biopsies have been taken through the rectum and you need to follow some instructions to minimize the risks of bleeding. You may see some blood in your urine and stool for up to 1 week (and blood in the semen for several months) Diet -You may resume your normal diet, but you may want to avoid alcohol, carbonated drinks, caffeine, and spicy foods, which may increase the irritation from the surgery. -Drink plenty of water to keep the urine clear. Activity -You should limit any physical activity for about 48 hours -No heavy lifting or straining (10 pound limit) -No driving a car and limit long car rides for 2 days -No strenuous exercise -No sexual intercourse until this is discussed with your doctor Bowels -Try to keep your bowel movements soft to minimize straining to have a bowel movement. -You may use a stool softener or over the counter laxative if needed -Difficult bowel movement may lead to straining and bleeding from the prostate Medications -You may resume your home medications unless instructed otherwise -Hold aspirin, ibuprofen, Coumadin (warfarin) and other blood thinners for about two days or until there is no active bleeding unless otherwise instructed -Finish the antibiotic which you have already started Things to watch for which would require an Emergency Room visit or call 911: (this is not a complete list) -Persistent or heavy bleeding or blood clots from the rectum or in the urine -Inability to urinate -Fever over 101.5 degrees Fahrenheit, with or without chills -Severe drug reactions with itching, hives or rash -Tenderness or swelling of the calves, chest pain, or shortness of breath Please call the office to arrange for your post-operative appointment in 1-2 weeks [phone] or [phone] Follow Up Care 05/29/2022 11:44:37 With:James VALVERDE Address: [facility] [address] , [place] [address]- [facility] (1) When:06/24/2022 11:25:12 [facility] 04-23-2022 Hospital Discharge instructions Patient Education 04/23/2022 13:05:49 Prostate Cancer Screening Prostate Cancer Screening The prostate is a walnut-sized gland that is located below the bladder and in front of the rectum in males. The function of the prostate (prostate gland) is to add fluid to semen during ejaculation. Prostate cancer is the second most common type of cancer in men. A screening test for cancer is a test that is done before cancer symptoms start. Screening can help to identify cancer at an early stage, when the cancer can be treated more easily. The recommended prostate cancer screening test is a blood test called the prostate-specific antigen (PSA) test. PSA is a protein that is made in the prostate. As you age, your prostate naturally produces more PSA. Abnormally high PSA levels may be caused by: Prostate cancer. An enlarged prostate that is not caused by cancer (benign prostatic hyperplasia, BPH). This condition is very common in older men. A prostate gland infection (prostatitis). Medicines to assist with hair growth, such as finasteride. Depending on the PSA results, you may need more tests, such as: A physical exam to check the size of your prostate gland. Blood and imaging tests. A procedure to remove tissue samples from your prostate gland for testing (biopsy). Who should have screening? Screening recommendations vary based on age. If you are younger than age 40, screening is not recommended. If you are age 40 54 and you have no risk factors, screening is not recommended. If you are younger than age 55, ask your health care provider if you need screening if you have one of these risk factors: ?Being of -[place] descent. ?Having a family history of prostate cancer. If you are age 55 69, talk with your health care provider about your need for screening and how often screening should be done. If you are older than age 70, screening is not recommended. This is because the risks that screening can cause are greater than the benefits that it may provide (risks outweigh the benefits). If you are at high risk for prostate cancer, your health care provider may recommend that you have screenings more often or start screening at a younger age. You may be at high risk if you: Are older than age 55. Are -[place]onese. Have a father, brother, or uncle who has been diagnosed with prostate cancer. The risk may be higher if your family member's cancer occurred at an early age. What are the benefits of screening? There is a small chance that screening may lower your risk of dying from prostate cancer. The chance is small because prostate cancer is typically a slow-growing cancer, and most men with prostate cancer from a different cause. What are the risks of screening? The main risk of prostate cancer screening is diagnosing and treating prostate cancer that would never have caused any symptoms or problems (overdiagnosis and overtreatment). PSA screening cannot tell you if your PSA is high due to cancer or a different cause. A prostate biopsy is the only procedure to diagnose prostate cancer. Even the results of a biopsy may not tell you if your cancer needs to be treated. Slow-growing prostate cancer may not need any treatment other than monitoring, so diagnosing and treating it may cause unnecessary stress or other side effects. A prostate biopsy may also cause: Infection or fever. A false negative. This is a result that shows that you do not have prostate cancer when you actually do have prostate cancer. Questions to ask your health care provider When should I start prostate cancer screening? What is my risk for prostate cancer? How often do I need screening? What type of screening tests do I need? How do I get my test results? What do my results mean? Do I need treatment? Contact a health care provider if: You have difficulty urinating. You have pain when you urinate or ejaculate. You have blood in your urine or semen. You have pain in your back or in the area of your prostate. You have trouble getting or maintaining an erection (erectile dysfunction, ED). Summary Prostate cancer is a common type of cancer in men. The prostate (prostate gland) is located below the bladder and in front of the rectum. This gland adds fluid to semen during ejaculation. Prostate cancer screening may identify cancer at an early stage, when the cancer can be treated more easily. The prostate-specific antigen (PSA) test is the recommended screening test for prostate cancer. Discuss the risks and benefits of prostate cancer screening with your health care provider. If you are age 70 or older, screening is likely to lead to more risks than benefits (risks outweigh the benefits). This information is not intended to replace advice given to you by your health care provider. Make sure you discuss any questions you have with your health care provider. Document Released: 05/21/2018 Document Revised: 07/23/2018 Document Reviewed: 05/21/2018 [employer] Secure Patient Education 2020 [employer]. Follow Up Care 03/28/2022 09:52:33 With:NICOLLE ALBERTS, James Valente, CURTISL Address: [facility] [address], [place] [address]- When: Unknown [facility] 07-12-2021 Note Admission Informatio n Admitted postop L TKA Hospital Course No acute postop concerns. Pt states doing well. Did some walking yesterday and did well for some reason, postop knee xrays were not completed yesterady in pacu. will get today before d/c Medications Home atorvastatin 20 mg oral tablet, 20 mg= 1 tabs, Oral, HS (at bedtime) carBAMazepine 200 mg oral tablet, 200 mg= 1 tabs, Oral, BID doxycycline 20 mg oral capsule, 20 mg= 1 caps, Oral, q12hr Flonase 50 mcg/inh nasal spray, 50 mcg, Nasal, Daily, PRN fosinopril 20 mg oral tablet, 20 mg= 1 tabs, Oral, Daily hydroCHLOROthiazide 25 mg oral tablet, 25 mg= 1 tabs, Oral, Daily ibuprofen, 400 mg, Oral, q6hr, PRN latanoprost 0.005% ophthalmic solution, 1 drops, Eye-Both, HS (at bedtime) ZyrTEC 10 mg oral tablet, 10 mg= 1 tabs, Oral, qAM Prescriptions aspirin 325 mg oral tablet, 325 mg= 1 tabs, Oral, Daily, Not taking Tylenol Extra Strength 500 mg oral tablet, 1000 mg= 2 tabs, Oral, q6hr, Not taking Procedures and Treatment Provided 07/11/21- L TKA Physical Exam Vitals & Measurements T: 36.4 ?C (Oral) HR: 68 (Peripheral) RR: 16 BP: 158/82 SpO2: 98% HT: 183 cm HT: 183 cm WT: 117.0 kg BMI: 35 BMI: 35 L knee- dressing is clean, dry, intact. DF/PF +. SILT. Sitting comfortably knee at 90d Additional Vitals No qualifying data available. Discharge Plan home 1. Primary osteoarthritis of left knee Plan for dc home today after pt/ot outpt pt scheduled thursday asa/ jaiden dvt prophylaxis pt has rx at home already filled f/u 2 weeks pt has my cell phone number if they need anything Orders: acetaminophen, 1,000 mg, Oral, Tab, QID, First Dose: 07/11/21 15:53:00 EST, Dispense From Location: [id number], 07/11/21 15:53:00 EST acetaminophen, 650 mg, Oral, Tab, q4hr, PRN fever, First Dose: 07/11/21 15:53:00 EST, Dispense From Location: [id number]-[id number], 07/11/21 15:53:00 EST aspirin, 325 mg, Oral, Tab, Daily, First Dose: 07/12/21 9:00:00 EST, Dispense From Location: [id number]-[id number], 07/12/21 3:53:00 EST atorvastatin, 20 mg, Oral, Tab, HS (at bedtime), First Dose: 07/11/21 21:00:00 EST, Dispense From Location: [employer], 07/11/21 14:52:00 EST carBAMazepine, 200 mg, Oral, Tab, BID, First Dose: 07/11/21 21:00:00 EST, Dispense From Location: [id number], 07/11/21 14:52:00 EST ceFAZolin, 1 g, IV Piggyback, Soln-IV, q8hr for 3 doses, infuse over 30 minutes, First Dose: 07/11/21 19:00:00 EST, Stop Date: 07/12/21 18:59:00 EST, Dispense From Location: [employer], Prophylaxis- Pre/Post-Op, 07/11/21 18:36:00 EST cetirizine, 10 mg, Oral, Tab, qAM, First Dose: 07/12/21 9:00:00 EST, Dispense From Location: [employer], 07/11/21 14:52:00 EST docusate, 100 mg, Oral, Cap, BID, First Dose: 07/11/21 21:00:00 EST, Dispense From Location: [facility], 07/11/21 15:53:00 EST doxycycline, 20 mg, Oral, Cap, q12hr, First Dose: 07/11/21 15:00:00 EST, Other (See Comments), 07/11/21 14:52:00 EST fluticasone nasal, 1 sprays, Nasal, Boswell, Daily, PRN allergy symptoms, First Dose: 07/11/21 18:43:00 EST, Dispense From Location: [employer], 07/11/21 14:52:00 EST fosinopril, 20 mg, Oral, Tab, Daily, First Dose: 07/12/21 9:00:00 EST, Dispense From Location: [employer], 07/11/21 14:52:00 EST hydroCHLOROthiazide, 25 mg, Oral, Tab, Daily, First Dose: 07/12/21 9:00:00 EST, Dispense From Location: [id number], 07/11/21 14:52:00 EST latanoprost ophthalmic, 1 drops, Eye-Both, Soln-Ophth, HS (at bedtime), First Dose: 07/11/21 21:00:00 EST, Dispense From Location: [employer], 07/11/21 14:52:00 EST meloxicam, 15 mg, Oral, Tab, Daily, First Dose: 07/12/21 9:00:00 EST, Dispense From Location: [employer], 07/11/21 15:53:00 EST ondansetron, 4 mg, IV Push, Injection, q6hr, PRN nausea, First Dose: 07/11/21 15:53:00 EST, Dispense From Location: Qmrvaup-SUQ-NF, 07/11/21 15:53:00 EST oxyCODONE, 10 mg, Oral, Tab, q4hr, PRN severe pain [7-10 on pain scale], First Dose: 07/11/21 15:53:00 EST, [facility], 07/11/21 15:53:00 EST oxyCODONE, 5 mg, Oral, Tab, q4hr, PRN moderate pain [4-6 on pain scale], First Dose: 07/11/21 15:53:00 EST, Dispense From Location: Shavhzt-ZXF-NWH, 07/11/21 15:53:00 EST sodium chloride, 10 mL, IV Push, Injection, As Indicated, PRN flush, First Dose: 07/11/21 15:53:00 EST, Dispense From Location: Arextro-SUO-LR, 07/11/21 15:53:00 EST Above the Knee Graduated Compression Stocking Activity Restrictions Activity Restrictions Activity Restrictions Activity Restrictions Activity Restrictions Activity Restrictions Activity Restrictions Ambulate Circulation Checks Cooling Device Coughing/Deep Breathing Discharge Patient Discharge Patient Education Discharge Special Instructions Discharge Special Instructions Discharge Special Instructions Discharge Special Instructions Discharge Special Instructions Discharge Special Instructions Discharge Special Instructions Discharge Special Instructions Discharge Special In (more content not included)... [facility] 03-01-2021 Note Admission Informatio n Admitted postop R TKA 02/28/21 Hospital Course No acute postop complications7 Medications Home atorvastatin 20 mg oral tablet, 20 mg= 1 tabs, Oral, HS (at bedtime) carBAMazepine 200 mg oral tablet, 200 mg= 1 tabs, Oral, BID doxycycline 20 mg oral capsule, 20 mg= 1 caps, Oral, q12hr Flonase 50 mcg/inh nasal spray, 50 mcg, Nasal, Daily, PRN fosinopril 20 mg oral tablet, 20 mg= 1 tabs, Oral, Daily hydroCHLOROthiazide 25 mg oral tablet, 25 mg= 1 tabs, Oral, Daily ibuprofen, 600 mg, Oral, q6hr, PRN ZyrTEC 10 mg oral tablet, 10 mg= 1 tabs, Oral, qAM Prescriptions aspirin 325 mg oral tablet, 325 mg= 1 tabs, Oral, Daily oxyCODONE 5 mg oral capsule, 5 mg= 1 caps, Oral, q6hr, PRN Tylenol Extra Strength 500 mg oral tablet, 1000 mg= 2 tabs, Oral, q6hr Procedures and Treatment Provided 02/28/21- R TKA Physical Exam Vitals & Measurements T: 37 ?C (Oral) HR: 62 (Peripheral) RR: 16 BP: 168/88 SpO2: 95% HT: 183 cm WT: 118.3 kg BMI: 35.92 Labs pending- not back yet Per nursing- dressing is clean, dry, intact. No acute concerns per nursing. Ambulating well Additional Vitals No qualifying data available. Discharge Plan Unilateral primary osteoarthritis, right knee Ordered: oxyCODONE, 1 caps, Oral, q6hr, PRN, X 7 days, # 28 caps, 0 Refill(s), 03/07/21 14:49:00 EDT, other reason (Rx) Orders: acetaminophen, 2 tabs, Oral, q6hr, # 100 tabs, 0 Refill(s), other reason (Rx) acetaminophen, 1,000 mg, Oral, Tab, QID, First Dose: 02/28/21 15:27:00 EDT, Dispense From Location: [address] acetaminophen, 650 mg, Oral, Tab, q4hr, PRN fever, First Dose: 02/28/21 15:27:00 EDT, Dispense From Location: [address], 02/28/21 15:27:00 EDT aspirin, 325 mg, Oral, Tab, Daily, First Dose: 03/01/21 9:00:00 EDT, Dispense From Location: [address], 03/01/21 3:27:00 EDT aspirin, 1 tabs, Oral, Daily, # 30 tabs, 0 Refill(s), other reason (Rx) atorvastatin, 20 mg, Oral, Tab, HS (at bedtime), First Dose: 02/28/21 21:00:00 EDT, Dispense From Location: [facility], 02/28/21 14:27:00 EDT carBAMazepine, 200 mg, Oral, Tab, BID, First Dose: 02/28/21 21:00:00 EDT, Dispense From Location: [address] ceFAZolin, 2 g, IV Piggyback, Soln-IV, q8hr for 3 doses, infuse over 30 minutes, First Dose: 02/28/21 15:27:00 EDT, Stop Date: 03/01/21 15:26:00 EDT, Dispense From Location: [facility], Prophylaxis- Pre/Post-Op cetirizine, 10 mg, Oral, Tab, qAM, First Dose: 03/01/21 9:00:00 EDT, Dispense From Location: [facility], 02/28/21 14:27:00 EDT docusate, 100 mg, Oral, Cap, BID, First Dose: 02/28/21 21:00:00 EDT, Dispense From Location: [id number], 02/28/21 15:27:00 EDT fluticasone nasal, 1 sprays, Nasal, Boswell, Daily, PRN allergy symptoms, First Dose: 02/28/21 15:17:00 EDT, [facility], [facility], Oral, Tab, Daily, First Dose: 03/01/21 9:00:00 EDT, [facility], 02/28/21 15:23:00 EDT hydroCHLOROthiazide, 25 mg, Oral, Tab, qAM, First Dose: 03/01/21 9:00:00 EDT, Dispense From Location: Eznrezy-[id number] HYDROmorphone, 0.5 mg, IV Push, Injection, q3hr, PRN breakthrough pain, First Dose: 02/28/21 15:27:00 EDT, Dispense From Location: Ppuwxai-[id number], 02/28/21 15:27:00 EDT ibuprofen, 600 mg, Oral, Tab, q6hr, PRN pain, First Dose: 02/28/21 14:27:00 EDT, Dispense From Location: Niorlfj-YNJ-5X ondansetron, 4 mg, IV Push, Injection, q6hr, PRN nausea, First Dose: 02/28/21 15:27:00 EDT, Dispense From Location: [id number]-[id number], 02/28/21 15:27:00 EDT oxyCODONE, 5 mg, Oral, Tab, q4hr, PRN moderate pain [4-6 on pain scale], First Dose: 02/28/21 15:27:00 EDT, Dispense From Location: [id number], 02/28/21 15:27:00 EDT oxyCODONE, 10 mg, Oral, Tab, q4hr, PRN severe pain [7-10 on pain scale], First Dose: 02/28/21 15:27:00 EDT, Dispense From Location: [id number], 02/28/21 15:27:00 EDT sodium chloride, 10 mL, IV Push, Injection, As Indicated, PRN flush, First Dose: 02/28/21 15:27:00 EDT, Dispense From Location: [address] Above the Knee Graduated Compression Stocking Activity Restrictions Activity Restrictions Activity Restrictions Activity Restrictions Activity Restrictions Activity Restrictions Activity Restrictions Ambulate Basic Metabolic Profile Circulation Checks Cooling Device Coughing/Deep Breathing Discharge Patient Discharge Patient Education Discharge Special Instructions Discharge Special Instructions Discharge Special Instructions Discharge Special Instructions Discharge Special Instructions Discharge Special Instructions Discharge Special Instructions Discharge Special Instructions Discharge Special Instructions Discharge Special Instructions Discharge Wound Care Discharge Wound Care Discontinue IV Dressing/Reinforce & Change Elevate Affected Extremity Hemoglobin and Hematocrit Ice Pack Application Incentive Spirometry Nursing to Encourage Incision Care Intake and Output Occupational Therapy Evaluation and Tr (more content not included)... [facility] 02-28-2021 Note Right knee radiograp hs on 02/28/2021 Clinical History: Postoperative evaluation Comparison: None Findings: 2 views of the right knee were obtained. Postoperative changes compatible with total knee arthroplasty in satisfactory alignment. No hardware complication. No definite fractures. Impression: Postoperative changes compatible with total knee arthroplasty in satisfactory alignment. Final Dictated by: Travis Doherty MD Dictated DT/TM: 02/28/2021 4:51 pm Signed by: Travis Doherty MD Signed (Electronic Signature): 02/28/2021 4:54 pm (If Report Is Signed, Electronically Signed in Other Vendor System) [facility] 02-04-2021 Note Procedure: Upright P A and lateral views of the chest. Clinical information: Preop clearance knee arthroplasty Comparison: None. Findings: Lungs/pleura: No focal acute lung lesions or significant chronic lung findings. No pneumothorax or pleural effusion. Heart/mediastinum: Unremarkable. Bones/soft tissue: No gross acute or aggressive abnormality. DISH throughout. IMPRESSION: 1. No active disease. 2. DISH throughout the thoracic spine. Final Dictated by: Alfred Calzada MD Dictated DT/TM: 02/04/2021 8:28 am Signed by: Alfred Calzada MD Signed (Electronic Signature): 02/04/2021 8:30 am (If Report Is Signed, Electronically Signed in Other Vendor System) [facility] Evaluation + Plan note No data available for this section [facility] Evaluation + Plan note Future Appointments Appointment Date:06/25/2022 01:00:00 PM Scheduled Provider:James VALVERDE MD Location:[facility] [place] Appointment Type:URO Office Visit Diagnostic Tests PendingProstate Histology ([facility]) 06/10/22 [facility] Evaluation + Plan note Future Appointments Appointment Date:12/02/2023 11:15:00 AM Scheduled Provider:James VALVERDE MD [facility] Appointment Type:URO Office Visit Diagnostic Tests PendingPSA Total 05/27/23 [facility] Evaluation + Plan note Future Appointments Appointment Date:12/28/2024 01:15:00 PM Scheduled Provider:James VALVERDE MD [facility] Appointment Type:URO Office Visit Diagnostic Tests PendingPSA Free & Total 12/23/23 [facility] Evaluation + Plan note Future Appointments Appointment Date:02/17/2024 02:45:00 PM Scheduled Provider:James VALVERDE MD Location:[facility] [place] Appointment Type:URO Office Visit Appointment Date:12/28/2024 01:15:00 PM Scheduled Provider:James VALVERDE MD Location:[facility] [place] Appointment Type:URO Office Visit [facility] Evaluation + Plan note Future Appointments Appointment Date:08/31/2024 02:45:00 PM Scheduled Provider:James VALVERDE MD Location:[facility] [place] Appointment Type:URO Office Visit Appointment Date:12/28/2024 01:15:00 PM Scheduled Provider:James VALVERDE MD Location:[facility] [place] Appointment Type:URO Office Visit Diagnostic Tests PendingPSA Total 02/17/24 [facility] Evaluation note No assessment inform ation available [facility] Work Phone: Evaluation note Diagnosis Malignant neoplasm of prostate (HCC)- Primary Malignant neoplasm of prostate [facility] Malignant neoplasm of prostate (HCC)- Primary Malignant neoplasm of prostate [facility] Malignant neoplasm of prostate (HCC)- Primary Malignant [facility]oplasm of prostate [facility] Diagnosis Malignant neoplasm of prostate (HCC)- Primary Malignant neoplasm of prostate [facility] Diagnosis Malignant neoplasm of prostate (HCC) Malignant neoplasm of prostate [facility] Diagnosis Malignant neoplasm of prostate (HCC)- Primary Malignant neoplasm of prostate [facility] Diagnosis Malignant neoplasm of prostate (HCC)- Primary Malignant neoplasm of prostate [facility] Diagnosis Malignant neoplasm of prostate (HCC)- Primary Malignant neoplasm of prostate [facility] Diagnosis Malignant neoplasm of prostate (HCC)- Primary Malignant [facility]oplasm of prostate [facility] Additional Instructions DISCHARGE INSTRUCTIONS FOR PROSTATE BIOPSY The following instructions must be followed very closely: -If you need pain pills, start before pain becomes intense. Antibiotics and pain pills are frequently less upsetting to your stomach if you take them wiht food such as crackers or bread. -If you are having excessive or persistent pain, swelling, bleeding, nausea, vomiting, or any other problems, you should first call your surgeon for advice. If you are unable to contact your surgeon, seek help from a hospital emergency room. If you were given drugs to make you drowsy and/or pain medication, follow these instructions: -You should spend the remainder of the day and evening resting. -You should not attempt to walk, including going to the bathroom, without assistance. You may be lightheaded from the medications you received. -Eat light today to avoid nausea. You should be able to return to your normal diet 24-36 hours after surgery. -For the next 24 hours you should not consume alcohol, attempt to drive, use any power tools, sign important documents or make important personal or business decisions After that, do so if you feel perfectly normal and alert. -Follow carefully any verbal or written instructions your surgeon may have given you. -Even though there are no visible incisions, multiple prostate biopsies have been taken through the rectum, and you need to follow some instructions to minimize the risks of bleeding. -You may see some blood in your urine and stool for up to 1 week (and blood in semen for several months). DIET -You may resume your normal diet, but you may want to start slowly and avoid alcohol, carbonated beverages, caffeine, and spicy food. -Drink plenty of water to keep the urine clear. ACTIVITY -You should limit any physical activity for 48 hours. -No heavy lifting and straining (10 pound limit). -No driving a car and limit long car rides for 2 days. -No strenuous exercise. -No sexual intercourse until this is discussed with your doctor. BOWELS -Try to keep your bowel movements soft to minimize straining to have a bowel movement. You may use a stool softener or over the counter laxative if needed. -Difficult bowel movements may lead to straining and bleeding from the prostate. MEDICATIONS -You may resume your home medications unless otherwise instructed. -[Hold aspirin, ibuprofen, Coumadin (warfarin), and other blood thinners for about two days or until there is no active bleeding unless otherwise instructed.] -Finish the antibiotics which you have already started. THINGS TO WATCH FOR WHICH WOULD REQUIRE AN EMERGENCY ROOM VISIT OR CALL 911 (This is not a complete list) -Persistent or heavy bleeding or blood clots from the rectum or urine. -Inability to urinate. -Fever over 101.5 degrees Fahrenheit, with or without chills. -Severe drug reactions with itching, hives, or rash. -Tenderness or swelling of the calves, chest pain, or shortness of breath. FOLLOW UP -Please call the office to arrange for your post-operative appointment in 1-2 weeks. [ ][facility] Work Phone: Progress note No data available for this section [facility] [place] Reason for referral (narrative) Referred by: James VALVERDE MD [facility] [place] Summary Purpose Family History No Family History Records Found Relationship Condition Age at Onset Recorded Date/T latricia father Malignant neoplasm of prostate Unknown Diabetes mellitus Unknown Not Specified Unknown Advance Directives No Advanced Directives Records Found Advance Directive Response Recorded Date/ Time Advance Directives No April 4:11pm Chief Complaint and Reason for Visit Chief Complaint Elevated PSA Chief Complaint R97.20 N40.0 Z80.42 Chief Complaint R97.20 N40.0 Z80.42 elevated PSA, prostate lesion Chief Complaint R97.20 N40.0 Z80.42 elevated PSA, prostate lesion elevated PSA, prostate lesion Reason for Referral Specialty Diagnoses / Procedures Referred By Contac t Referred To Contact Diagnoses Malignant neoplasm of prostate (HCC) Procedures CT SIM PLANNING RADIATION ONCOLOGY THER RAD SIMULAJ-AIDED FIELD SETTING COMPLEX Lisa Rausch MD [address] [place] [address] [place] [address] Referral ID Status Reason Start Date Expiration Date Visits Requested Visits Authorized [id number] New Request PCP Requested Referral 03/14/2024 06/07/2024 1 1 Additional Source Comments (unrecognized sect ion and content) No Status Records FoundNo Status Records FoundNo Status Records FoundNo Status Records FoundNo Status Records FoundNo Status Records Found INFORMATION SOURCE (unrecogn ized section and content) DATE CREATED AUTHOR 07/27/2021 [facility] DATE CREATED AUTHOR AUTHOR'S ORGANIZ ATION 01/14/2022 [facility] DATE CREATED AUTHOR AUTHOR'S ORGANIZ ATION 11/08/2023 [facility] DATE CREATED AUTHOR AUTHOR'S ORGANIZ ATION 02/06/2024 [facility] DATE CREATED AUTHOR AUTHOR'S ORGANIZ ATION 03/24/2024 [facility] DATE CREATED AUTHOR AUTHOR'S ORGANIZ ATION 05/07/2024 [facility] Care Team (unrecognized sect ion and content) Team Status: Inactive Member Role Status Dates James Valverde MD Attending Provider Active NON STAFF Primary Care Provider Active Team Status: Active Member Role Status Dates NON STAFF Primary Care Provider Active Team Status: Active Member Role Status Dates Reed Fritz DO Primary Care Provider Active Team Status: Inactive Member Role Status Dates James Valverde MD Attending Provider Active St art: January 20, 2024 End: January 20, 2024 Reed Fritz DO Primary Care Provider Active Start: January 20, 2024 End: January 20, 2024 Team Status: Inactive Member Role Status Dates Reed Fritz DO Primary Care Provider Active Start: January 25, 2024 End: January 25, 2024 James Valverde MD Attending Provider Active St art: January 25, 2024 End: January 25, 2024 Team Status: Inactive Member Role Status Dates Reed Fritz DO Primary Care Provider Active Start: January 29, 2024 End: January 29, 2024 James Valverde MD Attending Provider Active St art: January 29, 2024 End: January 29, 2024 Goals (unrecognized section and content) Goals may be documented in a n alternate section Source Comments (unrecognize d section and content) In the event this informatio n is protected by the Federal Confidentiality of Alcohol and Drug Abuse Patient Records regulations: The Federal rules restrict any use of the information to criminally investigate or prosecute any alcohol or drug abuse patient.[facility] the event this information is protected by the Federal Confidentiality of Alcohol and Drug Abuse Patient Records regulations: The Federal rules restrict any use of the information to criminally investigate or prosecute any alcohol or drug abuse patient.[facility] the event this information is protected by the Federal Confidentiality of Alcohol and Drug Abuse Patient Records regulations: The Federal rules restrict any use of the information to criminally investigate or prosecute any alcohol or drug abuse patient.[facility] the event this information is protected by the Federal Confidentiality of Alcohol and Drug Abuse Patient Records regulations: The Federal rules restrict any use of the information to criminally investigate or prosecute any alcohol or drug abuse patient.[facility] the event this information is protected by the Federal Confidentiality of Alcohol and Drug Abuse Patient Records regulations: The Federal rules restrict any use of the information to criminally investigate or prosecute any alcohol or drug abuse patient.[facility] the event this information is protected by the Federal Confidentiality of Alcohol and Drug Abuse Patient Records regulations: The Federal rules restrict any use of the information to criminally investigate or prosecute any alcohol or drug abuse patient.[facility] the event this information is protected by the Federal Confidentiality of Alcohol and Drug Abuse Patient Records regulations: The Federal rules restrict any use of the information to criminally investigate or prosecute any alcohol or drug abuse patient.[facility] the event this information is protected by the Federal Confidentiality of Alcohol and Drug Abuse Patient Records regulations: The Federal rules restrict any use of the information to criminally investigate or prosecute any alcohol or drug abuse patient.[facility] the event this information is protected by the Federal Confidentiality of Alcohol and Drug Abuse Patient Records regulations: The Federal rules restrict any use of the information to criminally investigate or prosecute any alcohol or drug abuse patient.[facility] System[facility] the event this information is protected by the Federal Confidentiality of Alcohol and Drug Abuse Patient Records regulations: The Federal rules restrict any use of the information to criminally investigate or prosecute any alcohol or drug abuse patient.[facility] SystemIn the event this information is protected by the Federal Confidentiality of Alcohol and Drug Abuse Patient Records regulations: The Federal rules restrict any use of the information to criminally investigate or prosecute any alcohol or drug abuse patient.[facility] SystemIn the event this information is protected by the Federal Confidentiality of Alcohol and Drug Abuse Patient Records regulations: The Federal rules restrict any use of the information to criminally investigate or prosecute any alcohol or drug abuse patient.[facility] SystemIn the event this information is protected by the Federal Confidentiality of Alcohol and Drug Abuse Patient Records regulations: The Federal rules restrict any use of the information to criminally investigate or prosecute any alcohol or drug abuse patient.[facility] SystemIn the event this information is protected by the Federal Confidentiality of Alcohol and Drug Abuse Patient Records regulations: The Federal rules restrict any use of the information to criminally investigate or prosecute any alcohol or drug abuse patient.[facility] SystemIn the event this information is protected by the Federal Confidentiality of Alcohol and Drug Abuse Patient Records regulations: The Federal rules restrict any use of the information to criminally investigate or prosecute any alcohol or drug abuse patient.[facility] SystemIn the event this information is protected by the Federal Confidentiality of Alcohol and Drug Abuse Patient Records regulations: The Federal rules restrict any use of the information to criminally investigate or prosecute any alcohol or drug abuse patient.[facility] SystemIn the event this information is protected by the Federal Confidentiality of Alcohol and Drug Abuse Patient Records regulations: The Federal rules restrict any use of the information to criminally investigate or prosecute any alcohol or drug abuse patient.[facility] SystemIn the event this information is protected by the Federal Confidentiality of Alcohol and Drug Abuse Patient Records regulations: The Federal rules restrict any use of the information to criminally investigate or prosecute any alcohol or drug abuse patient.[facility] SystemIn the event this information is protected by the Federal Confidentiality of Alcohol and Drug Abuse Patient Records regulations: The Federal rules restrict any use of the information to criminally investigate or prosecute any alcohol or drug abuse patient.[facility] SystemIn the event this information is protected by the Federal Confidentiality of Alcohol and Drug Abuse Patient Records regulations: The Federal rules restrict any use of the information to criminally investigate or prosecute any alcohol or drug abuse patient.[facility] Reason for Visit (unrecogniz ed section and content) Reason Comments Nm Pet Request Reason Comments Patient Education Reason Comments Prostate Cancer Reason Comments Covid Positive Reason Onset Date Comments Simulation Request Form 03/09/2024 Reason Comments Radiotherapy On-treatment Visit Reason Comments Radiology NM Specialty Diagnoses / Procedures Referred By Contac t Referred To Contact RADIATION ONCOLOGY Diagnoses Malignant neoplasm of prostate IMRT PROSTATE 25FX PLUS SIM Procedures INTENSITY MODULATED RADIATION TX DLVR SIMPLE IMRT PROSTATE 25FX PLUS SIM Lisa Rausch MD [address] [place] [address] [address] [place] [address] Referral ID Status Reason Start Date Expiration Date Visits Re quested Visits Authorized [id number] Closed 02/18/2024 08/16/2024 26 26 FOR RECORDS PERTAINING TO PATIENTS WHO ARE OR HAVE BEEN ENROLLED IN A CHEMICAL DEPENDENCY/SUBSTANCEABUSE PROGRAM, SOME INFORMATION MAY BE OMITTED. This clinical summary was aggregated from multiple sources. Caution should be exercised in using it in the provision of clinical care. This summary normalizes information from multiple sources, and as a consequence, information in this document may materially change the coding, format and clinical context of patient data. In addition, data may be omitted in some cases. CLINICAL DECISIONS SHOULD BE BASED ON THE PRIMARY CLINICAL RECORDS. [employer] [facility]. provides no warranty or guarantee of the accuracy or completeness of information in this document.
[2024-05-12] MEDS: LACTATED RINGER'S SOLUTION 1,000 ML 50 ML IV ×2 (07:31→08:15)
[2024-05-12] MEDS: CEFAZOLIN SODIUM 2 GM/50 ML D5W PREMIX IV (07:48)
[2024-05-12] MEDS: IOHEXOL 300 MG/ML - 50 ML BTL INJ (08:24)
--- NOTE | 2024-05-12 09:02 | P.URON_ITS ---
Urology Surgery Operative Note Operative Note Procedure Date: 05/12/24 Time Out Performed: yes Pre-op Diagnosis: Organ confined prostate cancer Post-op Diagnosis: same as pre-op Procedures performed: 1. Palladium-103 prostate seed implantation. 2. Cystoscopy. Anesthesia: General-LMA Primary Surgeon: James Pacheco Complications: None Estimated blood loss (mL): 10 Specimens: None Drains: 18 [place] Gutierrez catheter in the bladder Indications for Procedures: This gentleman has organ confined prostate cancer. His PSA is 11.5. His Vernon score is 4+3 = 7 and 3+4 equal 7 in 9 out of 16 cores. His PSMA PET is negative. He was desirous for radiation therapy. He has had external beam radiation therapy delivering a dose of 45 . He now presents for brachytherapy with palladium-103 and cystoscopy. He has signed an informed consent after risks were explained. Detailed description of Procedure: The patient was brought to the operating room and placed on the operating room table in the supine position. SCDs were placed on the lower extremities and turned on and functioning during the entire case. Timeout was done by all parties in the room. We all agreed upon the patient's identification and the planned procedures for this patient. Genn. anesthesia was then administered. The patient was then repositioned into the modified dorsal lithotomy position. All pressure points were satisfactorily padded. Genitalia and perineum were sterilely prepped and draped in usual fashion. The bladder was then filled with dilute contrast and saline. The catheter was removed. We started by bringing the implant bracket to the foot of the bed. The ultrasound probe was passed per rectum. The position was matched with the preoperative simulation. The grid was placed on the perineum. We then began passing needles trans perineally into the prostate using fluoroscopic and ultrasonic guidance. 17 needles were passed and 51 seeds of palladium-103 were placed in the prostate according to the treatment plan. Upon completion live dosimetry was done on the table and this showed excellent coverage throughout the entire prostate. The ultrasound probe was removed. The implant bracket was removed as was the grid. The last x-ray revealed accurate seed count. The genitalia were sterilely prepped and draped in the usual fashion. I then passed a flexible cystoscope per urethra and into the bladder. The anterior urethra was normal. The prostatic urethra revealed bilobar hypertrophy. There was no evidence of any seed or spacer protruding from the prostate. Careful panendoscopy in the bladder revealed no evidence of any tumors. There were no seeds or spacers within the bladder. The scope was then removed. The Gutierrez catheter was then placed in the bladder. It drained clear. The patient was then transferred to a [facility] bed and wheeled to PACU in stable condition. Urinary Catheter Management Urinary Catheter Management Urethral: Cath placed during this visit: no
[2024-05-12] MEDS: SOLIFENACIN SUCCINATE 10 MG TABLET PO (09:15)
== END 2024-05-12 10:15 | disposition home or self-care (01) ==
PROVIDERS: PCP Internal Medicine; Visit Provider Urology
PROC: (CPT 55875; principal; 2024-05-12 08:00)
DX: C61 Malignant neoplasm of prostate (principal); R97.20 Elevated prostate specific antigen [PSA]; E78.5 Hyperlipidemia, unspecified; R56.9 Unspecified convulsions; Z80.42 Family history of malignant neoplasm of prostate; Z87.891 Personal history of nicotine dependence
CPT/HCPCS: 55875; 36415; 72170; 76965; 77290; 77332; 77778; C1715; C2635; C2640; J0690; J1100; J2371; J2405; J2704; J3010; Q9967